=== PATIENT | female | born 1960 | race Caucasian/White ===

== ENCOUNTER 2020-04-27 11:32 | Outpatient (REF) | payer MEDICARE, OTHER, SELFPAY ==
[2020-04-27 13:21] LABS: MANUAL DIFF FLAG NO
[2020-04-27 13:24] LABS: Basophils Percent Auto 0.3 % (0-2); Eosinophils Absolute Auto 0.1 X10*3/uL (0.0-0.4); Eosinophils Percent Auto 2.3 % (0-4); Hematocrit 36.9 % (37-47); Imm Gran Abs Auto 0.01 X10*3/uL (0.00-0.03); Imm Gran Pct Auto 0.2 % (0.0-0.4); Lymphocytes Percent Auto 17.8 % (20-40); Mean Corpuscular HGB Conc 32.5 g/dl (31.0-35.0); Mean Corpuscular Volume 86.2 fL (80-98); Mean Platelet Volume 10.3 fL (9.4-12.3); Monocytes Absolute Auto 0.4 X10*3/uL (0.1-1.2); Monocytes Percent Auto 6.5 % (2-11); Neutrophils Absolute Auto 4.2 X10*3/uL (2.0-8.3); Neutrophils Percent Auto 72.9 % (45-73); Platelet Count 173 X10*3/uL (160-400); Red Blood Count 4.28 X10*6/uL (4.20-5.50); Red Cell Distribution Width 11.9 % (11.0-16.0); White Blood Count 5.7 X10*3/uL (4.8-10.8)
[2020-04-27 13:59] LABS: Alanine Aminotransferase 16 U/L (0-31); Albumin Level 4.2 g/dL (3.5-5.0); Alkaline Phosphatase 129 U/L (39-117); Anion Gap 13 (12-20); Aspartate Amino Transferase 16 U/L (5-31); Bilirubin Total 0.2 mg/dL (0.0-1.0); Blood Urea Nitrogen 24 mg/dL (9-16); C Reactive Protein 1.01 mg/dL (< or = 0.50); Calcium 8.4 mg/dL (8.4-10.2); Carbon Dioxide 23 mmol/L (22-29); Chloride 108 mmol/L (96-108); Estimated Glomerular Filt Rate 55; Glucose Random 163 mg/dL (60-115); Potassium 4.3 mmol/l (3.3-5.1); Sodium 140 mmol/L (135-145); Total Protein 6.6 g/dL (6.5-8.0)
[2020-04-27 14:13] LABS: Estimated Average Glucose 197 mg/dL; Hemoglobin A1c % 8.5 %
[2020-04-27 14:21] LABS: Free T4 (Free Thyroxine) 0.85 ng/dL (0.71-1.85); Thyroid Stimulating Hormone 1.87 mIU/mL (0.32-4.0)
[2020-04-27 18:20] LABS: Creatinine Urine 29.03 mg/dL; Microalbumin Urine < 5.0 mg/L
== END 2020-04-27 11:33 | disposition home or self-care (01) ==
LOC: HO.WFDLDS 11:32
PROVIDERS: Visit Provider Internal Medicine
DX: E11.9 Type 2 diabetes mellitus without complications (principal); K21.9 Gastro-esophageal reflux disease without esophagitis; R19.7 Diarrhea, unspecified; I10 Essential (primary) hypertension; E03.9 Hypothyroidism, unspecified
CPT/HCPCS: 36415; 80053; 82043; 83036; 84439; 84443; 85025; 86140; 87045; 87046

== ENCOUNTER 2021-01-09 18:32 | Emergency (ER) | payer OTHER, MEDICARE, SELFPAY ==
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
[2021-01-09 18:42] VITALS: BP 162/73; PULSE 106; RESP 16; TEMP 36.3; O2SAT 97; BMI 34.9
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
[2021-01-09 21:10] VITALS: BP 138/67; PULSE 87; RESP 18; TEMP 36.7; O2SAT 97
== END 2021-01-09 21:58 | disposition home or self-care (01) ==
PROVIDERS: Emergency Provider Internal Medicine; PCP Internal Medicine
DX: S13.4XXA Sprain of ligaments of cervical spine, initial encounter (principal); S20.211A Contusion of right front wall of thorax, initial encounter; E11.9 Type 2 diabetes mellitus without complications; V89.2XXA Person injured in unspecified motor-vehicle accident, traffic, initial encounter; Y93.9 Activity, unspecified; Y92.410 Unspecified street and highway as the place of occurrence of the external cause; Y99.9 Unspecified external cause status
CPT/HCPCS: 71046; 72040; 73030; 93005; 99284

== ENCOUNTER 2021-09-07 10:25 | Outpatient (REF) | payer MEDICARE, OTHER, SELFPAY ==
--- NOTE | 2021-09-07 14:12 | MHC.AU.ANR ---
Adult Audiological Evaluation Date of Visit: 09/07/21 Reason for Appointment: Audiological evaluation due to concern for decreased hearing. Ms. Estrada was seen at [facility] on 08/24/2021. At that time, the gonzales determined that test results were inconsistent and recommended a full audiological evaluation. She notes that she may have been distracted during testing. Ms. Estrada reports that she was first diagnosed with hearing loss in childhood. She states that she had several sets of PE tubes (last ones were placed in 1977. She was then told that tubes would no longer help and her hearing loss was nerve related. She was fit with hearing aids at age 15. She notes that she wore them for a number of years until they stopped working. She then purchased hearing aids again in 2013, and is pursuing new hearing aids through [facility] now. She reports difficulties following conversations in social settings or in the presence of background noise. Does patient feel they have a hearing loss?: Yes If Yes, Which Ear?: Both Ears When Was Hearing Difficulty First Noticed?: Childhood Has hearing been tested previously?: Yes Previous Hearing Test Results: [facility], 08/24/21 - Noted that results were inconsistent. Responses at that time were in the moderately severe to severe mixed hearing loss range in the left ear and severe to profound mixed hearing loss range in the right ear. SRTs were not consistent with PTAs. 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, lap hernia 2002, cystoscopy 2003, lung biopsy 2005, right rotator cuff repair 2007, right knee scope 2009, stroke 2009, MRSA infection 2010, right TNR in October and April 2014, Left TNY in July 2020, Allergies: Codeine, tramadol, acetaminophen, hydromorphone, oxycodone Medication List: Effexor, Klonopin, lamictal, Levoxyl, pantoprazole, Seroquel, hydrochloroquine, glipizide, topomax, zafurkulast, dicyclomine, albuterol sulfate, ketoconazole, fluticasone, prazosin, Vitamins and supplements Otoscopy: Right Ear: Significant scarring of the TM, clear canal Left Ear: Significant scarring of the TM, clear canal Tympanometry: Tympanometry performed due to: History of middle ear dysfunction Right Ear: Normal Middle Ear System (Type A) Left Ear: Reduced Middle Ear Compliance (Type As) Hearing Evaluation: Transducer(s) Used: Insert Earphones, Bone Conduction Method: Conventional Audiometry Stimuli Used: Pure Tones *Note: used ascending presentation,resulting in consistent responses and good FIRER MARINE /SRT agreement. Right Ear: Description of Hearing: Mild sloping to moderately-severe sensorineural hearing loss from 250-8000 Hz. Left Ear: Description of Hearing: Mild sloping to moderately-severe sensorineural hearing loss from 250-8000 Hz. Speech Recognition Threshold (SRT): Method Used: Monitored Live Voice Stimuli Used: Spondee Words Right Ear: 35 dBHL Left Ear: 35 dBHL Word Discrimination: Method: Recorded Lists Word Lists Used: NU-6 Right Ear: 100% at 70 dBHL Left Ear: 92% at 70 dBHL Comparison: Compared to the most recent evaluation: Thresholds have improved bilaterally. Responses were consistent with ascending presentation today. Better agreement and consistency of test results today compared to [facility] testing on 08/24/21. Recommendations: Audiological re-evaluation in one year. Trial with amplification is recommended. Ms. Estrada plans to return to [facility] [place] to pursue new hearing aids. Diagnosis: Primary Diagnosis: H90.3 Bilateral Sensorineural Hearing Loss Secondary Diagnosis: H69.92 Unspecified Eustachian Tube Dysfunction, Left Ear Services Performed: Services Performed: Comprehensive Audiological Evaluation (CPT 45827) Tympanometry (CPT 89209) Signature: Provider: Sherrie Lozano, [facility]
== END 2021-09-07 10:26 | disposition home or self-care (01) ==
LOC: HO.SH 10:25
PROVIDERS: Visit Provider Internal Medicine
DX: Z01.118 Encounter for examination of ears and hearing with other abnormal findings (principal); H90.3 Sensorineural hearing loss, bilateral; H69.92 Unspecified Eustachian tube disorder, left ear
CPT/HCPCS: 92557; 92567

== ENCOUNTER 2021-09-24 07:48 | Outpatient (REF) | payer MEDICARE, OTHER, SELFPAY ==
[2021-09-24 08:01] LABS: MANUAL DIFF FLAG NO
[2021-09-24 08:32] LABS: Basophils Percent Auto 0.4 % (0-2); Eosinophils Absolute Auto 0.1 X10*3/uL (0.0-0.4); Eosinophils Percent Auto 2.7 % (0-4); Hematocrit 35.8 % (37.0-47.0); Hemoglobin 11.8 g/dl (12.0-16.0); Imm Gran Abs Auto 0.01 X10*3/uL (0.00-0.03); Imm Gran Pct Auto 0.2 % (0.0-0.4); Lymphocytes Percent Auto 20.3 % (20-40); Mean Corpuscular Hemoglobin 27.9 pg (27.0-33.0); Mean Corpuscular Volume 84.6 fL (80.0-98.0); Mean Platelet Volume 9.7 fL (9.4-12.3); Monocytes Absolute Auto 0.4 X10*3/uL (0.1-1.2); Monocytes Percent Auto 8.5 % (2-11); Neutrophils Absolute Auto 3.3 x10*3/uL (2.0-8.3); Neutrophils Percent Auto 67.9 % (45-73); Platelet Count 164 X10*3/uL (160-400); Red Blood Count 4.23 X10*6/uL (4.20-5.50); White Blood Count 4.8 X10*3/uL (4.8-10.8)
[2021-09-24 08:34] LABS: Appearance Urine CLEAR; Color Urine YELLOW; Glucose Urine UA NEG (NEG); Leukocyte Esterase Urine NEG (NEG); Nitrite Urine NEG (NEG); Urine Blood NEG (NEG); Urine Ketones NEG (NEG); Urine Protein NEG (NEG-TRACE)
[2021-09-24 08:37] LABS: Estimated Average Glucose 171 mg/dL; Hemoglobin A1c % 7.6 %
[2021-09-24 08:56] LABS: Alanine Aminotransferase 20 U/L (0-31); Albumin Level 4.2 g/dL (3.5-5.0); Alkaline Phosphatase 137 U/L (39-117); Anion Gap 12 (12-20); Aspartate Amino Transferase 16 U/L (5-31); Bilirubin Total 0.4 mg/dL (0.0-1.0); Blood Urea Nitrogen 18 mg/dL (9-16); Calcium 9.9 mg/dL (8.4-10.2); Carbon Dioxide 23 mmol/L (22-29); Chloride 110 mmol/L (96-108); Cholesterol 195 mg/dL; Creatinine Urine 43.73 mg/dL; Estimated Glomerular Filt Rate 55; Glucose Fasting 180 mg/dL (60-99); HDL Cholesterol 60 mg/dL; LDL Cholesterol Calculated 117 mg/dl; Microalbum/Creatinine Ratio Ur 13.7 ug/mg cr; Potassium 4.3 mmol/L (3.3-5.1); Sodium 141 mmol/L (135-145); Total Protein 6.7 g/dL (6.5-8.0); Triglycerides 90 mg/dL
[2021-09-24 09:18] LABS: Free T4 (Free Thyroxine) 1.04 ng/dL (0.71-1.85); Thyroid Stimulating Hormone 1.01 uIU/mL (0.32-4.0); Vitamin D 25-OH Total 49.4 ng/mL (>30)
== END 2021-09-24 07:49 | disposition home or self-care (01) ==
LOC: HO.LAB 07:48
PROVIDERS: PCP Internal Medicine; Visit Provider Internal Medicine
DX: E11.9 Type 2 diabetes mellitus without complications (principal); M19.90 Unspecified osteoarthritis, unspecified site; I10 Essential (primary) hypertension; E78.00 Pure hypercholesterolemia, unspecified; M06.9 Rheumatoid arthritis, unspecified; E03.9 Hypothyroidism, unspecified
CPT/HCPCS: 36415; 80053; 80061; 81003; 82043; 82306; 83036; 84439; 84443; 85025

== ENCOUNTER 2022-04-21 12:29 | Outpatient (REF) | payer MEDICARE, OTHER, SELFPAY ==
[2022-04-21 13:45] LABS: Basophils Percent Auto 0.2 % (0-2); Eosinophils Percent Auto 0.5 % (0-4); Hematocrit 35.9 % (37.0-47.0); Hemoglobin 11.9 g/dl (12.0-16.0); Imm Gran Abs Auto 0.04 X10*3/uL (0.00-0.03); Imm Gran Pct Auto 0.5 % (0.0-0.4); Lymphocytes Absolute Auto 0.5 X10*3/uL (1.2-4.9); Lymphocytes Percent Auto 6.2 % (20-40); MANUAL DIFF FLAG SCAN; Mean Corpuscular HGB Conc 33.1 g/dl (31.0-35.0); Mean Corpuscular Volume 84.5 fL (80.0-98.0); Mean Platelet Volume 10.1 fL (9.4-12.3); Monocytes Absolute Auto 0.2 X10*3/uL (0.1-1.2); Monocytes Percent Auto 2.3 % (2-11); Neutrophils Absolute Auto 7.8 x10*3/uL (2.0-8.3); Neutrophils Percent Auto 90.3 % (45-73); Platelet Count 177 X10*3/uL (160-400); Red Blood Count 4.25 X10*6/uL (4.20-5.50); Red Cell Distribution Width 12.7 % (11.0-16.0); SCAN SMEAR FLAG 1; White Blood Count 8.6 X10*3/uL (4.8-10.8)
[2022-04-21 13:53] LABS: Estimated Average Glucose 203 mg/dL; Hemoglobin A1c % 8.7 %
[2022-04-21 14:12] LABS: Alanine Aminotransferase 20 U/L (0-31); Albumin Level 4.2 g/dL (3.5-5.0); Alkaline Phosphatase 122 U/L (39-117); Anion Gap 17 (12-20); Aspartate Amino Transferase 18 U/L (5-31); Bilirubin Total 0.3 mg/dL (0.0-1.0); Blood Urea Nitrogen 26 mg/dL (9-16); Calcium 9.3 mg/dL (8.4-10.2); Carbon Dioxide 20 mmol/L (22-29); Chloride 108 mmol/L (96-108); Estimated Glomerular Filt Rate 45; Glucose Random 284 mg/dL (60-115); Potassium 4.6 mmol/L (3.3-5.1); Sodium 140 mmol/L (135-145); Total Protein 6.9 g/dL (6.5-8.0)
[2022-04-21 14:59] LABS: SLIDE REVIEW VERIFIED
== END 2022-04-21 12:30 | disposition home or self-care (01) ==
LOC: HO.LAB 12:29
PROVIDERS: Visit Provider Internal Medicine
DX: E11.22 Type 2 diabetes mellitus with diabetic chronic kidney disease (principal); N18.9 Chronic kidney disease, unspecified; J45.909 Unspecified asthma, uncomplicated
CPT/HCPCS: 36415; 80053; 83036; 85025

== ENCOUNTER 2022-05-23 15:02 | Outpatient (REF) | payer MEDICARE, OTHER, SELFPAY ==
--- NOTE | ~2022-05-23 | US_ITS ---
EXAMINATION: US VENOUS ULTRASOUND WITH DOPPLER LOWER EXTREMITY, RIGHT CLINICAL INFORMATION: Right knee pain. COMPARISON: None TECHNIQUE: Ultrasound of the deep veins is performed from the hip to the calf with compression sonography and color and pulse Doppler assessment. Spectral analysis with color-flow imaging is performed. FINDINGS: There is normal venous compression and respiratory variation and augmented flow. The visualized common femoral vein, superficial femoral vein, profunda femoral vein, popliteal vein, and the trifurcation region shows no evidence of deep venous thrombosis. No right popliteal cyst. The subcutaneous soft tissues are unremarkable. If the patient's symptoms persist, followup ultrasound in 5 days 7 days might be of value to exclude proximal propagation from a non-visualized calf vein. US/US venous duplex LE RT IMPRESSION: No evidence of deep venous thrombosis in the visualized veins of the right lower extremity.
== END 2022-05-23 15:03 | disposition home or self-care (01) ==
LOC: HO.US 15:02
PROVIDERS: PCP Internal Medicine; Visit Provider Orthopaedic Surgery
DX: M25.561 Pain in right knee (principal)
CPT/HCPCS: 93971

== ENCOUNTER 2022-07-26 15:29 | Outpatient (REF) | payer MEDICARE, OTHER, SELFPAY ==
[2022-07-26 15:43] LABS: MANUAL DIFF FLAG NO
[2022-07-26 16:16] LABS: Basophils Percent Auto 0.6 % (0-2); Eosinophils Absolute Auto 0.2 X10*3/uL (0.0-0.4); Eosinophils Percent Auto 3.4 % (0-4); Hematocrit 36.8 % (37.0-47.0); Imm Gran Abs Auto 0.02 X10*3/uL (0.00-0.03); Imm Gran Pct Auto 0.4 % (0.0-0.4); Lymphocytes Absolute Auto 1.2 X10*3/uL (1.2-4.9); Lymphocytes Percent Auto 21.9 % (20-40); Mean Corpuscular HGB Conc 32.6 g/dl (31.0-35.0); Mean Corpuscular Hemoglobin 27.3 pg (27.0-33.0); Mean Corpuscular Volume 83.6 fL (80.0-98.0); Mean Platelet Volume 9.5 fL (9.4-12.3); Monocytes Absolute Auto 0.4 X10*3/uL (0.1-1.2); Monocytes Percent Auto 7.2 % (2-11); Neutrophils Absolute Auto 3.5 x10*3/uL (2.0-8.3); Neutrophils Percent Auto 66.5 % (45-73); Platelet Count 187 X10*3/uL (160-400); Red Cell Distribution Width 11.7 % (11.0-16.0); White Blood Count 5.3 X10*3/uL (4.8-10.8)
[2022-07-26 16:37] LABS: Estimated Average Glucose 243 mg/dL; Hemoglobin A1c % 10.1 %
[2022-07-26 16:40] LABS: Alanine Aminotransferase 17 U/L (0-31); Albumin Level 4.1 g/dL (3.5-5.0); Alkaline Phosphatase 119 U/L (39-117); Anion Gap 13 (12-20); Aspartate Amino Transferase 15 U/L (5-31); Bilirubin Total 0.4 mg/dL (0.0-1.0); Blood Urea Nitrogen 20 mg/dL (9-16); Calcium 9.4 mg/dL (8.4-10.2); Carbon Dioxide 24 mmol/L (22-29); Chloride 109 mmol/L (96-108); Estimated Glomerular Filt Rate 56; Glucose Random 157 mg/dL (60-115); Potassium 4.4 mmol/L (3.3-5.1); Sodium 142 mmol/L (135-145); Total Protein 6.6 g/dL (6.5-8.0)
[2022-07-26 16:59] LABS: Free T4 (Free Thyroxine) 0.84 ng/dL (0.71-1.85); Thyroid Stimulating Hormone 1.42 uIU/mL (0.32-4.0)
== END 2022-07-26 15:30 | disposition home or self-care (01) ==
LOC: HO.LAB 15:29
PROVIDERS: PCP Internal Medicine; Visit Provider Internal Medicine
DX: I12.9 Hypertensive chronic kidney disease with stage 1 through stage 4 chronic kidney disease, or unspecified chronic kidney disease (principal); E11.22 Type 2 diabetes mellitus with diabetic chronic kidney disease; N18.9 Chronic kidney disease, unspecified; E03.9 Hypothyroidism, unspecified
CPT/HCPCS: 36415; 80053; 83036; 84439; 84443; 85025; 87070; 87077; 87186; 87205

== ENCOUNTER 2022-08-29 15:24 | Emergency (ER) | payer MEDICARE, OTHER, SELFPAY ==
--- NOTE | ~2022-08-29 | CT_ITS ---
EXAMINATION: CT CERVICAL SPINE WITHOUT CONTRAST CLINICAL INFORMATION: Neck pain status post fall. COMPARISON: Cervical spine radiographs dated 01/09/2021. TECHNIQUE: Multiple axial images of the cervical spine were obtained without the administration of intravenous contrast. Coronal and sagittal reformatted images were obtained. This CT examination was performed using dose optimization techniques as appropriate, variously including the following: *Automated exposure control *Adjustment of mA and/or kV according to patient size (this includes techniques or standardized protocols for targeted exams where dose is matched to indication/reason for exam; i.e. extremities or head) *Use of iterative reconstruction technique DLP: 500.33 mGy-cm FINDINGS: There is mild reversal the normal cervical lordosis with moderate to severe multilevel degenerative disc disease from C4-5 to C6-7. Minimal bilateral neural foraminal narrowing is seen at these levels as well. The vertebral bodies and odontoid processes are intact. The facet joints are unremarkable. The spinous and transverse processes are intact. The cervical soft tissues are unremarkable. There is no lymphadenopathy. The thyroid gland is unremarkable. The lung apices show motion artifact limiting evaluation without overt abnormality. CT/CT cervical spine wo IV con IMPRESSION: 1. Mild reversal the normal cervical lordosis may be secondary to positioning and/or muscle spasm. 2. Multilevel degenerative changes without acute abnormality.
--- NOTE | ~2022-08-29 | CT_ITS ---
EXAMINATION: CT HEAD WITHOUT CONTRAST CLINICAL INFORMATION: Headache status post injury. COMPARISON: Head CT scan dated 08/22/2014. TECHNIQUE: Contiguous axial imaging was performed from the skull base to vertex without intravenous administration of contrast. Coronal and sagittal reformatted images were obtained. This CT examination was performed using dose optimization techniques as appropriate, variously including the following: *Automated exposure control *Adjustment of mA and/or kV according to patient size (this includes techniques or standardized protocols for targeted exams where dose is matched to indication/reason for exam; i.e. extremities or head) *Use of iterative reconstruction technique DLP: 607.30 mGy-cm FINDINGS: There is mild widening of the cortical sulci and associated ventriculomegaly. The lateral ventricles are symmetrical. The third and fourth ventricles are in their normal midline position. The basilar and prepontine cisterns are unremarkable. Mild periventricular microvascular changes are seen. There is no acute intra or extracerebral abnormality. There is no mass effect or midline shift. Sections through the bony calvarium are unremarkable. The orbits are intact. The paranasal sinuses are clear. The mastoid air cells are clear, but show hypoaeration of the mastoid processes, left greater than right without associated abnormality. CT/CT head/brain wo IV con IMPRESSION: No acute intracranial pathology.
[2022-08-29 16:12] VITALS: BP 150/70; PULSE 91; RESP 20; TEMP 36.7; O2SAT 98; BMI 37.2
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
[2022-08-29] MEDS: Ibuprofen 600 MG TABLET PO (21:53)
[2022-08-29] MEDS: Ondansetron ODT 4 MG TAB.RAPDIS TRANSLINGU (21:53)
== END 2022-08-29 23:01 | disposition home or self-care (01) ==
PROVIDERS: Emergency Provider Internal Medicine; PCP Internal Medicine
DX: S09.90XA Unspecified injury of head, initial encounter (principal); W17.89XA Other fall from one level to another, initial encounter; Y93.89 Activity, other specified; Y92.410 Unspecified street and highway as the place of occurrence of the external cause; Y99.9 Unspecified external cause status
CPT/HCPCS: 70450; 72125; 99283; 99284

== ENCOUNTER 2023-05-09 | Outpatient (REF) | payer MEDICARE, OTHER, SELFPAY ==
[2023-05-08 10:15] LABS: MANUAL DIFF FLAG NO
[2023-05-08 10:49] LABS: Basophils Percent Auto 0.6 % (0-2); Eosinophils Absolute Auto 0.1 X10*3/uL (0.0-0.4); Eosinophils Percent Auto 2.4 % (0-4); Hematocrit 39.5 % (37.0-47.0); Hemoglobin 12.9 g/dl (12.0-16.0); Imm Gran Abs Auto 0.01 X10*3/uL (0.00-0.03); Imm Gran Pct Auto 0.2 % (0.0-0.4); Lymphocytes Absolute Auto 1.1 X10*3/uL (1.2-4.9); Lymphocytes Percent Auto 22.2 % (20-40); Mean Corpuscular HGB Conc 32.7 g/dl (31.0-35.0); Mean Corpuscular Hemoglobin 28.4 pg (27.0-33.0); Mean Corpuscular Volume 86.8 fL (80.0-98.0); Mean Platelet Volume 9.9 fL (9.4-12.3); Monocytes Absolute Auto 0.4 X10*3/uL (0.1-1.2); Monocytes Percent Auto 8.6 % (2-11); Neutrophils Absolute Auto 3.4 x10*3/uL (2.0-8.3); Platelet Count 175 X10*3/uL (160-400); Red Blood Count 4.55 X10*6/uL (4.20-5.50); Red Cell Distribution Width 12.4 % (11.0-16.0); White Blood Count 5.1 X10*3/uL (4.8-10.8)
[2023-05-08 10:51] LABS: Estimated Average Glucose 157 mg/dL; Hemoglobin A1c % 7.1 % (<6.0)
[2023-05-08 11:22] LABS: Alanine Aminotransferase 16 U/L (0-31); Albumin Level 4.1 g/dL (3.5-5.0); Alkaline Phosphatase 117 U/L (39-117); Anion Gap 13 (12-20); Aspartate Amino Transferase 18 U/L (5-31); Bilirubin Total 0.3 mg/dL (0.0-1.0); Blood Urea Nitrogen 17 mg/dL (9-16); Calcium 9.7 mg/dL (8.4-10.2); Carbon Dioxide 21 mmol/L (22-29); Chloride 111 mmol/L (96-108); Estimated Glomerular Filt Rate 46; Glucose Random 163 mg/dL (60-115); Potassium 3.9 mmol/L (3.3-5.1); Sodium 141 mmol/L (135-145)
[2023-05-08 11:29] LABS: Free T4 (Free Thyroxine) 0.87 ng/dL (0.71-1.85); Thyroid Stimulating Hormone 1.03 uIU/mL (0.32-4.0)
== END 2023-05-09 00:01 | disposition home or self-care (01) ==
LOC: HO.LAB
PROVIDERS: PCP Internal Medicine; Visit Provider Internal Medicine
DX: E03.9 Hypothyroidism, unspecified (principal); I12.9 Hypertensive chronic kidney disease with stage 1 through stage 4 chronic kidney disease, or unspecified chronic kidney disease; E11.22 Type 2 diabetes mellitus with diabetic chronic kidney disease; N18.9 Chronic kidney disease, unspecified; Z86.73 Personal history of transient ischemic attack (TIA), and cerebral infarction without residual deficits
CPT/HCPCS: 36415; 80053; 83036; 84439; 84443; 85025

== ENCOUNTER 2023-06-27 15:35 | Outpatient (REF) | payer MEDICARE, OTHER, SELFPAY | END 2023-06-27 15:36 | disposition home or self-care (01) | LOC: HO.XRAY 15:35 | PROVIDERS: PCP Internal Medicine; Visit Provider Internal Medicine | DX: M16.0 Bilateral primary osteoarthritis of hip (principal); Z91.81 History of falling | CPT/HCPCS: 73502 ==

== ENCOUNTER 2023-07-14 07:31 | Outpatient (REF) | payer MEDICARE, OTHER, SELFPAY ==
--- NOTE | ~2023-07-14 | CT_ITS ---
EXAMINATION: CT HIP WITHOUT CONTRAST, RIGHT CLINICAL INFORMATION: Hip pain, status post fall. COMPARISON: X-ray right hip 06/27/2023. TECHNIQUE: Multidetector volumetric imaging was obtained through the right hip without contrast material. Multiplanar reformatted images were submitted in coronal and sagittal planes. This CT examination was performed using dose optimization techniques as appropriate, variously including the following: *Automated exposure control *Adjustment of mA and/or kV according to patient size (this includes techniques or standardized protocols for targeted exams where dose is matched to indication/reason for exam; i.e. extremities or head) *Use of iterative reconstruction technique DLP: 234 mGy-cm FINDINGS: The femoral head is well seated in the acetabulum. There is moderate right hip arthritis, with joint space loss, acetabular subchondral cysts and sclerosis. No acute displaced fracture is identified in the proximal femur or the visualized acetabulum/pubic rami. No dislocation. Moderate symphysis pubis degeneration. No large right hip joint effusion is evident. No significant muscle tear is identified by CT. There is soft tissue swelling and subcutaneous stranding/edema in the lateral soft tissues, partially imaged. No loculated collection is identified in this noncontrast CT. No groin lymphadenopathy. No acute findings seen within the pelvis. CT/CT hip RT wo IV con IMPRESSION: 1. Moderate right hip arthritis. 2. No acute fracture or dislocation is identified. There is ongoing symptoms, clinical concern, lack of weight-bearing, MRI evaluation is more sensitive. 3. Soft tissue swelling and subcutaneous edema/stranding in the lateral soft tissues of the hip.
== END 2023-07-14 07:32 | disposition home or self-care (01) ==
LOC: HO.CT 07:31
PROVIDERS: PCP Internal Medicine; Visit Provider Internal Medicine
DX: M25.551 Pain in right hip (principal)
CPT/HCPCS: 73700

== ENCOUNTER 2023-09-11 10:30 | Outpatient (REF) | payer MEDICARE, OTHER, SELFPAY ==
--- NOTE | ~2023-09-11 | XR_ITS ---
EXAMINATION: XR CHEST 2 VIEWS CLINICAL INFORMATION: Question right pneumothorax. COMPARISON: Prior chest radiographs, most recently 01/09/2021. TECHNIQUE: Frontal and lateral views of the chest were obtained. FINDINGS: The heart, great vessels, pulmonary vasculature and mediastinum are normal. The lungs show no focal infiltrate, effusion or pneumothorax. There is slight chronic blunting of the right lateral costophrenic angle. There is no acute osseous abnormality. There are old, healed right rib fractures. Median sternotomy wires are noted. A telemetry monitor device is noted. There is a right upper quadrant surgical clip. XR/XR chest 2V IMPRESSION: No active cardiopulmonary disease.
== END 2023-09-11 10:31 | disposition home or self-care (01) ==
LOC: HO.XRAY 10:30
PROVIDERS: PCP Internal Medicine; Visit Provider Internal Medicine
DX: J93.9 Pneumothorax, unspecified (principal)
CPT/HCPCS: 71046

== ENCOUNTER 2023-10-04 15:24 | Outpatient (REF) | payer MEDICARE, OTHER, SELFPAY ==
--- NOTE | ~2023-10-04 | XR_ITS ---
EXAMINATION: XR CHEST 2 VIEWS XR RIBS, RIGHT CLINICAL INFORMATION: Right apical pneumothorax. COMPARISON: Chest radiographs dated 09/11/2023. TECHNIQUE: Frontal and lateral views of the chest were obtained. 4 views of the left ribs were obtained. FINDINGS: Lungs are clear. There has been a prior median sternotomy. No consolidation, pneumothorax, or pleural effusion. The cardiomediastinal silhouette and pulmonary vasculature are normal. A hospital monitor device is noted. There are old, healed right third, fifth and seventh posterolateral rib fractures. No acute fractures are identified. There is no focal periosteal thickening. The right upper quadrant surgical clips. There is abdominal herniorrhaphy mesh, and left upper quadrant anastomotic obinna are noted. XR/XR ribs RT 2V IMPRESSION: There are old, healed right third, fifth and seventh rib fractures. No acute fracture or dislocation is seen. No pneumothorax or pleural effusion is seen. There is no focal periosteal thickening.
--- NOTE | ~2023-10-04 | XR_ITS ---
EXAMINATION: XR CHEST 2 VIEWS XR RIBS, RIGHT CLINICAL INFORMATION: Right apical pneumothorax. COMPARISON: Chest radiographs dated 09/11/2023. TECHNIQUE: Frontal and lateral views of the chest were obtained. 4 views of the left ribs were obtained. FINDINGS: Lungs are clear. There has been a prior median sternotomy. No consolidation, pneumothorax, or pleural effusion. The cardiomediastinal silhouette and pulmonary vasculature are normal. A equipment monitor phototypesetting device is noted. There are old, healed right third, fifth and seventh posterolateral rib fractures. No acute fractures are identified. There is no focal periosteal thickening. The right upper quadrant surgical clips. There is abdominal herniorrhaphy mesh, and left upper quadrant anastomotic obinna are noted. XR/XR chest 2V IMPRESSION: There are old, healed right third, fifth and seventh rib fractures. No acute fracture or dislocation is seen. No pneumothorax or pleural effusion is seen. There is no focal periosteal thickening.
== END 2023-10-04 15:25 | disposition home or self-care (01) ==
LOC: HO.XRAY 15:24
PROVIDERS: Visit Provider Internal Medicine
DX: J93.83 Other pneumothorax (principal); S22.41XD Multiple fractures of ribs, right side, subsequent encounter for fracture with routine healing
CPT/HCPCS: 71046; 71100

== ENCOUNTER 2023-10-26 13:38 | Outpatient (REF) | payer MEDICARE, OTHER, SELFPAY ==
[2023-10-26 15:51] LABS: Appearance Urine Clear; Color Urine Yellow; Glucose Urine UA >=1000 mg/dL (Negative); Leukocyte Esterase Urine Negative (Negative); Nitrite Urine Negative (Negative); PH 5.5 (5.0-9.0); Specific Gravity - Urine 1.015 (1.005-1.025); UMIC TRIGGER UACC YES; Urine Blood Negative (Negative); Urine Ketones Negative (Negative); Urine Protein Negative (Neg-Trace)
[2023-10-26 16:22] LABS: Bacteria Urine None Seen (None Seen); Hyaline Casts Urine 0-2 /LPF (0-2); RBC Urine 0-2 /HPF (0-2); Squamous Epithelial Cell Urine 0-2 /HPF (0-2); WBC Urine 0-5 /HPF (0-5)
== END 2023-10-26 13:39 | disposition home or self-care (01) ==
LOC: HO.LAB 13:38
PROVIDERS: PCP Internal Medicine; Visit Provider Internal Medicine
DX: R30.0 Dysuria (principal)
CPT/HCPCS: 81001; 81003; 87086

== ENCOUNTER 2024-09-17 14:07 | Outpatient (REF) | payer MEDICARE, OTHER, SELFPAY ==
--- NOTE | ~2024-09-17 | XR_ITS ---
EXAMINATION: XR FOOT, LEFT CLINICAL INFORMATION: M79.672 - Pain in left foot COMPARISON: None available. TECHNIQUE: AP, lateral, and oblique views of the left foot. FINDINGS: No fracture, dislocation, or suspicious bone lesion. Normal bone mineralization. Normal alignment. Mild to moderate degenerative changes first MTP joint. Mild degenerative arthritis in the dorsal intertarsal joints. Normal plantar arch. There is a small to moderate-sized plantar calcaneal spur. Soft tissues appear normal aside from vascular calcifications. XR/XR foot LT min 3V IMPRESSION: 1. Mild degenerative changes as discussed. No acute bony abnormalities. 2. Vascular calcifications in the soft tissues. Electronically signed by: Simone Howe MD 09/18/2024 02:16 PM EDT
--- OUTSIDE RECORDS SUMMARY | 2024-09-17 18:24 | XMS_ITS | Clinical Summary ---
Author Organization [facility] 299 [facility] Address [address] [place] [address] Phone Care Team Providers Care Snowblower Mechanic Name Role Phone Jose Martin Gray MD Primary Care Provider [phone] Allergies Active Allergy Reactions Criticality Noted Date Comments Codeine Anaphylaxis High 08/06/2024 Hydromorphone Unknown 11/13/2018 Other Reaction(s): Confusion/delirium, Other Reaction(s): Confusion/delirium Other Reaction(s): Confusion/delirium Oxycodone-Acetaminophen Nausea Only 10/10/2013 Level of certainty: Very Certain Tramadol Other 10/10/2013 Level of certainty: Moderately Certain; Other Reaction(s): Confusion/delirium Level of certainty: Moderately Certain ??Other Reaction(s): Confusion/delirium Medications No known medications Active Problems Problem Noted Date Diagnosed Date Other dysphagia 08/06/2024 Personal hx of gastric bypass 05/30/2024 Gastroesophageal reflux disease without esophagi tis 05/30/2024 Irritable bowel syndrome wit h both constipation and diarrhea 05/30/2024 Encounters Date Type Department Care Team Description 09/05/2024 9:12 AM EDT - 09/05/2024 11:59 PM EDT Hospital Encounter [facility] Xray [address] [place] [phone] Dysphagia, unspecified type Discharge Disposition: Home or Self Care 09/05/2024 Telephone Gastroenterology - [address] [phone] Corazon Rogers MA Results 09/03/2024 Telephone Gastroenterology - [address] [phone] Saeed Murphy MD 08/12/2024 Telephone Gastroenterology - [address] [place] [phone] Corazon Rogers MA Results 08/06/2024 3:00 PM EST Office Visit Gastroenterology - [address] [phone] Saeed Murphy MD H/O gastric bypass (Primary Dx); Other iron deficiency anemia; Dysphagia, unspecified type; Gastroesophageal reflux disease without esophagitis; Personal hx of gastric bypass; Other dysphagia from Last 3 Months Immunizations Name Administration Dates Next Due Td Tetanus diptheria (Tdvax) 7yo and older 10/04 Social History Tobacco Use Types Packs/Day Years Used Date Smoking Tobacco: Never Assessed Comments Unknown Sex and Gender Information Value Date Recorded Sex Assigned at Female 09/05/2024 9:10 AM EDT Legal Sex Female 5:32 PM EST Gender Identity Female 09/05/2024 9:10 AM EDT Sexual Orientation Straight 09/05/2024 9: 10 AM EDT Obstetrics History Last Filed Vital Signs Vital Sign Reading Time Taken Comments Blood Pressure - - Pulse - - Temperature - - Respiratory Rate - - Oxygen Saturation - - Inhaled Oxygen Concentration - - Weight 84.4 kg (186 lb) 08/06/2024 2:49 PM EST Height 162.6 cm (5' 4 ) 08/06/2024 2:49 PM EST Body Mass Index 31.93 08/06/2024 2:49 PM EST Plan of Treatment Upcoming Encounters Date Type Department Care Team (Late st Contact Info) Description 10/15/2024 10:00 AM EDT Office Visit Gastroenterology - [address] [phone] Saeed Murphy MD [address] [address] Health Maintenance Due Date Last Done Comments Breast Cancer Screening 1958 Diabetes: Annual Foot Exam 1968 Diabetes: Annual Retina Eye Exam 1968 Pneumococcal Vaccine: 50+ Years (1 of 2 - PCV) 1977 Zoster Vaccines (1 of 2) 2008 RSV Immunization Patients 60+ Years Old (1 - Risk 60-74 years 1-dose series) 2018 Cholesterol Screening (Lipid Panel) 06/04/2024 Colorectal Cancer Screening: Colonoscopy 06/04/2024 Depression Screening 06/04/2024 Falls Risk Assessment 06/04/2024 Hepatitis C Screening 06/04/2024 Medicare Annual Wellness Visit 06/04/2024 Osteoporosis Screening (Bone Density Screening) 06/04/2024 Social Influencers of Health Screening 06/04/2024 Diabetes: Annual Urine Albumin-Creatinine Ratio (uACR) 08/06/2024 Diabetes: Blood Sugar Control Test (HGBA1C) 08/06/2024 Diabetes: Annual GFR (Glomerular Filtration Rate) 08/06/2025 08/06/2024, 09/16/2020, 01/10/2020, Additional history exists DTaP,Tdap,and Td Vaccines (4 - Td or Tdap) 06/07/2033 06/07/2023, 11/16/2020, 10/04/2000 COVID-19 Vaccine Completed 03/15/2024, 07/2021, 07/03/2021, Additional history exists Influenza Vaccine Completed 03/15/2024, 08/08/2020 HIB Vaccines Aged Out No longer eligi ble based on patient's age to complete this topic HPV Vaccines Aged Out No longer eligi ble based on patient's age to complete this topic Hepatitis A Vaccines Aged Out No long er eligible based on patient's age to complete this topic Hepatitis B Vaccines Aged Out No long er eligible based on patient's age to complete this topic IPV Vaccines Aged Out No longer eligi ble based on patient's age to complete this topic MMR Vaccines Aged Out No longer eligi ble based on patient's age to complete this topic Meningococcal ACWY Vaccine Aged Out N o longer eligible based on patient's age to complete this topic Meningococcal B Vacine Aged Out No lo nger eligible based on patient's age to complete this topic RSV Immunization Patients Under 20 months Aged Out No longer eligible based on patient's age to complete this topic Varicella Vaccines Aged Out No longer eligible based on patient's age to complete this topic Procedures Procedure Name Priority Date/Time Associated Diagnosis Comments XR ESOPHAGRAM Routine 09/05/2024 9:39 AM EDT Dysphagia, unspecified type CBC WITH AUTO DIFFERENTIAL Routine 08/06/2024 3:31 PM EST Bariatric surgery status Anemia, due to inadequate iron intake COPPER, SERUM Routine 08/06/2024 3:31 PM EST Bariatric surgery status CBC AND DIFFERENTIAL Routine 08/06/2024 3:31 PM EST Bariatric surgery status Anemia, due to inadequate iron intake COMPREHENSIVE METABOLIC PANEL Routine 08/06/2024 3:31 PM EST Bariatric surgery status METHYLMALONIC ACID, SERUM Routine 08/06/2024 3:31 PM EST Bariatric surgery status FERRITIN Routine 08/06/2024 3:31 PM EST Bariatric surgery status IRON AND TIBC Routine 08/06/2024 3:31 PM EST Bariatric surgery status from Last 3 Months Results * XR Esophagram (09/05/2024 9:39 AM EDT) Anatomical Region Laterality Modality Head and Neck Radiographic Kylie ging 09/05/2024 10:3 4 AM EDT Impressions 09/05/2024 11:52 AM EDT 1. Flash laryngeal penetration without darin aspiration noted on rapid sequence swallowing of thin barium. 2. Moderate amounts of spontaneous gastroesophageal reflux visualized status post gastric bypass. -------- FINAL REPORT -------- Dictated By: Allison Morris Dictated Date: 09/05/2024 10:34 ET Assigned Physician: Bill Garcia Reviewed and Electronically Signed By: Bill Garcia Signed Date: 09/05/2024 11:52 ET Workstation ID: [id number] Transcribed By: Self Edit Transcribed Date: 09/05/2024 11:31 ET Resident/PA/BOLT HEADER: Allison Morris Narrative 09/05/2024 11:52 AM EDT FINDINGS: Double contrast esophagram performed. COMPARISON: No prior esophagram imaging HISTORY: Patient is a 64-year-old female with history of globus sensation. History of gastric bypass. Coil Former radiographs: 1 view chest radiograph demonstrates cardiac and mediastinal contours within normal limits. Sternotomy wires are present. Surgical clips are noted in the right upper quadrant consistent with history of cholecystectomy. There is a leadless pacemaker visualized over the left heart. There are posterior 5th and 7th right-sided chronic appearing rib fractures. Cervical fusion hardware is noted. Coil Former lateral radiograph of the neck demonstrates that the patient is undergone previous anterior fusion at the C4-5 level. The surgical hardware appears well-positioned and intact. Degenerative changes are present at C5-7. There is no prevertebral soft tissue swelling. The epiglottis and aryepiglottic folds are of normal appearance. The included portion of the airway is widely patent. Effervescent crystals were administered orally. Thick and thin barium were administered orally under fluoroscopic control. Pharyngoesophagram: Rapid sequence imaging of the hypopharynx during swallowing demonstrates prompt initiation of swallowing. There is normal soft palate elevation. There is flash laryngeal penetration without darin aspiration. There is no residual in the vallecula nor in the piriform sinuses. Thoracic esophagus: Normal distensibility, motility and mucosal pattern without evidence of ulceration, stricture or mass formation. Hiatal hernia: None. Gastric anatomy is consistent with gastric bypass. Reflux: Moderate amounts of spontaneous gastroesophageal reflux visualized. 13mm Barium pill: Swallowed without difficulty. Prompt passage of pill from the esophagus into the stomach. DAP: 701.5 Gycm^2 Procedure Note Bill Garcia MD - 09/05/2024 FINDINGS: Double contrast esophagram performed. COMPARISON: No prior esophagram imaging HISTORY: Patient is a 64-year-old female with history of globus sensation.History of gastric bypass. Coil Former radiographs: 1 view chest radiograph demonstrates cardiac andmediastinal contours within normal limits. Sternotomy wires are present.Surgical clips are noted in the right upper quadrant consistent withhistory of cholecystectomy. There is a leadless pacemaker visualized overthe left heart. There are posterior 5th and 7th right-sided chronicappearing rib fractures. Cervical fusion hardware is noted. Coil Former lateralradiograph of the neck demonstrates that the patient is undergone previousanterior fusion at the C4-5 level. The surgical hardware appearswell-positioned and intact. Degenerative changes are present at C5- 7.There is no prevertebral soft tissue swelling. The epiglottis andaryepiglottic folds are of normal appearance. The included portion of theairway is widely patent. Effervescent crystals were administered orally. Thick and thin barium wereadministered orally under fluoroscopic control. Pharyngoesophagram: Rapid sequence imaging of the hypopharynx duringswallowing demonstrates prompt initiation of swallowing. There is normalsoft palate elevation. There is flash laryngeal penetration without frankaspiration. There is no residual in the vallecula nor in the piriformsinuses. Thoracic esophagus: Normal distensibility, motility and mucosal patternwithout evidence of ulceration, stricture or mass formation. Hiatal hernia: None. Gastric anatomy is consistent with gastric bypass. Reflux: Moderate amounts of spontaneous gastroesophageal refluxvisualized. 13mm Barium pill: Swallowed without difficulty. Prompt passage of pillfrom the esophagus into the stomach. DAP: 701.5 Gycm^2 IMPRESSION: 1. Flash laryngeal penetration without darin aspiration noted on rapidsequence swallowing of thin barium. 2. Moderate amounts of spontaneous gastroesophageal reflux visualizedstatus post gastric bypass. -------- FINAL REPORT -------- Dictated By: Allison Morris Dictated Date: 09/05/2024 10:34 ET Assigned Physician: Bill Garcia Reviewed and Electronically Signed By: Bill Garcia Signed Date: 09/05/2024 11:52 ET Workstation ID: [id number] Transcribed By: Self Edit Transcribed Date: 09/05/2024 11:31 ET Resident/PA/BOLT HEADER: Allison Morris Saeed Murphy MD IMG FLUOROSCOPY PROCEDURES Dede l Result * (ABNORMAL) CBC auto differential (08/06/2024 3:31 PM EST) WBC 3.7(L) 4.8 - 10.8 K/mcL LAB HEMETOLOGY METHOD 08/06/2024 4:12 PM EST [facility] RBC 4.00 3.80 - 4.80 M/mcL LAB HEMETOLOGY METHOD 08/06/2024 4:12 PM EST [facility] Hemoglobin 11.8 11.5 - 16.0 g/dL LAB HEMETOLOGY METHOD 08/06/2024 4:12 PM [facility] Hematocrit 36.3 35.0 - 47.0 % LAB HEMETOLOGY METHOD 08/06/2024 4:12 PM [facility] MCV 91.2 79.0 - 98.0 FL LAB HEMETOLOGY METHOD 08/06/2024 4:12 PM [facility] MCH 29.6 27.0 - 32.0 pcg LAB HEMETOLOGY METHOD 08/06/2024 4:12 PM [facility] MCHC 32.5 32.0 - 37.0 g/dL LAB HEMETOLOGY METHOD 08/06/2024 4:12 PM [facility] RDW 13.1 11.0 - 15.0 % LAB HEMETOLOGY METHOD 08/06/2024 4:12 PM [facility] Platelets 167 130 - 400 K/mcL LAB HEMETOLOGY METHOD 08/06/2024 4:12 PM [facility] MPV 9.8 7.0 - 11.0 FL LAB HEMETOLOGY METHOD 08/06/2024 4:12 PM [facility] NRBC 0.0 <1.0 % LAB HEMETOLOGY METHOD 08/06/2024 4:12 PM [facility] NRBC Absolute 0.00 <0.10 K/mcL LAB HEMETOLOGY METHOD 08/06/2024 4:12 PM [facility] Neutrophils Relative 67.2 % LAB HEMETOLOGY METHOD 08/06/2024 4:12 PM [facility] Lymphocytes Relative 22.1 % LAB HEMETOLOGY METHOD 08/06/2024 4:12 PM [facility] Monocytes Relative 7.5 % LAB HEMETOLOGY METHOD 08/06/2024 4:12 PM [facility] Eosinophils Relative 2.4 % LAB HEMETOLOGY METHOD 08/06/2024 4:12 PM EST [facility] Basophils Relative 0.5 % LAB HEMETOLOGY METHOD 08/06/2024 4:12 PM [facility] Immature Granulocytes Relative 0.3 % LAB HEMETOLOGY METHOD 08/06/2024 4:12 PM [facility] Neutrophils Absolute 2.49 1.50 - 7.00 K/mcL LAB HEMETOLOGY METHOD 08/06/2024 4:12 PM EST [facility] Lymphocytes Absolute 0.82(L) 1.00 - 5.00 K/mcL LAB HEMETOLOGY METHOD 08/06/2024 4:12 PM [facility] Monocytes Absolute 0.28 0.20 - 1.00 K/mcL LAB HEMETOLOGY METHOD 08/06/2024 4:12 PM EST [facility] Eosinophils Absolute 0.09 0.00 - 0.50 K/mcL LAB HEMETOLOGY METHOD 08/06/2024 4:12 PM EST [facility] Basophils Absolute 0.02 0.00 - 0.20 K/mcL LAB HEMETOLOGY METHOD 08/06/2024 4:12 PM [facility] Immature Granulocytes Absolute 0.01 0.00 - 0.03 K/mcL LAB HEMETOLOGY METHOD 08/06/2024 4:12 PM [facility] Blood Venous blood specimen / Unknown Venipuncture / Unknown 08/06/2024 3:31 PM EST 08/06/2024 3:59 PM EST us Saeed Murphy MD LAB BLOOD ORDERABLES Final Resu lt [facility] [address] [place] [address], * Methylmalonic acid, serum (08/06/2024 3:31 PM EST) Pathologist [facility] Methylmalonic Acid 0.26 <0.40 umol/L 08/10/2024 11:22 AM EST [facility] Comment: If applicable, any drug confirmation testing reported here was developed and the performance characteristics determined by [facility]. This confirmation testing has not been cleared or approved by the FDA. The laboratory is regulated under CLIA as qualified to perform high-complexity testing. This test is used for patient testing purposes. It should not be regarded as investigational or for research. Test performed at [facility], [address] , [place], [place] ??[address] ? [phone] Maria Luisa Brady MD, PhD - Emergency Medicine Blood Venous blood specimen / Unknown Venipuncture / Unknown 08/06/2024 3:31 PM EST 08/06/2024 3:59 PM EST Saeed Murphy MD LAB BLOOD ORDERABLES Final Resu lt [facility] [address] [place] [address] * Iron and TIBC (08/06/2024 3:31 PM EST) [facility] Iron 54 40 - 150 mcg/dL LAB CHEMISTRY METHOD 08/06/2024 4:44 PM EST [facility] TIBC 278 250 - 450 mcg/dL LAB CHEMISTRY METHOD 08/06/2024 4:44 PM EST [facility] Iron Saturation 19 15 - 50 % LAB CHEMISTRY METHOD 08/06/2024 4:44 PM EST [facility] Blood Venous blood specimen / Unknown Venipuncture / Unknown 08/06/2024 3:31 PM EST 08/06/2024 3:59 PM EST Saeed Murphy MD LAB BLOOD ORDERABLES Final Resu lt [facility] [address] [place] [address], [place] [phone] * Copper, serum (08/06/2024 3:31 PM EST) Pathologist [facility] Copper 1474 810 - 1990 ug/L 08/09/2024 3:19 PM EST [facility] Comment: Copper values may be elevated to twice the normal levels in . Elevated results may be due to sample collected in a non-certified trace element-free tube. This test was developed and the performance characteristics determined by [facility]. It has not been cleared or approved by the FDA. The laboratory is regulated under CLIA as qualified to perform high-complexity testing. This test is used for patient testing purposes. It should not be regarded as investigational or for research. Test performed at [facility], [address] , [place], [place] ??[address] ? [phone] Maria Luisa Brady MD, PhD - Emergency Medicine Blood Venous blood specimen / Unknown Venipuncture / Unknown 08/06/2024 3:31 PM EST 08/06/2024 3:59 PM EST us Saeed Murphy MD LAB BLOOD ORDERABLES Final Resu lt [facility] [address] [place] [address] * Ferritin (08/06/2024 3:31 PM EST) Pathologist [facility] Ferritin 163 8 - 252 ng/mL LAB CHEMISTRY METHOD 08/06/2024 4:43 PM EST [facility] Blood Venous blood specimen / Unknown Venipuncture / Unknown 08/06/2024 3:31 PM EST 08/06/2024 3:59 PM EST us Saeed Murphy MD LAB BLOOD ORDERABLES Final Resu lt [facility] [address] [place] [address], [place] [phone] * (ABNORMAL) Comprehensive metabolic panel (08/06/2024 3:31 PM EST) Sodium 139 133 - 145 mmol/L LAB CHEMISTRY METHOD 08/06/2024 4:44 PM [facility] Potassium 4.7 3.5 - 5.5 mmol/L LAB CHEMISTRY METHOD 08/06/2024 4:44 PM [facility] Chloride 111(H) 96 - 110 mmol/L LAB CHEMISTRY METHOD 08/06/2024 4:44 PM [facility] CO2 22 21 - 32 mmol/L LAB CHEMISTRY METHOD 08/06/2024 4:44 PM [facility] Anion Gap 6 3 - 11 LAB CHEMISTRY METHOD 08/06/2024 4:44 PM [facility] Glucose 103(H) 70 - 100 mg/dL LAB CHEMISTRY METHOD 08/06/2024 4:44 PM [facility] BUN 26(H) 5 - 25 mg/dL LAB CHEMISTRY METHOD 08/06/2024 4:44 PM [facility] Creatinine 1.07 0.50 - 1.10 mg/dL LAB CHEMISTRY METHOD 08/06/2024 4:44 PM [facility] eGFR 57(L) >=60 mL/min/1. 73m2 LAB CHEMISTRY METHOD 08/06/2024 4:44 PM [facility] Comment:Calculation based on the??Chronic Kidney Disease Epidemiology Collaboration (CKD-EPI) equation refit??without adjustment for race. BUN/Creatinine Ratio 24.3 LAB CHEMISTRY METHOD 08/06/2024 4:44 PM [facility] Calcium 9.2 8.5 - 10.5 mg/dL LAB CHEMISTRY METHOD 08/06/2024 4:44 PM [facility] AST (SGOT) 13 10 - 42 unit/L LAB CHEMISTRY METHOD 08/06/2024 4:44 PM [facility] ALT (SGPT) 22 10 - 60 unit/L LAB CHEMISTRY METHOD 08/06/2024 4:44 PM EST [facility] Alkaline Phosphatase 157(H) 42 - 121 unit/L LAB CHEMISTRY METHOD 08/06/2024 4:44 PM EST [facility] Total Protein 6.9 6.0 - 8.0 g/dL LAB CHEMISTRY METHOD 08/06/2024 4:44 PM EST [facility] Albumin 4.0 3.2 - 5.0 g/dL LAB CHEMISTRY METHOD 08/06/2024 4:44 PM [facility] Total Bilirubin 0.3 0.0 - 1.4 mg/dL LAB CHEMISTRY METHOD 08/06/2024 4:44 PM [facility] Blood Venous blood specimen / Unknown Venipuncture / Unknown 08/06/2024 3:31 PM EST 08/06/2024 3:59 PM EST Saeed Murphy MD LAB BLOOD ORDERABLES Final Resu lt [facility] [address] [place] [address], from Last 3 Months Insurance [employer] MEDICARE MEDICARE [facility] Care Teams Snowblower Mechanic Relationship Specialty Start Date End Date Jose Martin Gray MD [address] [place] [address] Dr Yuliet [place] PCP - General Internal Medicine 07/18/24
--- OUTSIDE RECORDS SUMMARY | 2024-09-17 18:24 | XMS_ITS | Encounter Summary ---
Author Organization [facility] Address [address] [place] [address] Care Team Providers Care Sanitation Tank Washer Name Role Phone Jose Martin Gray MD Primary Care Provider Encounter Details Date Type Department Care Team (Late st Contact Info) Description 09/03/2024 Telephone Gastroenterology - [address] [place] [phone] Saeed Murphy MD [address] [place] [address] Social History Tobacco Use Types Packs/Day Years Used Date Smoking Tobacco: Never Assessed Comments Unknown Sex and Gender Information Value Date Recorded Sex Assigned at Female 09/05/2024 9:10 AM EDT Legal Sex Female 5:32 PM EST Gender Identity Female 09/05/2024 9:10 AM EDT Sexual Orientation Straight 09/05/2024 9: 10 AM EDT documented as of this encounter Progress Notes * Reyna Villarreal - 09/03/2024 11:07 AM EDT Pt r/s for 10/08/24 at 10am * Teresita Romero - 09/03/2024 10:35 AM EDT Called pt to r/s 11/07 appt, left VM to call back. documented in this encounter Plan of Treatment Upcoming Encounters Date Type Department Care Team (Late st Contact Info) Description 10/15/2024 10:00 AM EDT Office Visit Gastroenterology - [address] [facility] [address] [place] [phone] Saeed Murphy MD 299 [facility] [address] [place] [address] documented as of this encounter Visit Diagnoses Not on filedocumented in this encounter Care Teams Sanitation Tank Washer Relationship Specialty Start Date End Date Jose Martin Gray MD [address] [place] [address] PCP - General Internal Medicine 07/18/24 documented as of this encounter
--- OUTSIDE RECORDS SUMMARY | 2024-09-17 18:24 | XMS_ITS | Encounter Summary ---
Author Organization [facility] Address [address] [place] [address] Care Team Providers Care Theatrical Agent Name Role Phone Jose Martin Gray MD Primary Care Provider [phone] Reason for Referral * Imaging (Routine) - Closed Specialty Diagnoses / Procedures Referred By Halle evans Referred To Contact Radiology Diagnoses Dysphagia, unspecified type Procedures XR Esophagram Saeed Murphy MD [address] [address] Phone: tel: fax: [facility] [address] [place] [address] Phone: tel: Referral ID Status Reason Start Date Expiration Date Visits Re quested Visits Authorized [id number] Closed 08/06/2024 08/06/2025 1 1 Reason for Visit * Imaging (Routine) - Closed Specialty Diagnoses / Procedures Referred By Halle evans Referred To Contact Radiology Diagnoses Dysphagia, unspecified type Procedures XR Esophagram Saeed Murphy MD [address] [address] Phone: tel: fax: [facility] [address] [place] [address] Phone: tel: Referral ID Status Reason Start Date Expiration Date Visits Re quested Visits Authorized [id number] Closed 08/06/2024 08/06/2025 1 1 Encounter Details Date Type Department Care Team (Latest Contact Info) Description 09/05/2024 9:12 AM EDT - 09/05/2024 11:59 PM EDT Hospital Encounter [facility] [address] [place] [id number] Dysphagia, unspecified type Discharge Disposition: Home or Self Care Social History Tobacco Use Types Packs/Day Years Used Date Smoking Tobacco: Never Assessed Comments Unknown Sex and Gender Information Value Date Recorded Sex Assigned at Female 09/05/2024 9:10 AM EDT Legal Sex Female 5:32 PM EST Gender Identity Female 09/05/2024 9:10 AM EDT Sexual Orientation Straight 09/05/2024 9: 10 AM EDT documented as of this encounter Discharge Disposition Disposition Code Departure Means Destination Home or Self Care documented in this encounter Plan of Treatment Upcoming Encounters Date Type Department Care Team (Late st Contact Info) Description 10/15/2024 10:00 AM EDT Office Visit Gastroenterology - [address] [facility] [address] [place] [phone] Saeed Murphy MD [address] [facility] [address] [place] [id number] documented as of this encounter Procedures Procedure Name Priority Date/Time Associated Diagnosis Comments XR ESOPHAGRAM Routine 09/05/2024 9:39 AM EDT Dysphagia, unspecified type documented in this encounter Results * XR Esophagram (09/05/2024 9:39 AM [...] Signed Date: 09/05/2024 11:52 ET Workstation ID: [id number] Transcribed By: Self Edit Transcribed Date: 09/05/2024 11:31 ET Resident/PA/FELLER MACHINE OPERATOR: Allison Morris Narrative 09/05/2024 11:52 AM EDT FINDINGS: Double contrast esophagram performed. COMPARISON: No prior esophagram imaging HISTORY: Patient is a 64-year-old female with history of globus sensation. History of gastric bypass. Relationship Management Lead radiographs: 1 view chest radiograph demonstrates cardiac and mediastinal contours within normal limits. Sternotomy wires are present. Surgical clips are noted in the right upper quadrant consistent with history of cholecystectomy. There is a leadless pacemaker visualized over the left heart. There are posterior 5th and 7th right-sided chronic appearing rib fractures. Cervical fusion hardware is noted. Relationship Management Lead lateral radiograph of the neck demonstrates that [...] history of globus sensation.History of gastric bypass. Relationship Management Lead radiographs: 1 view chest radiograph demonstrates cardiac andmediastinal contours within normal limits. Sternotomy wires are present.Surgical clips are noted in the right upper quadrant consistent withhistory of cholecystectomy. There is a leadless pacemaker visualized overthe left heart. There are posterior 5th and 7th right-sided chronicappearing rib fractures. Cervical fusion hardware is noted. Relationship Management Lead lateralradiograph of the neck demonstrates that the [...] Signed Date: 09/05/2024 11:52 ET Workstation ID: [id number] Transcribed By: Self Edit Transcribed Date: 09/05/2024 11:31 ET Resident/PA/FELLER MACHINE OPERATOR: Allison Morris Saeed Murphy MD IMG FLUOROSCOPY PROCEDURES Dede eugene Result documented in this encounter Visit Diagnoses Diagnosis Dysphagia, unspecified type documented in this encounter Administered Medications Inactive Administered Medications - up to 3 most recent administrations Medication Order MAR Action Action Date Dose Rate Site barium sulfate (E-Z-DISK) tablet 700 mg 700 mg, oral, Once in imaging, Starting on Angi 09/05/24 at 0927, For 1 dose, Swallow whole with 1-2 swallows of water just prior to fluoroscopic examination. Given 09/05/2024 9:28 AM EDT 700 mg barium sulfate (E-Z-HD) 98 % suspension 100 mL 100 mL, oral, Once in imaging, Starting on Angi 09/05/24 at 0927, For 1 dose Given 09/05/2024 9:28 AM EDT 100 mL barium sulfate (E-Z-PAQUE) 96 % (w/w) suspension 100 mL 100 mL, oral, Once in imaging, Starting on Angi 09/05/24 at 0927, For 1 dose Given 09/05/2024 9:28 AM EDT 100 mL documented in this encounter Care Teams Theatrical Agent Relationship Specialty Start Date End Date Jose Martin Gray MD [address] [place] [address] Dr Yuliet MA PCP - General Internal Medicine 07/18/24 documented as of this encounter
--- OUTSIDE RECORDS SUMMARY | 2024-09-17 18:24 | XMS_ITS | Encounter Summary ---
Author Organization [facility] Address [address] [place] [address] Care Team Providers Care Ticker Wirer Name Role Phone Jose Martin Gray MD Primary Care Provider [phone] Reason for Visit * Reason Onset Date Comments Results 09/05/2024 Encounter Details Date Type Department Care Team (Late st Contact Info) Description 09/05/2024 Telephone Gastroenterology - [address] [place] [address] Corazon Rogers MA Results Social History Tobacco Use Types Packs/Day Years Used Date Smoking Tobacco: Never Assessed Comments Unknown Sex and Gender Information Value Date Recorded Sex Assigned at Female 09/05/2024 9:10 AM EDT Legal Sex Female 5:32 PM EST Gender Identity Female 09/05/2024 9:10 AM EDT Sexual Orientation Straight 09/05/2024 9: 10 AM EDT documented as of this encounter Progress Notes * Corazon Rogers MA - 09/05/2024 2:42 PM EDT Lmom UGI was basically normal, if she is still having symptoms she needs to have an EGD. Please call to book. * Corazon Rogers MA - 09/05/2024 2:41 PM EDT ----- Message from Tennille Murphy MD sent at 09/05/2024 2:33 PM EDT ----- Please call her. Her upper GI series really does not show anything significantly wrong. There was 1time when she swallowed and it was not perfectly coordinated and she does have some reflux. If she is still symptomatic the next step would be an upper endoscopy and if you could set this up for thatwould be great thank you documented in this encounter Plan of Treatment Upcoming Encounters Date Type Department Care Team (Late st Contact Info) Description 10/15/2024 10:00 AM EDT Office Visit Gastroenterology - [address] [facility] [address] [place] [address] Saeed Murphy MD 299 [facility] [address] [place] [address] documented as of this encounter Visit Diagnoses Not on filedocumented in this encounter Care Teams Ticker Wirer Relationship Specialty Start Date End Date Jose Martin Gray MD [address] [place] [address] [address] Jones PCP - General Internal Medicine 07/18/24 documented as of this encounter
[2024-09-18 19:03] LABS: A. Phagocytphilium DNA,RT-PCR NOT DETECTED (NOT DETECTED); Babesia Microti DNA, RT-PCR NOT DETECTED (NOT DETECTED); Borrelia Miyamotoi,DNA RT-PCR NOT DETECTED (NOT DETECTED); E.Chaffeensis DNA RT-PCR NOT DETECTED (NOT DETECTED); Lyme(Borrelia ssp)DNA RT-PCR NOT DETECTED (NOT DETECTED)
== END 2024-09-17 14:08 | disposition home or self-care (01) ==
LOC: HO.HMGCX 14:07
PROVIDERS: PCP Internal Medicine; Visit Provider Physician Assistant
DX: M79.672 Pain in left foot (principal); S30.860D Insect bite (nonvenomous) of lower back and pelvis, subsequent encounter; W57.XXXD Bitten or stung by nonvenomous insect and other nonvenomous arthropods, subsequent encounter
CPT/HCPCS: 36415; 73630; 87468; 87469; 87478; 87484; 87798

== ENCOUNTER 2024-09-17 14:07 | Outpatient (AMB) | payer MEDICARE, OTHER, SELFPAY ==
[2024-09-17 14:26] VITALS: BP 112/76; PULSE 90; TEMP 36.8; O2SAT 97
--- NOTE | 2024-09-17 14:26 | MHC.OFFWIV ---
Intake Vital Signs 09/17/24 14:26 Height 5 ft 4 in BMI Reason not done Patient refused/unable BP 112/76 Blood Pressure Location Lt brachial Position Sitting Pulse 90 Pulse Source Pulse Oximeter Temp 98.2 F Temp Source Oral Pulse Oximetry (%) 97 Oxygen Delivery Method Room Air Intake Visit Reasons: EP LT Foot bruised & painful Patient Tobacco Use Status: Former Tobacco user Allergies codeine [Codeine] Allergy (Severe, Verified 09/17/24 14:26) Anaphylaxis acetaminophen [Percocet] Allergy (Unknown, Verified 09/17/24 14:26) Unknown tramadol [TRAMADOL] Adverse Reaction (Severe, Verified 09/17/24 14:26) diarrhea/incoherence hydromorphone [Dilaudid] Adverse Reaction (Unknown, Verified 09/17/24 14:26) Hallucinations oxycodone [From Percocet] Adverse Reaction (Unknown, Verified 09/17/24 14:26) Vomiting Do you need a note to return to daycare/school/sports/work: No HPI HPI Comments History of Present Illness Details This is a 64-year-old female presenting for evaluation of a tick bite that occurred on Monday and left foot pain that she noted yesterday. On Monday evening the patient's removed a live tick from her back which was engorged at the time. Patient brought the tick to this appointment and it is alive in a sealed container. Additionally, patient reports having pain on the top of her left foot yesterday without any known injury or trauma. Patient states she has pain while wearing shoe and while ambulating. Patient denies any history of Lyme disease, ehrlichiosis or or anaplasmosis. [facility] Medical History Anxiety Depression Diabetes PTSD (post-traumatic stress disorder) Social History Alcohol intake: never Patient Tobacco Use Status: Former Tobacco user Review of Systems Const All systems reviewed & are unremarkable except as noted in HPI and below Reports no additional complaints Eyes Reports no additional complaints ENT Reports no additional complaints Card Reports no additional complaints Resp Reports no additional complaints GI Reports no additional complaints Reports no additional complaints Musc Details: left foot pain Skin/Breast Reports system reviewed and no additional complaints, except as documented and Reports other (intact tick removed right mid-back) Neuro Reports no additional complaints Psych Reports no additional complaints Endo Reports no additional complaints [place]/Lymph Reports no additional complaints Physical Exam Vital Signs: Last Vital Signs Temp 98.2 F 09/17/24 14:26 Pulse 90 09/17/24 14:26 BP 112/76 09/17/24 14:26 Pulse Ox 97 09/17/24 14:26 Oxygen Delivery Method Room Air 09/17/24 14:26 Const General: cooperative, healthy appearing, comfortable, no acute distress, well developed, alert, awake and Physically active Nutritional Appearance: average body habitus Orientation/consciousness: patient oriented x3 Limitations: no limitations Skin Other: No cutaneous lesions noted on the back at the site of tick removal; no erythema, no induration, no warmth or tenderness to touch. Neuro General: patient oriented x3 Extrem Other: Mild ecchymosis overlying the left 3rd, 4th and 5th distal metatarsals and digits on the dorsal surface of the left foot with tenderness to touch; no pain to palpation on the plantar surface of the left foot; toenails intact without discoloration or subungual hematoma. Left lower extremity: foot Psych Appearance: grossly normal Mental Status: mental status grossly normal Insight: Good insight present (Psych) Judgement: Good judgement present (Psych) Results Reviewed Results Reviewed: L. foot imaging reviewed; no acute fracture noted. Assessment & Plan Assessment & Plan (1) Tick bite of back: Comment: Tick panel is ordered and results are pending; will presume negative and patient will return in 4-6 weeks for repeat testing for a definitive result. Code(s): S30.860A - Insect bite (nonvenomous) of lower back and pelvis, initial encounter; W57.XXXA - Bitten or stung by nonvenomous insect and other nonvenomous arthropods, initial encounter Qualifiers: Encounter type: initial encounter Qualified Code(s): S30.860A - Insect bite (nonvenomous) of lower back and pelvis, initial encounter; W57.XXXA - Bitten or stung by nonvenomous insect and other nonvenomous arthropods, initial encounter Plan: Repeat testing in 4-6 weeks if tick panel drawn today is negative. (2) Foot pain, left: Comment: No acute fracture noted on imaging. Code(s): M79.672 - Pain in left foot Plan: Naprosyn 500 mg b.i.d. times 7-10 days. Patient to wear a firm soled shoe for immobilization and stabilization of this injury. Orders: Orders XR foot LT min 3V Today M79.672 - Pain in left foot Tick-borne Disease Molecular Today S30.860A - Insect bite (nonvenomous) of lower back and pelvis, initial encounter, W57.XXXA - Bitten or stung by nonvenomous insect and other nonvenomous arthropods, initial encounter Medications: New naproxen (EC-Naprosyn) 500 mg PO BID 20 tabs 0RF Coding Level of Care Code Est Pt Level 4 (65694) Diagnoses Tick bite of back, initial encounter S30.860A; W57.XXXA Encounter type: initial encounter Foot pain, left M79.672 Time Spent (min) 30
== END 2024-09-17 15:37 | disposition home or self-care (01) ==
PROVIDERS: PCP Internal Medicine; Visit Provider Physician Assistant
DX: S30.860A Insect bite (nonvenomous) of lower back and pelvis, initial encounter (principal); W57.XXXA Bitten or stung by nonvenomous insect and other nonvenomous arthropods, initial encounter; M79.672 Pain in left foot

== ENCOUNTER → 2024-09-17 14:47 | Outpatient (BNV) | payer MEDICARE, OTHER, SELFPAY | PROVIDERS: PCP Internal Medicine; Visit Provider Radiology Diagnostic Radiology | DX: M79.672 Pain in left foot (principal) | CPT/HCPCS: 73630 ==

== ENCOUNTER 2024-10-24 15:28 | Outpatient (AMB) | payer MEDICARE, OTHER, SELFPAY ==
[2024-10-24 15:31] VITALS: BP 132/70; PULSE 100; RESP 16; TEMP 36.4; O2SAT 96; BMI 32.6
--- NOTE | 2024-10-24 15:31 | A.OFFPC_ITS ---
Vital Signs 10/24/24 15:31 Height 5 ft 4 in Weight 190 lb BMI 32.6 BP 132/70 Respiration 16 Pulse 100 Pulse Source Pulse Oximeter Temp 97.6 F Temp Source Temporal Artery Scan Pulse Oximetry (%) 96 Oxygen Delivery Method Room Air Intake Visit Reasons: Hospital F/U - see comments Rn Lpn Lvn Required: No Accompanied by: Spouse Allergies codeine [Codeine] Allergy (Severe, Verified 10/24/24 15:32) Anaphylaxis acetaminophen [Percocet] Allergy (Unknown, Verified 10/24/24 15:32) Unknown tramadol [TRAMADOL] Adverse Reaction (Severe, Verified 10/24/24 15:32) diarrhea/incoherence hydromorphone [Dilaudid] Adverse Reaction (Unknown, Verified 10/24/24 15:32) Hallucinations oxycodone [From Percocet] Adverse Reaction (Unknown, Verified 10/24/24 15:32) Vomiting Tobacco use date assessed: 10/24/24 Fall risk assessment: 1 Fall in past year Last assessed Fall Risk: 10/24/24 Dental Screening Dental Screen Date: 10/24/24 Did you have a dental visit in the last 12 months?: Yes Did you have a dental problem in the last 6 months where you did not have access to dental care?: No Was dental information given to patient?: Patient has dentist (pt has dentures) HPI HPI Comments History of Present Illness Details The patient is a 64 year old female with past medical history of CVA 2014, 2022, bipolar disorder, DM, asthma, presenting for follow up She was hospitalized at [facility] from 10/12-10/15/24. She had been seen prior in [place] after falling. She was noted to have worsening subdural hematomas and was hospitalized for frequent neuro checks. She was released on 10/15. Seen again in the ER on 10/20/24 for nausea, reimaged and the bleeding was improving. Has appointment scheduled with neurosurgery November 04. GI: Recently seen by Dr Murphy for GI consultation. Ordered barium swallow. Will likely plan for colonoscopy DM: on jardiance, glipizide. Due for A1C. Checks blood glucose most mornings. Sees Dr Hansel Fregoso last year Colonoscopy: 2019 (poor prep) ROS CONSTITUTIONAL: Denies weight loss, fever and chills. HEENT: Denies changes in vision and hearing. RESPIRATORY: Denies SOB and cough. CV: Denies palpitations and CP GI: Denies abdominal pain, nausea, vomiting and diarrhea. : Denies dysuria and urinary frequency. MSK: Denies new myalgia and joint pain. SKIN: Denies rash and pruritus. NEUROLOGICAL: Denies headache PSYCHIATRIC: Denies recent changes in mood. PHYSICAL EXAM: GENERAL: Alert and oriented x 3. NAD EYES: EOMI. Anicteric. HENT: Moist mucous membranes. No scleral icterus. No cervical lymphadenopathy. LUNGS: Clear to auscultation bilaterally. CARDIOVASCULAR: Regular rate and rhythm. No murmur. No JVD. ABDOMEN: Soft, non-tender +bs EXTREMITIES: No edema. Non-tender. SKIN: No rashes or lesions. Warm. NEUROLOGIC: No focal neurological deficits. CN II-XII grossly intact PSYCHIATRIC: Cooperative. Appropriate mood and affect [facility] Medical History Anxiety PTSD (post-traumatic stress disorder) Depression Diabetes Family History Mother No problems noted. Father No problems noted. Social History Housing: House Alcohol intake: current Alcohol intake frequency: holidays/special occasions only Patient Tobacco Use Status: Former Tobacco user service: No Current occupational status: retired Cognitive needs: Yes (cane) Hearing needs: Yes (b/l hearing aids) Vision needs: Yes (rx glasses) Questionnaire PHQ-9 Over the last 2 weeks, how often have you been bothered by any of the following problems? 1. Little interest or pleasure in doing things: not at all 2. Feeling down, depressed, or hopeless: not at all 3. Trouble falling or staying asleep, or sleeping too much: not at all 4. Feeling tired or having little energy: not at all 5. Poor appetite or overeating: not at all 6. Feeling bad about yourself - or that you are a failure or have let yourself or your family down: not at all 7. Trouble concentrating on things, such as reading the newspaper or watching television: not at all 8. Moving or speaking so slowly that other people could have noticed. Or the opposite - being so fidgety or restless that you have been moving around a lot more than usual: not at all 9. Thoughts that you would be better off or of hurting yourself in some way: not at all Total score: 0 Depression Screening Interpretation: Negative Depression Screening Done: Yes 86345 - PHQ-9 Billing: Yes Source: Developed by Drs. Yariel De La Rosa, Tammi Romero, Emir Zaman and colleagues, with an educational christiane from [employer]. Thrive Questionnaire Date Thrive assessed: 10/24/24 I am a: Patient What is your living situation today?: I have a steady place to live Within the past 12 months, did the food you bought not last and you didn't have the money to get more?: Never true Within the past 12 months, did you worry whether your food would run out before you got money to buy more?: Never true Do you have trouble paying for medicines?: No Do you have trouble getting transportation to medical appointments?: No Do you have trouble paying your heating and electricity bill?: No Do you have trouble taking care of your child, family member or friend?: No Do you have trouble with day-to-day activities such as bathing, preparing meals, shopping, managing finances, etc.?: No Are you currently unemployed and looking for a job?: No Are you interested in more education?: No Please select the resources that you would like help with: None THRIVE Score: 0 AUDIT C Alcohol Use Questionnaire (AUDIT-C) 1. How often do you have a drink containing alcohol?: Monthly or less 2. How many drinks containing alcohol do you have on a typical day when you are drinking?: 1 or 2 3. How often do you have six or more drinks on one occasion?: Never Total Score: 1 MARIE-7 AMB Questionnaire MARIE-7 Date MARIE - 7 assessed: 10/24/24 Feeling nervous, anxious, or on edge: 0 = Not at all Not being able to stop or control worryin = Not at all Worrying too much about different things: 0 = Not at all Trouble relaxin = Not at all Being so restless that it is hard to sit still: 0 = Not at all Becoming easily annoyed or irritable: 0 = Not at all Feeling afraid as if something awful might happen: 0 = Not at all Total MARIE-7 score (0-4 normal; 5-9 mild; 10-14 moderate; 15-21 severe): 0 Source: Developed by Drs. Yariel De La Rosa, Tammi Romero, Emir Zaman and colleagues, with an educational christiane from [employer]. Physical exam (Primary Care) Vital Signs: Last Vital Signs Temp 97.6 F 10/24/24 15:31 Pulse 100 10/24/24 15:31 Resp 16 10/24/24 15:31 BP 132/70 10/24/24 15:31 Pulse Ox 96 10/24/24 15:31 Oxygen Delivery Method Room Air 10/24/24 15:31 BMI result Body Mass Index 32.6 Tobacco/Smoking Status: Tobacco use Status Tobacco use date assessed 10/24/24 10/24/24 15:41 Patient Tobacco Use Status Former Tobacco user 10/24/24 15:41 PHQ-9: PHQ-9 Score PHQ-9: Total score 0 10/24/24 15:55 Depression Screening Interpretation: Negative Thrive Assessment: Date of Thrive Assessment Date Thrive assessed 10/24/24 10/24/24 15:41 Coding Level of Care Code New Pt Level 4 (97016) Diagnoses Recurrent major depressive disorder, in partial remission F33.41 Depression Type: major depressive disorder Major depression recurrence: recurrent Active/Remission status: in partial remission Type 2 diabetes mellitus with hyperglycemia, without long-term current use of insulin E11.65 Diabetes mellitus type: type 2 Diabetes mellitus lineman apprentice insulin use: without lineman apprentice use Diabetes mellitus complication status: with hyperglycemia Anxiety F41.9 Subdural hematoma S06.5XAA History of CVA (cerebrovascular accident) Z86.73 Additional Codes PHQ-9 - 51346 - PHQ-9 Billing: Yes ([id number]) Assessment & Plan Assessment & Plan (1) Depression: Code(s): F32.9 - Major depressive disorder, single episode, unspecified Category: Medical Qualifiers: Depression Type: major depressive disorder Major depression recurrence: recurrent Active/Remission status: in partial remission Qualified Code(s): F33.41 - Major depressive disorder, recurrent, in partial remission (2) Diabetes: Code(s): E11.9 - Type 2 diabetes mellitus without complications Category: Medical Qualifiers: Diabetes mellitus type: type 2 Diabetes mellitus detention insulin use: without detention use Diabetes mellitus complication status: with hyperglycemia Qualified Code(s): E11.65 - Type 2 diabetes mellitus with hyperglycemia (3) Anxiety: Code(s): F41.9 - Anxiety disorder, unspecified Category: Medical (4) Subdural hematoma: Code(s): S06.5XAA - Traumatic subdural hemorrhage with loss of consciousness status unknown, initial encounter Category: Medical (5) History of CVA (cerebrovascular accident): Code(s): Z86.73 - Personal history of transient ischemic attack (TIA), and cerebral infarction without residual deficits Category: Medical Plan 64 y/o to establish care Past medical, surgical and social history reviewed DM-Check A1C Hypothyroid-continue levothyroxine Orders: Orders Complete Blood Count Auto Diff 10/24/24 E11.9 - Type 2 diabetes mellitus without complications, F32.9 - Major depressive disorder, single episode, unspecified, F41.9 - Anxiety disorder, unspecified, F43.10 - Post-traumatic stress disorder, unspecified Comprehensive Met. Panel 10/24/24 E11.9 - Type 2 diabetes mellitus without complications, F32.9 - Major depressive disorder, single episode, unspecified, F41.9 - Anxiety disorder, unspecified, F43.10 - Post-traumatic stress disorder, unspecified IRON PROFILE 10/24/24 E11.9 - Type 2 diabetes mellitus without complications, F32.9 - Major depressive disorder, single episode, unspecified, F41.9 - Anxiety disorder, unspecified, F43.10 - Post-traumatic stress disorder, unspecified Ferritin 10/24/24 E11.9 - Type 2 diabetes mellitus without complications, F32.9 - Major depressive disorder, single episode, unspecified, F41.9 - Anxiety disorder, unspecified, F43.10 - Post-traumatic stress disorder, unspecified Vitamin B12 and Folate 10/24/24 E11.9 - Type 2 diabetes mellitus without complications, F32.9 - Major depressive disorder, single episode, unspecified, F41.9 - Anxiety disorder, unspecified, F43.10 - Post-traumatic stress disorder, unspecified Comprehensive Met. Panel 3 Months E11.9 - Type 2 diabetes mellitus without complications Tick-borne Disease Molecular 10/24/24 W57.XXXA - Bitten or stung by nonvenomous insect and other nonvenomous arthropods, initial encounter TSH reflex Free T4 10/24/24 E11.9 - Type 2 diabetes mellitus without complications, F32.9 - Major depressive disorder, single episode, unspecified, F41.9 - Anxiety disorder, unspecified, F43.10 - Post-traumatic stress disorder, unspecified Hemoglobin A1c 10/24/24 E11.9 - Type 2 diabetes mellitus without complications, F32.9 - Major depressive disorder, single episode, unspecified, F41.9 - Anxiety disorder, unspecified, F43.10 - Post-traumatic stress disorder, unspecified Hemoglobin A1c 3 Months E11.9 - Type 2 diabetes mellitus without complications
--- OUTSIDE RECORDS SUMMARY | 2024-10-24 17:13 | XMS_ITS | Clinical Summary ---
Author Organization [facility] Address [address] [place] [address] Phone Care Team Providers Care Kaiwhakahaere Name Role Phone Jose Martin Gray MD Primary Care Provider [phone] Allergies Active Allergy Reactions Criticality Noted Date [...] - 09/05/2024 11:59 PM EDT Hospital Encounter [facility] Xray [address] [place] [phone] Dysphagia, unspecified type Discharge Disposition: Home or Self Care 09/05/2024 Telephone Gastroenterology - [address] [phone] Corazon Rogers MA Results 09/03/2024 Telephone Gastroenterology - [address] [phone] Saeed Murphy MD 08/12/2024 Telephone Gastroenterology - 299 [address] [facility] [address] [place] [address] oCrazon Rogers MA Results 08/06/2024 3:00 PM EST Office Visit Gastroenterology - [address] [place] [phone] Saeed Murphy MD H/O gastric bypass (Primary [...] 08/06/2024 2:49 PM EST Plan of Treatment Health Maintenance Due Date Last Done Comments Breast Cancer Screening 1958 Diabetes: Annual Foot Exam 1968 Diabetes: Annual Retina Eye Exam 1968 Pneumococcal Vaccine: 50+ Years (1 of 2 - PCV) 1977 Zoster Vaccines (1 of 2) 2008 RSV Immunization Adult Patients (1 - Risk 60-74 years 1-dose series) 2018 Cholesterol Screening (Lipid Panel) 06/04/2024 Colorectal Cancer Screening: Colonoscopy 06/04/2024 Depression Screening 06/04/2024 Falls Risk Assessment 06/04/2024 Hepatitis C Screening 06/04/2024 Medicare Annual Wellness Visit 06/04/2024 Osteoporosis Screening (Bone Density Screening) 06/04/2024 Social Influencers of Health Screening 06/04/2024 Diabetes: Annual Urine Albumin-Creatinine Ratio (uACR) 08/06/2024 Diabetes: Blood Sugar Control Test (HGBA1C) 08/06/2024 COVID-19 Vaccine (8 - Mixed Product risk season) 2024 03/15/2024, 04/27/2022, 07/03/2021, Additional history exists Diabetes: Annual GFR (Glomerular Filtration Rate) 08/06/2025 08/06/2024, 09/16/2020, 01/10/2020, Additional history exists DTaP,Tdap,and Td Vaccines (4 - Td or Tdap) 06/07/2033 06/07/2023, 11/16/2020, 10/04/2000 Influenza Vaccine Completed 03/15/2024, 08/08/2020 HIB Vaccines [...] age to complete this topic Meningococcal B Vaccine Aged Out No l onger eligible based on patient's age to complete [...] Signed Date: 09/05/2024 11:52 ET Workstation ID: [id number] Transcribed By: Self Edit Transcribed Date: 09/05/2024 11:31 ET Resident/PA/PALLET REPAIRER: Allison Morris Narrative 09/05/2024 11:52 AM EDT FINDINGS: Double contrast esophagram performed. COMPARISON: No prior esophagram imaging HISTORY: Patient is a 64-year-old female with history of globus sensation. History of gastric bypass. Child Care Centre Director radiographs: 1 view chest radiograph demonstrates cardiac and mediastinal contours within normal limits. Sternotomy wires are present. Surgical clips are noted in the right upper quadrant consistent with history of cholecystectomy. There is a leadless pacemaker visualized over the left heart. There are posterior 5th and 7th right-sided chronic appearing rib fractures. Cervical fusion hardware is noted. Child Care Centre Director lateral radiograph of the neck demonstrates that [...] history of globus sensation.History of gastric bypass. Child Care Centre Director radiographs: 1 view chest radiograph demonstrates cardiac andmediastinal contours within normal limits. Sternotomy wires are present.Surgical clips are noted in the right upper quadrant consistent withhistory of cholecystectomy. There is a leadless pacemaker visualized overthe left heart. There are posterior 5th and 7th right-sided chronicappearing rib fractures. Cervical fusion hardware is noted. Child Care Centre Director lateralradiograph of the neck demonstrates that the [...] Signed Date: 09/05/2024 11:52 ET Workstation ID: [id number] Transcribed By: Self Edit Transcribed Date: 09/05/2024 11:31 ET Resident/PA/PALLET REPAIRER: Allison Morris Saeed Murphy MD IMG FLUOROSCOPY PROCEDURES Dede l Result * (ABNORMAL) CBC auto differential (08/06/2024 3:31 PM EST) WBC 3.7(L) 4.8 - 10.8 K/mcL LAB HEMETOLOGY METHOD 08/06/2024 4:12 PM [facility] RBC 4.00 3.80 - 4.80 M/mcL LAB HEMETOLOGY METHOD 08/06/2024 4:12 PM [facility] Hemoglobin 11.8 11.5 - 16.0 g/dL LAB HEMETOLOGY METHOD 08/06/2024 4:12 PM [facility] Hematocrit 36.3 35.0 - 47.0 % LAB HEMETOLOGY METHOD 08/06/2024 4:12 PM [facility] MCV 91.2 79.0 - 98.0 FL LAB HEMETOLOGY METHOD 08/06/2024 4:12 PM [facility] MCH 29.6 27.0 - 32.0 pcg LAB HEMETOLOGY METHOD 08/06/2024 4:12 PM [facility] MCHC 32.5 32.0 - 37.0 g/dL LAB HEMETOLOGY METHOD 08/06/2024 4:12 PM [facility] RDW 13.1 11.0 - 15.0 % LAB HEMETOLOGY METHOD 08/06/2024 4:12 PM [facility] Platelets 167 130 - 400 K/mcL LAB HEMETOLOGY METHOD 08/06/2024 4:12 PM [facility] MPV 9.8 7.0 - 11.0 FL LAB HEMETOLOGY METHOD 08/06/2024 4:12 PM [facility] NRBC 0.0 <1.0 % LAB HEMETOLOGY METHOD 08/06/2024 4:12 PM [facility] NRBC Absolute 0.00 <0.10 K/mcL LAB HEMETOLOGY METHOD 08/06/2024 4:12 PM [facility] Neutrophils Relative 67.2 % LAB HEMETOLOGY METHOD 08/06/2024 4:12 PM [facility] Lymphocytes Relative 22.1 % LAB HEMETOLOGY METHOD 08/06/2024 4:12 PM [facility] Monocytes Relative 7.5 % LAB HEMETOLOGY METHOD 08/06/2024 4:12 PM [facility] Eosinophils Relative 2.4 % LAB HEMETOLOGY METHOD 08/06/2024 4:12 PM [facility] Basophils Relative 0.5 % LAB HEMETOLOGY METHOD 08/06/2024 4:12 PM [facility] Immature Granulocytes Relative 0.3 % LAB HEMETOLOGY METHOD 08/06/2024 4:12 PM EST [facility] Neutrophils Absolute 2.49 1.50 - 7.00 K/mcL LAB HEMETOLOGY METHOD 08/06/2024 4:12 PM EST [facility] Lymphocytes Absolute 0.82(L) 1.00 - 5.00 K/mcL LAB HEMETOLOGY METHOD 08/06/2024 4:12 PM EST [facility] Monocytes Absolute 0.28 0.20 - 1.00 K/mcL LAB HEMETOLOGY METHOD 08/06/2024 4:12 PM EST [facility] Eosinophils Absolute 0.09 0.00 - 0.50 K/mcL LAB HEMETOLOGY METHOD 08/06/2024 4:12 PM EST [facility] Basophils Absolute 0.02 0.00 - 0.20 K/mcL LAB HEMETOLOGY METHOD 08/06/2024 4:12 PM EST [facility] Immature Granulocytes Absolute 0.01 0.00 - 0.03 K/mcL LAB HEMETOLOGY METHOD 08/06/2024 4:12 PM EST [facility] Blood Venous blood specimen / Unknown Venipuncture / Unknown 08/06/2024 3:31 PM EST 08/06/2024 3:59 PM EST Saeed Murphy MD LAB BLOOD ORDERABLES Final Resu lt [facility] [address] [place] [address], * Methylmalonic acid, serum (08/06/2024 3:31 PM EST) Methylmalonic Acid 0.26 <0.40 umol/L 08/10/2024 11:22 AM EST [facility] Comment: If applicable, any drug confirmation testing reported here was developed and the performance characteristics determined by [facility]. This confirmation testing has not been cleared or approved by the FDA. The laboratory is regulated under CLIA as qualified to perform high-complexity testing. This test is used for patient testing purposes. It should not be regarded as investigational or for research. Test performed at [facility], [address] , [place], [place] ??[address] ? [phone] Maria Luisa Brady MD, PhD - Sap Trainer Blood Venous blood specimen / Unknown Venipuncture / Unknown 08/06/2024 3:31 PM EST 08/06/2024 3:59 PM EST Saeed Murphy MD LAB BLOOD ORDERABLES Final Resu lt Performing Organization Address [facility]/ZIP Co de Phone Number [facility] [address] [place] [place] [address] * Iron and TIBC (08/06/2024 3:31 PM EST) Iron 54 40 - 150 mcg/dL LAB CHEMISTRY METHOD 08/06/2024 4:44 PM EST [facility] TIBC 278 250 - 450 mcg/dL LAB CHEMISTRY METHOD 08/06/2024 4:44 PM EST [facility] Iron Saturation 19 15 - 50 % LAB CHEMISTRY METHOD 08/06/2024 4:44 PM EST [facility] Blood Venous blood specimen / Unknown Venipuncture / Unknown 08/06/2024 3:31 PM EST 08/06/2024 3:59 PM EST Saeed Murphy MD LAB BLOOD ORDERABLES Final Resu lt Performing Organization Address City/[facility]/ZIP Co de Phone Number [facility] [address] [place] [address], * Copper, serum (08/06/2024 3:31 PM EST) Copper 1474 810 - 1990 ug/L 08/09/2024 3:19 PM EST [facility] Comment: Copper values may be elevated to twice the normal levels in . Elevated results may be due to sample collected in a non-certified trace element-free tube. This test was developed and the performance characteristics determined by [facility]. It has not been cleared or approved by the FDA. The laboratory is regulated under CLIA as qualified to perform high-complexity testing. This test is used for patient testing purposes. It should not be regarded as investigational or for research. Test performed at [facility], [address] , [place], [place] ??[address] ? [phone] Maria Luisa Brady MD, PhD - Sap Trainer Blood Venous blood specimen / Unknown Venipuncture / Unknown 08/06/2024 3:31 PM EST 08/06/2024 3:59 PM EST us Saeed Murphy MD LAB BLOOD ORDERABLES Final Resu lt [facility] [address] [place] [address] * Ferritin (08/06/2024 3:31 PM EST) Pathologist [facility] Ferritin 163 8 - 252 ng/mL LAB CHEMISTRY METHOD 08/06/2024 4:43 PM EST [facility] Blood Venous blood specimen / Unknown Venipuncture / Unknown 08/06/2024 3:31 PM EST 08/06/2024 3:59 PM EST us Saeed Murphy MD LAB BLOOD ORDERABLES Final Resu lt [facility] [address] [place] [address], * (ABNORMAL) Comprehensive metabolic panel (08/06/2024 3:31 PM EST) Pathologist [facility] Sodium 139 133 - 145 mmol/L LAB CHEMISTRY METHOD 08/06/2024 4:44 PM EST [facility] Potassium 4.7 3.5 - 5.5 mmol/L LAB CHEMISTRY METHOD 08/06/2024 4:44 PM [facility] Chloride 111(H) 96 - 110 mmol/L LAB CHEMISTRY METHOD 08/06/2024 4:44 PM [facility] CO2 22 21 - 32 mmol/L LAB CHEMISTRY METHOD 08/06/2024 4:44 PM [facility] Anion Gap 6 3 - 11 LAB CHEMISTRY METHOD 08/06/2024 4:44 PM [facility] Glucose 103(H) 70 - 100 mg/dL LAB CHEMISTRY METHOD 08/06/2024 4:44 PM [facility] BUN 26(H) 5 - 25 mg/dL LAB CHEMISTRY METHOD 08/06/2024 4:44 PM [facility] Creatinine 1.07 0.50 - 1.10 mg/dL LAB CHEMISTRY METHOD 08/06/2024 4:44 PM [facility] eGFR 57(L) >=60 mL/min/1. 73m2 LAB CHEMISTRY METHOD 08/06/2024 4:44 PM [facility] Comment:Calculation based on the??Chronic Kidney Disease Epidemiology Collaboration (CKD-EPI) equation refit??without adjustment for race. BUN/Creatinine Ratio 24.3 LAB CHEMISTRY METHOD 08/06/2024 4:44 PM [facility] Calcium 9.2 8.5 - 10.5 mg/dL LAB CHEMISTRY METHOD 08/06/2024 4:44 PM [facility] AST (SGOT) 13 10 - 42 unit/L LAB CHEMISTRY METHOD 08/06/2024 4:44 PM [facility] ALT (SGPT) 22 10 - 60 unit/L LAB CHEMISTRY METHOD 08/06/2024 4:44 PM [facility] Alkaline Phosphatase 157(H) 42 - 121 unit/L LAB CHEMISTRY METHOD 08/06/2024 4:44 PM [facility] Total Protein 6.9 6.0 - 8.0 g/dL LAB CHEMISTRY METHOD 08/06/2024 4:44 PM EST [facility] Albumin 4.0 3.2 - 5.0 g/dL LAB CHEMISTRY METHOD 08/06/2024 4:44 PM EST [facility] Total Bilirubin 0.3 0.0 - 1.4 mg/dL LAB CHEMISTRY METHOD 08/06/2024 4:44 PM EST [facility] Blood Venous blood specimen / Unknown Venipuncture / Unknown 08/06/2024 3:31 PM EST 08/06/2024 3:59 PM EST Saeed Murphy MD LAB BLOOD ORDERABLES Final Resu lt [facility] [address] [place] [address], from Last 3 Months Insurance [employer] MEDICARE MEDICARE [facility] Care Teams Kaiwhakahaere Relationship Specialty Start Date End Date Jose Martin Gray MD [address] [place] [address] Dr Yuliet [place] PCP - General Internal Medicine 07/18/24
== END 2024-10-24 16:00 | disposition home or self-care (01) ==
LOC: HO.HMCHD 15:29
PROVIDERS: PCP Internal Medicine; Visit Provider Internal Medicine
DX: F33.41 Major depressive disorder, recurrent, in partial remission (principal); E11.65 Type 2 diabetes mellitus with hyperglycemia; F41.9 Anxiety disorder, unspecified; S06.5XAA Traumatic subdural hemorrhage with loss of consciousness status unknown, initial encounter; Z86.73 Personal history of transient ischemic attack (TIA), and cerebral infarction without residual deficits

== ENCOUNTER → 2024-10-24 15:28 | Outpatient (BNVA) | payer MEDICARE, OTHER, SELFPAY | PROVIDERS: PCP Internal Medicine; Visit Provider Internal Medicine | DX: F33.41 Major depressive disorder, recurrent, in partial remission (principal); E11.65 Type 2 diabetes mellitus with hyperglycemia; F41.9 Anxiety disorder, unspecified; S06.5XAD Traumatic subdural hemorrhage with loss of consciousness status unknown, subsequent encounter; E03.9 Hypothyroidism, unspecified; Z86.73 Personal history of transient ischemic attack (TIA), and cerebral infarction without residual deficits; Z79.899 Other long term (current) drug therapy | CPT/HCPCS: 96127; 99202 ==

== ENCOUNTER 2024-11-11 15:59 | Outpatient (REF) | payer MEDICARE, OTHER, SELFPAY ==
--- OUTSIDE RECORDS SUMMARY | 2024-11-11 16:02 | XMS_ITS | Clinical Summary ---
Author Organization [facility] 299 [facility] Address [address] [place] [address] Phone Care Team Providers Care Respiratory Therapist Assistant Name Role Phone Jose Martin Gray MD Primary Care Provider [phone] Allergies Active Allergy Reactions Criticality Noted Date [...] Encounters Date Type Department Care Team Description 10/29/2024 Telephone Gastroenterology - [address] [phone] Zeina Robertson MA 09/05/2024 9:12 AM EDT - 09/05/2024 11:59 PM EDT Hospital Encounter [facility] Xray [address] [place] [phone] Dysphagia, unspecified type Discharge Disposition: Home or Self Care 09/05/2024 Telephone Gastroenterology - [address] [phone] Corazon Rogers MA Results 09/03/2024 Telephone Gastroenterology - 299 [facility] 299 [facility] [address] [place] [phone] Saeed Murphy MD from Last 3 Months Immunizations Name Administration [...] Care Team (Late st Contact Info) Description 01/02/2025 10:00 AM EDT Appointment [facility] Endoscopy [address] [place] [phone] Reyna Flaherty MD [address] [address] Health Maintenance Due Date Last Done Comments [...] 09/05/2024 9:39 AM EDT Dysphagia, unspecified type COMPREHENSIVE METABOLIC PANEL Routine 08/06/2024 3:31 PM EST Bariatric surgery status from Last 3 Months or Most Recently Relevant to Health Maintenance Results * XR Esophagram (09/05/2024 9:39 AM [...] Signed Date: 09/05/2024 11:52 ET Workstation ID: [id number] Transcribed By: Self Edit Transcribed Date: 09/05/2024 11:31 ET Resident/PA/WAFER PRODUCTION LEAD WORKER: Allison Morris Narrative 09/05/2024 11:52 AM EDT FINDINGS: Double contrast esophagram performed. COMPARISON: No prior esophagram imaging HISTORY: Patient is a 64-year-old female with history of globus sensation. History of gastric bypass. Blade Grinder radiographs: 1 view chest radiograph demonstrates cardiac and mediastinal contours within normal limits. Sternotomy wires are present. Surgical clips are noted in the right upper quadrant consistent with history of cholecystectomy. There is a leadless pacemaker visualized over the left heart. There are posterior 5th and 7th right-sided chronic appearing rib fractures. Cervical fusion hardware is noted. Blade Grinder lateral radiograph of the neck demonstrates that [...] history of globus sensation.History of gastric bypass. Blade Grinder radiographs: 1 view chest radiograph demonstrates cardiac andmediastinal contours within normal limits. Sternotomy wires are present.Surgical clips are noted in the right upper quadrant consistent withhistory of cholecystectomy. There is a leadless pacemaker visualized overthe left heart. There are posterior 5th and 7th right-sided chronicappearing rib fractures. Cervical fusion hardware is noted. Blade Grinder lateralradiograph of the neck demonstrates that the [...] Signed Date: 09/05/2024 11:52 ET Workstation ID: [id number] Transcribed By: Self Edit Transcribed Date: 09/05/2024 11:31 ET Resident/PA/WAFER PRODUCTION LEAD WORKER: Allison Morris Saeed Murphy MD IMG FLUOROSCOPY PROCEDURES Dede l Result * (ABNORMAL) Comprehensive metabolic panel (08/06/2024 3:31 PM EST) Sodium 139 133 - 145 mmol/L LAB CHEMISTRY METHOD 08/06/2024 4:44 PM [facility] Potassium 4.7 3.5 - 5.5 mmol/L LAB CHEMISTRY METHOD 08/06/2024 4:44 PM [facility] Chloride 111(H) 96 - 110 mmol/L LAB CHEMISTRY METHOD 08/06/2024 4:44 PM [facility] CO2 22 21 - 32 mmol/L LAB CHEMISTRY METHOD 08/06/2024 4:44 PM [facility] Anion Gap 6 3 - 11 LAB CHEMISTRY METHOD 08/06/2024 4:44 PM [facility] Glucose 103(H) 70 - 100 mg/dL LAB CHEMISTRY METHOD 08/06/2024 4:44 PM [facility] BUN 26(H) 5 - 25 mg/dL LAB CHEMISTRY METHOD 08/06/2024 4:44 PM [facility] Creatinine 1.07 0.50 - 1.10 mg/dL LAB CHEMISTRY METHOD 08/06/2024 4:44 PM [facility] eGFR 57(L) >=60 mL/min/1. 73m2 LAB CHEMISTRY METHOD 08/06/2024 4:44 PM [facility] Comment:Calculation based on the??Chronic Kidney Disease Epidemiology Collaboration (CKD-EPI) equation refit??without adjustment for race. BUN/Creatinine Ratio 24.3 LAB CHEMISTRY METHOD 08/06/2024 4:44 PM [facility] Calcium 9.2 8.5 - 10.5 mg/dL LAB CHEMISTRY METHOD 08/06/2024 4:44 PM [facility] AST (SGOT) 13 10 - 42 unit/L LAB CHEMISTRY METHOD 08/06/2024 4:44 PM [facility] ALT (SGPT) 22 10 - 60 unit/L LAB CHEMISTRY METHOD 08/06/2024 4:44 PM [facility] Alkaline Phosphatase 157(H) 42 - 121 unit/L LAB CHEMISTRY METHOD 08/06/2024 4:44 PM [facility] Total Protein 6.9 6.0 - 8.0 g/dL LAB CHEMISTRY METHOD 08/06/2024 4:44 PM [facility] Albumin 4.0 3.2 - 5.0 g/dL LAB CHEMISTRY METHOD 08/06/2024 4:44 PM [facility] Total Bilirubin 0.3 0.0 - 1.4 mg/dL LAB CHEMISTRY METHOD 08/06/2024 4:44 PM [facility] Blood Venous blood specimen / Unknown Venipuncture / Unknown 08/06/2024 3:31 PM EST 08/06/2024 3:59 PM EST Saeed Murphy MD LAB BLOOD ORDERABLES Final Resu lt [facility] [address] [place] [address], from Last 3 Months or Most Recently Relevant to Health Maintenance Insurance [employer] MEDICARE MEDICARE [facility] Care Teams Respiratory Therapist Assistant Relationship Specialty Start Date End Date Jose Martin Gray MD [address] [place] [address] Dr Yuliet [place] PCP - General Internal Medicine 07/18/24
[2024-11-11 16:17] LABS: MANUAL DIFF FLAG NO
[2024-11-11 17:23] LABS: Basophils Percent Auto 0.5 % (0-2); Eosinophils Absolute Auto 0.2 X10*3/uL (0.0-0.4); Eosinophils Percent Auto 3.6 % (0-4); Estimated Average Glucose 160 mg/dL; Hematocrit 35.1 % (37.0-47.0); Hemoglobin 11.3 g/dl (12.0-16.0); Hemoglobin A1C 159.8313 umol/L; Hemoglobin A1c % 7.2 % (<6.0); Imm Gran Abs Auto 0.02 X10*3/uL (0.00-0.03); Imm Gran Pct Auto 0.5 % (0.0-0.4); Lymphocytes Absolute Auto 0.9 X10*3/uL (1.2-4.9); Lymphocytes Percent Auto 21.4 % (20-40); Mean Corpuscular HGB Conc 32.2 g/dl (31.0-35.0); Mean Corpuscular Hemoglobin 29.9 pg (27.0-33.0); Mean Corpuscular Volume 92.9 fL (80.0-98.0); Mean Platelet Volume 9.6 fL (9.4-12.3); Monocytes Absolute Auto 0.4 X10*3/uL (0.1-1.2); Monocytes Percent Auto 8.6 % (2-11); Neutrophils Absolute Auto 2.8 x10*3/uL (2.0-8.3); Neutrophils Percent Auto 65.4 % (45-73); Platelet Count 205 X10*3/uL (160-400); Red Blood Count 3.78 X10*6/uL (4.20-5.50); Red Cell Distribution Width 13.5 % (11.0-16.0); Total Hemoglobin (HGBA1C) 2918.6306 umol/L; White Blood Count 4.2 X10*3/uL (4.8-10.8)
[2024-11-11 17:59] LABS: Alanine Aminotransferase 15 U/L (0-31); Albumin Level 4.1 g/dL (3.5-5.0); Alkaline Phosphatase 140 U/L (39-117); Anion Gap 11 (12-20); Aspartate Amino Transferase 18 U/L (5-31); Bilirubin Total 0.3 mg/dL (0.0-1.0); Blood Urea Nitrogen 22 mg/dL (9-16); Calcium 8.9 mg/dL (8.4-10.2); Carbon Dioxide 21 mmol/L (22-29); Chloride 112 mmol/L (96-108); Estimated Glomerular Filt Rate > 60; Glucose Random 109 mg/dL (60-115); Iron 55 mcg/dL (30-160); Percent Iron Saturation 23 % (15-50); Potassium 4.1 mmol/L (3.3-5.1); Sodium 140 mmol/L (135-145); Total Iron Binding Capacity 237 mcg/dL (228-428); Total Protein 6.9 g/dL (6.5-8.0); Unsaturated Iron Binding 182 ug/dL
[2024-11-11 18:04] LABS: Ferritin 229 ng/mL (10-250); TSH reflex Free T4 0.49 uIU/mL (0.32-4.0)
[2024-11-11 18:25] LABS: Folate > 20.0 ng/mL (> or = 4.0); Vitamin B12 > 2000 pg/mL (200-900)
[2024-11-13 13:53] LABS: A. Phagocytphilium DNA,RT-PCR NOT DETECTED (NOT DETECTED); Babesia Microti DNA, RT-PCR NOT DETECTED (NOT DETECTED); Borrelia Miyamotoi,DNA RT-PCR NOT DETECTED (NOT DETECTED); E.Chaffeensis DNA RT-PCR NOT DETECTED (NOT DETECTED); Lyme(Borrelia ssp)DNA RT-PCR NOT DETECTED (NOT DETECTED)
== END 2024-11-11 16:00 | disposition home or self-care (01) ==
LOC: HO.LAB 15:59
PROVIDERS: PCP Internal Medicine; Visit Provider Internal Medicine
DX: E11.9 Type 2 diabetes mellitus without complications (principal); F32.9 Major depressive disorder, single episode, unspecified; F43.10 Post-traumatic stress disorder, unspecified; F41.9 Anxiety disorder, unspecified; T14.8XXA Other injury of unspecified body region, initial encounter
CPT/HCPCS: 36415; 80053; 82607; 82728; 82746; 83036; 83540; 84443; 85025; 87468; 87469; 87478; 87484; 87798

== ENCOUNTER 2025-01-01 09:12 | Outpatient (AMB) | payer MEDICARE, OTHER, SELFPAY ==
--- NOTE | 2025-01-01 09:13 | A.OFFPC_ITS ---
Vital Signs 01/01/25 09:23 Height 5 ft 4 in Weight 83.007 kg BMI 31.4 BP 118/64 Blood Pressure Location Lt brachial Position Sitting Respiration 18 Pulse 100 Pulse Source Pulse Oximeter Temp 98.6 F Temp Source Temporal Artery Scan Pulse Oximetry (%) 96 Oxygen Delivery Method Room Air Intake Visit Reasons: rash and diarrhea/upcoming colonoscopy Manager Cosmetics Required: No Accompanied by: Self / Same As Patient Allergies codeine (Codeine) Allergy (Severe, Verified 01/01/25 09:13) Anaphylaxis acetaminophen (Percocet) Allergy (Unknown, Verified 01/01/25 09:13) Unknown tramadol (TRAMADOL) Adverse Reaction (Severe, Verified 01/01/25 09:13) diarrhea/incoherence hydromorphone (Dilaudid) Adverse Reaction (Unknown, Verified 01/01/25 09:13) Hallucinations oxycodone (From Percocet) Adverse Reaction (Unknown, Verified 01/01/25 09:13) Vomiting Medication List - Last Reconciled 01/01/25 by MARY ELLEN Boyd albuterol sulfate 90 mcg/actuation 2 puffs inhalation Q4H PRN atorvastatin 10 mg PO DAILY empagliflozin (Jardiance) 10 mg PO DAILY folic acid 1 mg PO QAM glipizide ER 10 mg PO BID ibuprofen 600 mg PO Q6H PRN ketoconazole 2% 1 appl topical BID lamotrigine 100 mg PO BID levothyroxine 100 mcg PO DAILY methotrexate sodium 15 mg PO QWEEK pantoprazole 40 mg PO DAILY perfluorohexyloctane (PF) 100% (Miebo (PF)) drps ophthalmic (eye) prazosin 1 mg PO BEDTIME prednisone 10 mg PO DIRECTED quetiapine 300 mg PO BEDTIME quetiapine 100 mg PO TID PRN tizanidine 2 - 4 mg PO TID PRN topiramate 100 mg PO BID venlafaxine ER 150 mg PO BID venlafaxine ER 75 mg PO .at night zafirlukast 20 mg PO BID Tobacco use date assessed: 10/24/24 Dental Screening Dental Screen Date: 10/24/24 HPI HPI Comments History of Present Illness Details 64 year old female with past medical his tory of CVA 2014, 2022, bipolar disorder, DM, asthma, presenting for evaluation of a rash that started 4 days ago. She is unsure of any new contacts but does not believe there have been any. No new medications. No known allergies other than narcotics and tylenol non of which she ingested. She does report the nigh before rash eruption she ate lobster and clams but states she has had these before without any adverse effects. No insect bites except for a tick bite 11/10. Tick panel was checked at that time but the day after bite. She has large patches on extremities, back, abd, under L breast. She had a lesion on her face which resolved but reports there is still pruritus. Endorses fatigue as well. No other associated symptoms. ROS: General: No fevers, malaise, unintentional weight loss. see hpi HEENT: No blurred vision, diplopia. No sore throat, nasal congestion, rhinorrhea, sinus pain, ear pain Cardiovascular: No chest pain, palpitations, or leg edema Respiratory: No shortness of breath, wheezing, cough GI: No abdominal pain, nausea, vomiting, diarrhea, constipation, melena, hematochezia : No dysuria, hematuria, increased urinary frequency, decreased urinary output MSK: No myalgia, back pain Neuro: No headaches, weakness, paresthesias Skin: see hpi EXAM: Constitutional - Awake and Alert, No apparent distress Eyes - PERRL Cardiovascular - S1S2, RRR, No edema Respiratory - Normal lung expansion, Normal respiratory effort, No respiratory distress, CTA bilaterally Extremities - no calf tenderness bilaterally, no swelling Skin - Warm/Dry. Large oblong faint erythematous patches (largest about 15 cm by 8cm) on L upper chest, several patches under left breast and abdomen. No consistent bull's-eye Neurological - Alert & oriented x3 Psychological - Appropriate affect [facility] Medical History (Updated 01/01/25 @ 09:42 by MARY ELLEN Boyd) Rash Anxiety PTSD (post-traumatic stress disorder) Depression Diabetes Family History Mother No problems noted. Father No problems noted. Social History Housing: House Alcohol intake: current Alcohol intake frequency: holidays/special occasions only Patient Tobacco Use Status: Former Tobacco user service: No Current occupational status: retired Cognitive needs: Yes (cane) Hearing needs: Yes (b/l hearing aids) Vision needs: Yes (rx glasses) Questionnaire PHQ-9 Over the last 2 weeks, how often have you been bothered by any of the following problems? 1. Little interest or pleasure in doing things: not at all 2. Feeling down, depressed, or hopeless: not at all 3. Trouble falling or staying asleep, or sleeping too much: several days 4. Feeling tired or having little energy: nearly every day 5. Poor appetite or overeating: several days 6. Feeling bad about yourself - or that you are a failure or have let yourself or your family down: not at all 7. Trouble concentrating on things, such as reading the newspaper or watching television: not at all 8. Moving or speaking so slowly that other people could have noticed. Or the opposite - being so fidgety or restless that you have been moving around a lot more than usual: not at all 9. Thoughts that you would be better off or of hurting yourself in some way: not at all Total score: 5 Source: Developed by Drs. Yariel De La Rosa, Tammi Romero, Emir Zaman and colleagues, with an educational christiane from [employer]. Thrive Questionnaire Date Thrive assessed: 01/01/25 I am a: Patient What is your living situation today?: I have a steady place to live Within the past 12 months, did the food you bought not last and you didn't have the money to get more?: Never true Within the past 12 months, did you worry whether your food would run out before you got money to buy more?: Never true Do you have trouble paying for medicines?: No Do you have trouble getting transportation to medical appointments?: No Do you have trouble paying your heating and electricity bill?: No Do you have trouble taking care of your child, family member or friend?: No Do you have trouble with day-to-day activities such as bathing, preparing meals, shopping, managing finances, etc.?: No Are you currently unemployed and looking for a job?: No Are you interested in more education?: No THRIVE Score: 0 MARIE-7 AMB Questionnaire MARIE-7 Date MARIE - 7 assessed: 07/09/25 Feeling nervous, anxious, or on edge: 1 = Several days Not being able to stop or control worryin = Not at all Worrying too much about different things: 1 = Several days Trouble relaxin = Not at all Being so restless that it is hard to sit still: 0 = Not at all Becoming easily annoyed or irritable: 1 = Several days Feeling afraid as if something awful might happen: 1 = Several days Total MARIE-7 score (0-4 normal; 5-9 mild; 10-14 moderate; 15-21 severe): 4 Source: Developed by Drs. Yariel De La Rosa, Tammi Romero, Emir Zaman and colleagues, with an educational christiane from [employer]. Physical exam (Primary Care) Vital Signs: Last Vital Signs Temp 98.6 F 01/01/25 09:23 Pulse 100 01/01/25 09:23 Resp 18 01/01/25 09:23 BP 118/64 01/01/25 09:23 Pulse Ox 96 01/01/25 09:23 Oxygen Delivery Method Room Air 01/01/25 09:23 BMI result Body Mass Index 31.4 Tobacco/Smoking Status: Tobacco use Status Tobacco use date assessed 10/24/24 01/01/25 09:26 Patient Tobacco Use Status Former Tobacco user 01/01/25 09:26 PHQ-9: PHQ-9 Score PHQ-9: Total score 5 01/01/25 09:52 Thrive Assessment: Date of Thrive Assessment Date Thrive assessed 01/01/25 01/01/25 09:52 Coding Level of Care Code Est Pt Level 4 (12074) Complex EM visit Add On G2211 Diagnoses Rash R21 Assessment & Plan Assessment & Plan (1) Rash: Code(s): R21 - Rash and other nonspecific skin eruption Category: Medical Plan: Rash with unknown etiology. Given history could be allergic in nature though not consistent with urticaria and also with delayed onset with persist. Less likely irritant/contact. Possibly tickborne with a fading erythema migrans but no definite bulls eye. Has history of autoimmune conditions, but again seems less likely given rash appearance. Will check cbc, lyme igm/igg, tick panel molecular, bmp, inflammatory markers. Trial prednisone taper. Counseled on dosing and sode effects. Plan Follow up as scheduled next month. Labs to be compelted today Orders: Orders Liver Panel Today R21 - Rash and other nonspecific skin eruption C Reactive Protein Today R21 - Rash and other nonspecific skin eruption Erythrocyte Sedimentation Rate Today R21 - Rash and other nonspecific skin eruption Tick-borne Disease Molecular Today R21 - Rash and other nonspecific skin eruption Basic Metabolic Panel Today R21 - Rash and other nonspecific skin eruption Complete Blood Count Auto Diff Today R21 - Rash and other nonspecific skin eruption Lyme IgG/IgM w/reflex to WB Today R21 - Rash and other nonspecific skin eruption Medications: New topiramate 100 mg PO BID 180 tabs 1RF prednisone see taper instructions; 40 mg Daily x3 days, 30 mg daily x3 days, 20 mg daily x3 days, 10 mg daily x3 days 10 mg PO DIRECTED 30 tabs 0RF
[2025-01-01 09:23] VITALS: BP 118/64; PULSE 100; RESP 18; TEMP 37; O2SAT 96; BMI 31.4
--- OUTSIDE RECORDS SUMMARY | 2025-01-01 09:29 | XMS_ITS | Clinical Summary ---
Author Organization [address] Address [address] [place] [address] Phone Care Team Providers Care Laborer General Name Role Phone Jose Martin Gray MD Primary Care Provider [phone] Allergies Active Allergy Reactions Criticality Noted Date Comments Codeine Anaphylaxis High 08/06/2024 Hydromorphone Unknown 11/13/2018 Other Reaction(s): Confusion/delirium, Other Reaction(s): Confusion/delirium Other Reaction(s): Confusion/delirium Oxycodone-Acetaminophen Nausea Only 10/10/2013 Level of certainty: Very Certain Tramadol Other 10/10/2013 Level of certainty: Moderately Certain; Other Reaction(s): Confusion/delirium Level of certainty: Moderately Certain Other Reaction(s): Confusion/delirium Medications bisacodyL (DULCOLAX) 5 mg EC tablet Take 2 tablets by mouth right before beginning bowel prep. See instructions provided by the office 2 tablet 5 Active polyethylene glycol (Golytely) 236-22.74-6.74 -5.86 gram solution Take 4L by mouth once for one dose. May substitue any PEG. Starting at 6PM the night before your procedure drink 1 8oz glasses at your own pace until you complete half of the gallon. Finish 2nd half of the gallon 5 hours before your procedure. 4000 mL 5 Active Active Problems Problem Noted Date Diagnosed Date Other dysphagia 08/06/2024 Personal hx of gastric bypass 05/30/2024 Gastroesophageal reflux disease without esophagi tis 05/30/2024 Irritable bowel syndrome wit h both constipation and diarrhea 05/30/2024 Encounters Date Type Department Care Team Description 10/29/2024 Telephone Gastroenterology - [address] [phone] Zeina Robertson MA from Last 3 Months Immunizations Name Administration [...] Contact Info) Description 01/02/2025 10:00 AM EDT Hospital Encounter [facility] Endoscopy [address] [place] [phone] Reyna Flaherty MD [address] [id number] Health Maintenance Due Date Last Done Comments [...] 2024 03/15/2024, 04/27/2022, 07/03/2021, Additional history exists Influenza Vaccine (#1) 2025 03/15/2024, 2020 Diabetes: Annual GFR (Glomerular Filtration Rate) 08/06/2025 08/06/2024, 09/16/2020, 01/10/2020, Additional history exists DTaP,Tdap,and Td Vaccines (4 - Td or Tdap) 06/07/2033 06/07/2023, 11/16/2020, 10/04/2000 HIB Vaccines Aged Out No longer eligi [...] Procedure Name Priority Date/Time Associated Diagnosis Comments COMPREHENSIVE METABOLIC PANEL Routine 08/06/2024 3:31 PM EST Bariatric surgery status from Last 3 Months or Most Recently Relevant to Health Maintenance Results * (ABNORMAL) Comprehensive metabolic panel (08/06/2024 3:31 PM EST) Sodium 139 133 - 145 mmol/L LAB CHEMISTRY METHOD 08/06/2024 4:44 PM [facility] Potassium 4.7 3.5 - 5.5 mmol/L LAB CHEMISTRY METHOD 08/06/2024 4:44 PM [facility] Chloride 111(H) 96 - 110 mmol/L LAB CHEMISTRY METHOD 08/06/2024 4:44 PM [facility] CO2 22 21 - 32 mmol/L LAB CHEMISTRY METHOD 08/06/2024 4:44 PM [facility] Anion Gap 6 3 - 11 LAB CHEMISTRY METHOD 08/06/2024 4:44 PM [facility] Glucose 103(H) 70 - 100 mg/dL LAB CHEMISTRY METHOD 08/06/2024 4:44 PM [facility] BUN 26(H) 5 - 25 mg/dL LAB CHEMISTRY METHOD 08/06/2024 4:44 PM [facility] Creatinine 1.07 0.50 - 1.10 mg/dL LAB CHEMISTRY METHOD 08/06/2024 4:44 PM [facility] eGFR 57(L) >=60 mL/min/1. 73m2 LAB CHEMISTRY METHOD 08/06/2024 4:44 PM [facility] Comment:Calculation based on the Chronic Kidney Disease Epidemiology Collaboration (CKD-EPI) equation refit without adjustment for race. BUN/Creatinine Ratio 24.3 LAB CHEMISTRY METHOD 08/06/2024 4:44 PM [facility] Calcium 9.2 8.5 - 10.5 mg/dL LAB CHEMISTRY METHOD 08/06/2024 4:44 PM [facility] AST (SGOT) 13 10 - 42 unit/L LAB CHEMISTRY METHOD 08/06/2024 4:44 PM [facility] ALT (SGPT) 22 10 - 60 unit/L LAB CHEMISTRY METHOD 08/06/2024 4:44 PM [facility] Alkaline Phosphatase 157(H) 42 - 121 unit/L LAB CHEMISTRY METHOD 08/06/2024 4:44 PM EST [facility] Total Protein 6.9 6.0 - 8.0 g/dL LAB CHEMISTRY METHOD 08/06/2024 4:44 PM EST [facility] Albumin 4.0 3.2 - 5.0 g/dL LAB CHEMISTRY METHOD 08/06/2024 4:44 PM EST [facility] Total Bilirubin 0.3 0.0 - 1.4 mg/dL LAB CHEMISTRY METHOD 08/06/2024 4:44 PM EST [facility] Blood Venous blood specimen / Unknown Venipuncture / Unknown 08/06/2024 3:31 PM EST 08/06/2024 3:59 PM EST Saeed Murphy MD LAB BLOOD ORDERABLES Final Resu lt [facility] [address] [place] [address], from Last 3 Months or Most Recently Relevant to Health Maintenance Insurance [employer] MEDICARE MEDICARE [facility] Care Teams Laborer General Relationship Specialty Start Date End Date Jose Martin Gray MD [address] [place] [address] Dr Yuliet MA PCP - General Internal Medicine 07/18/24
== END 2025-01-01 09:41 | disposition home or self-care (01) ==
LOC: HO.HMCHD 09:12
PROVIDERS: PCP Internal Medicine; Visit Provider Physician Assistant
DX: R21 Rash and other nonspecific skin eruption (principal)

== ENCOUNTER 2025-01-01 09:12 | Outpatient (REF) | payer MEDICARE, OTHER, SELFPAY ==
[2025-01-01 10:29] LABS: MANUAL DIFF FLAG NO
[2025-01-01 10:53] LABS: Hematocrit 33.4 % (37.0-47.0); Hemoglobin 10.9 g/dl (12.0-16.0); Imm Gran Abs Auto 0.03 X10*3/uL (0.00-0.03); Imm Gran Pct Auto 0.5 % (0.0-0.4); Lymphocytes Absolute Auto 0.5 X10*3/uL (1.2-4.9); Mean Corpuscular HGB Conc 32.6 g/dl (31.0-35.0); Mean Corpuscular Hemoglobin 28.8 pg (27.0-33.0); Mean Corpuscular Volume 88.4 fL (80.0-98.0); NRBC Abs Auto 0.000 X10*3/uL (0.0-0.012); NRBC Pct Auto 0.0 /100WBC (0.0-0.2); Platelet Count 269 X10*3/uL (160-400); Red Blood Count 3.78 X10*6/uL (4.20-5.50); White Blood Count 6.2 X10*3/uL (4.8-10.8)
[2025-01-01 11:22] LABS: Alanine Aminotransferase 45 U/L (0-31); Albumin Level 3.7 g/dL (3.5-5.0); Alkaline Phosphatase 331 U/L (39-117); Anion Gap 12 (12-20); Aspartate Amino Transferase 32 U/L (5-31); Blood Urea Nitrogen 15 mg/dL (9-16); Calcium 9.0 mg/dL (8.4-10.2); Carbon Dioxide 20 mmol/L (22-29); Chloride 112 mmol/L (96-108); Estimated Glomerular Filt Rate 58; Potassium 4.3 mmol/L (3.3-5.1); Sodium 140 mmol/L (135-145); Total Protein 7.0 g/dL (6.5-8.0)
[2025-01-02 13:44] LABS: Lyme Blot 7.61 index
[2025-01-02 23:54] LABS: A. Phagocytphilium DNA,RT-PCR NOT DETECTED (NOT DETECTED); Babesia Microti DNA, RT-PCR NOT DETECTED (NOT DETECTED); Borrelia Miyamotoi,DNA RT-PCR NOT DETECTED (NOT DETECTED); E.Chaffeensis DNA RT-PCR NOT DETECTED (NOT DETECTED); Lyme(Borrelia ssp)DNA RT-PCR DETECTED (NOT DETECTED)
[2025-01-03 09:09] LABS: Lyme Abs Screen POSITIVE
[2025-01-07 20:24] LABS: 39KD (IgG) Band REACTIVE; 41KD (IgG) Band REACTIVE; Lyme IgG Blot Interp NEGATIVE (NEGATIVE); Lyme IgM Blot Interp POSITIVE (NEGATIVE)
== END 2025-01-01 09:13 | disposition home or self-care (01) ==
LOC: HO.LAB 09:12
PROVIDERS: Absent Provider Physician Assistant; PCP Internal Medicine; Visit Provider Physician Assistant
DX: R21 Rash and other nonspecific skin eruption (principal); R19.7 Diarrhea, unspecified; Z86.73 Personal history of transient ischemic attack (TIA), and cerebral infarction without residual deficits; E11.9 Type 2 diabetes mellitus without complications; J45.909 Unspecified asthma, uncomplicated; S30.860A Insect bite (nonvenomous) of lower back and pelvis, initial encounter; W57.XXXA Bitten or stung by nonvenomous insect and other nonvenomous arthropods, initial encounter; Y93.9 Activity, unspecified; Y92.9 Unspecified place or not applicable; Y99.9 Unspecified external cause status
CPT/HCPCS: 36415; 80048; 80076; 85025; 85652; 86140; 86617; 86618; 87468; 87469; 87478; 87484; 87798; 96127; 99212

== ENCOUNTER 2025-02-20 09:55 | Outpatient (AMB) | payer MEDICARE, OTHER, SELFPAY ==
[2025-02-20 09:42] VITALS: BP 122/74; PULSE 85; TEMP 36.2; O2SAT 98; BMI 32.1
--- NOTE | 2025-02-20 09:42 | A.OFFPC_ITS ---
Vital Signs 02/20/25 09:42 Height 5 ft 4 in Weight 187 lb BMI 32.1 BP 122/74 Blood Pressure Location Lt brachial Position Sitting Pulse 85 Pulse Source Pulse Oximeter Temp 97.1 F Temp Source Temporal Artery Scan Pulse Oximetry (%) 98 Oxygen Delivery Method Room Air Intake Visit Reasons: 3 Month F/U Muck Operator Required: No Accompanied by: Self / Same As Patient Allergies codeine (Codeine) Allergy (Severe, Verified 02/20/25 09:43) Anaphylaxis acetaminophen (Percocet) Allergy (Unknown, Verified 02/20/25 09:43) Unknown tramadol (TRAMADOL) Adverse Reaction (Severe, Verified 02/20/25 09:43) diarrhea/incoherence hydromorphone (Dilaudid) Adverse Reaction (Unknown, Verified 02/20/25 09:43) Hallucinations oxycodone (From Percocet) Adverse Reaction (Unknown, Verified 02/20/25 09:43) Vomiting Tobacco use date assessed: 02/20/25 Fall risk assessment: No Falls in past year Last assessed Fall Risk: 02/20/25 Dental Screening Dental Screen Date: 02/20/25 Did you have a dental visit in the last 12 months?: No Did you have a dental problem in the last 6 months where you did not have access to dental care?: No HPI HPI Comments History of Present Illness Details The patient is a 64 year old female with past medical history of CVA 2014, 2022, bipolar disorder, DM, asthma, presenting for follow up Treated in December for Lyme after being evaluated for rash-she was treated. Neuro: No interval issues. She was hospitalized at [facility] from 10/12-10/15/24. She had been seen prior in [place] after falling. She was noted to have worsening subdural hematomas and was hospitalized for frequent neuro checks. She was released on 10/15. Seen again in the ER on 10/20/24 for nausea, reimaged and the bleeding was improving. Saw NS thereafter GI: Saw Dr Murphy for GI consultation. Tells me colonoscopy is planned DM: on jardiance 10, glipizide 10 bid. Due for A1C. Follows with rheumatology. DXA osteoporosis. They are considering prolia for treatment Sees Dr Hamm -Mammradha last year Colonoscopy: 2019 (poor prep) ROS CONSTITUTIONAL: Denies weight loss, fever and chills. HEENT: Denies changes in vision and hearing. RESPIRATORY: Denies SOB and cough. CV: Denies palpitations and CP GI: Denies abdominal pain, nausea, vomiting and diarrhea. : Urinary incontinence, denies dysuria. Some urgency MSK: Denies new myalgia and joint pain. SKIN: Denies rash and pruritus. NEUROLOGICAL: Denies headache PSYCHIATRIC: Denies recent changes in mood. PHYSICAL EXAM: GENERAL: Alert and oriented x 3. NAD EYES: EOMI. Anicteric. HENT: Moist mucous membranes. No scleral icterus. No cervical lymphadenopathy. LUNGS: Clear to auscultation bilaterally. CARDIOVASCULAR: Regular rate and rhythm. No murmur. No JVD. ABDOMEN: Soft, non-tender +bs EXTREMITIES: No edema. Non-tender. SKIN: No rashes or lesions. Warm. NEUROLOGIC: No focal neurological deficits. CN II-XII grossly intact PSYCHIATRIC: Cooperative. Appropriate mood and affect [facility] Medical History Disseminated Lyme disease Rash Anxiety PTSD (post-traumatic stress disorder) Depression Diabetes Family History Mother No problems noted. Father No problems noted. Social History Housing: House Alcohol intake: current Alcohol intake frequency: holidays/special occasions only Patient Tobacco Use Status: Former Tobacco user e-Cigarette/Vaping Use: Former Use service: No Current occupational status: retired Cognitive needs: Yes (cane) Hearing needs: Yes (b/l hearing aids) Vision needs: Yes (rx glasses) Questionnaire PHQ-9 Over the last 2 weeks, how often have you been bothered by any of the following problems? 1. Little interest or pleasure in doing things: not at all 2. Feeling down, depressed, or hopeless: not at all 3. Trouble falling or staying asleep, or sleeping too much: not at all 4. Feeling tired or having little energy: not at all 5. Poor appetite or overeating: not at all 6. Feeling bad about yourself - or that you are a failure or have let yourself or your family down: not at all 7. Trouble concentrating on things, such as reading the newspaper or watching television: not at all 8. Moving or speaking so slowly that other people could have noticed. Or the opposite - being so fidgety or restless that you have been moving around a lot more than usual: not at all 9. Thoughts that you would be better off or of hurting yourself in some way: not at all Total score: 0 Depression Screening Interpretation: Negative Depression Screening Done: Yes 02138 - PHQ-9 Billing: Yes Source: Developed by Drs. Yariel De La Rosa, Tammi Romero, Emir Zaman and colleagues, with an educational christiane from [employer]. Thrive Questionnaire Date Thrive assessed: 02/20/25 I am a: Patient Within the past 12 months, did the food you bought not last and you didn't have the money to get more?: Never true Within the past 12 months, did you worry whether your food would run out before you got money to buy more?: Never true Do you have trouble paying for medicines?: No Do you have trouble getting transportation to medical appointments?: No Do you have trouble paying your heating and electricity bill?: No Do you have trouble taking care of your child, family member or friend?: No Do you have trouble with day-to-day activities such as bathing, preparing meals, shopping, managing finances, etc.?: No Are you currently unemployed and looking for a job?: No Are you interested in more education?: No THRIVE Score: 0 AUDIT C Alcohol Use Questionnaire (AUDIT-C) 1. How often do you have a drink containing alcohol?: Never 3. How often do you have six or more drinks on one occasion?: Never Total Score: 0 MARIE-7 AMB Questionnaire MARIE-7 Date MARIE - 7 assessed: 02/20/25 Feeling nervous, anxious, or on edge: 0 = Not at all Not being able to stop or control worryin = Not at all Worrying too much about different things: 0 = Not at all Trouble relaxin = Not at all Being so restless that it is hard to sit still: 0 = Not at all Becoming easily annoyed or irritable: 0 = Not at all Feeling afraid as if something awful might happen: 0 = Not at all Total MARIE-7 score (0-4 normal; 5-9 mild; 10-14 moderate; 15-21 severe): 0 Source: Developed by Drs. Yariel De La Rosa, Tammi Romero, Emir Zaman and colleagues, with an educational christiane from [employer]. Physical exam (Primary Care) Vital Signs: Last Vital Signs Temp 97.1 F 02/20/25 09:42 Pulse 85 02/20/25 09:42 BP 122/74 02/20/25 09:42 Pulse Ox 98 02/20/25 09:42 Oxygen Delivery Method Room Air 02/20/25 09:42 BMI result Body Mass Index 32.1 Tobacco/Smoking Status: Tobacco use Status Tobacco use date assessed 02/20/25 02/20/25 09:44 Patient Tobacco Use Status Former Tobacco user 02/20/25 09:44 e-Cigarette/Vaping Use Former Use 02/20/25 09:44 PHQ-9: PHQ-9 Score PHQ-9: Total score 0 02/22/25 12:32 Depression Screening Interpretation: Negative Thrive Assessment: Date of Thrive Assessment Date Thrive assessed 02/20/25 02/20/25 09:44 Coding Level of Care Code Est Pt Level 4 (56319) Diagnoses Type 2 diabetes mellitus with hyperglycemia, without long-term current use of insulin E11.65 Diabetes mellitus complication status: with hyperglycemia Diabetes mellitus exterminator helper insulin use: without half-way use Diabetes mellitus type: type 2 Recurrent major depressive disorder, in partial remission F33.41 Active/Remission status: in partial remission Depression Type: major depressive disorder Major depression recurrence: recurrent Additional Codes PHQ-9 - 40423 - PHQ-9 Billing: Yes ([id number]) Assessment & Plan Assessment & Plan (1) Diabetes: Code(s): E11.9 - Type 2 diabetes mellitus without complications Category: Medical Qualifiers: Diabetes mellitus complication status: with hyperglycemia Diabetes mellitus exterminator helper insulin use: without exterminator helper use Diabetes mellitus type: type 2 Qualified Code(s): E11.65 - Type 2 diabetes mellitus with hyperglycemia (2) Depression: Code(s): F32.9 - Major depressive disorder, single episode, unspecified Category: Medical Qualifiers: Active/Remission status: in partial remission Depression Type: major depressive disorder Major depression recurrence: recurrent Qualified Code(s): F33.41 - Major depressive disorder, recurrent, in partial remission Plan 64 year old female presenting for follow up Diabetes-due for A1C. A1C returned elevated -advised to add actos Urine ordered-returned positive for UTI-abx sent Orders: Orders Urine Culture 02/20/25 R32 - Unspecified urinary incontinence UA and rflx microscopic 02/20/25 R32 - Unspecified urinary incontinence Referrals Urogynecology Referral R32 - Unspecified urinary incontinence Medications: Discontinued nitrofurantoin macrocrystal must administer with a meal/food Discontinued Reason: Doctor's Order 100 mg PO BID 14 caps 0RF
--- OUTSIDE RECORDS SUMMARY | 2025-02-20 11:03 | XMS_ITS | Clinical Summary ---
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 07/31/19 18 Active prazosin (MINIPRESS) 1 MG capsule Take 1 mg by mouth nightly at bedtime. 07/30/19 18 Active topiramate 200 mg Cp24 Take 200 mg by mouth daily. 3 07/10/19 18 Active clonazePAM (KLONOPIN) 1 MG tablet Take 1 mg by mouth nightly at bedtime as needed. 3 06/03/20 17 Active cholecalciferol (VITAMIN D3) 5,000 unit tablet Take 5,000 Units by mouth daily. Active multivitamin per tablet as directed Active lamoTRIgine (LAMICTAL) 200 MG IMMEDIATE release tablet 1 tablet at bedtime Active QUEtiapine (SEROQUEL) 300 MG tablet Take 300 mg by mouth daily. 3 06/18/20 17 Active pantoprazole (PROTONIX) 40 MG tablet Take 40 mg by mouth daily. Active cyanocobalamin, vitamin B-12, 250 MCG tabletIndications: unsure strength Take 1,000 mcg by mouth daily. Indications: unsure strength Active ketoconazole 2 % cream APPLY TO AFFECTED AREA TWICE A DAY NEEDED 07/08/19 Active venlafaxine (EFFEXOR-XR) 150 MG 24 hr capsule Take 150 mg by mouth 2 (two) times a day. Active venlafaxine (EFFEXOR) 75 MG tablet Take 75 mg by mouth nightly at bedtime. Active acetaminophen (TYLENOL) 325 mg tablet as needed. 05/10/20 Active ibuprofen (ADVIL,MOTRIN) 600 MG tablet as needed. 05/10/20 Active QUEtiapine (SEROQUEL) 100 MG tabletIndications: 3 tabs prn a day Take by mouth nightly at bedtime. Indications: 3 tabs prn a day Active FML FORTE 0.25 % ophthalmic suspension SHAKE LIQUID AND INSTILL 1 DROP IN RIGHT EYE FOUR TIMES DAILY DIRECTED 08/05/19 Active hydrOXYchloroQUINE (PLAQUENIL) 200 mg tabletIndications: Rheumatoid arthritis involving multiple sites with positive rheumatoid factor,Primary osteoarthritis involving multiple joints,Long-term use of Plaquenil TAKE 1 TABLET BY MOUTH TWICE A DAY 180 tablet 3 10/12/19 Active Additional Information Patient not taking.Reported on 01/06/2025 zafirlukast (ACCOLATE) 20 MG tablet Take 1 tablet (20 mg total) by mouth 2 (two) times a day. 60 tablet 11 01/20/20 Active celecoxib (CELEBREX) 100 MG capsule Take 200 mg by mouth 2 (two) times a day. Active fluticasone-umecli din-vilanter (TRELEGY ELLIPTA) 100-62.5-25 mcg inhalation powder Inhale 1 puff into the lungs daily. Rinse mouth, gargle, and spit after 30 each 11 04/15/20 Active zafirlukast (ACCOLATE) 20 MG tabletIndications: Medication refill Take 1 tablet (20 mg total) by mouth 2 (two) times a day. 180 tablet 3 10/07/19 23 Active tiotropium bromide (SPIRIVA RESPIMAT) 1.25 mcg/actuation Mist Inhale 2 puffs into the lungs daily. 12 g 3 10/07/19 23 Active aspirin 81 mg chewable tablet Take 81 mg by mouth. MED ON HOLD UNTIL 12/30 - 01/0802/07/20 Active atorvastatin (LIPITOR) 10 MG tablet Take 1 tablet by mouth every morning. 03/09/20 23 Active JARDIANCE 10 mg tablet 04/07/20 Active tiZANidine (ZANAFLEX) 2 MG tablet TAKE 1 TO 2 TABLET BY MOUTH THREE TIMES A DAY NEEDED 03/27/20 Active ferrous sulfate 324 mg (65 mg [place] iron) TbEC Take 324 mg by mouth. 09/15/19 24 Active folic acid 0.8 mg Cap capsule(s) oral 08/07/19 24 Active folic acid (FOLVITE) 1 MG tablet Take 1 mg by mouth. 07/31/19 24 Active methotrexate 2.5 MG Oral tablet PT TAKES 6 TABS ONCE A WEEK 08/07/19 24 Active oxyCODONE 5 MG immediate release tablet TAKE 2 TABLETS BY MOUTH EVERY 6 HOURS NEEDED FOR PAIN FOR 3 DAYS 07/18/19 24 Active oxyCODONE-acetamin ophen (PERCOCET) 5-325 mg per tablet Take 1 tablet by mouth 2 (two) times a day. 09/11/19 24 Active predniSONE (DELTASONE) 1 MG tablet tablet(s) oral 08/07/19 24 Active predniSONE (DELTASONE) 2.5 MG tablet Take 7.5 mg by mouth. 07/31/19 24 Active predniSONE (DELTASONE) 5 MG tablet Take 15 mg by mouth daily. 15 mg daily 09/05/19 24 Active albuterol (VENTOLIN HFA) 90 mcg/actuation inhaler Inhale 2 puffs into the lungs every 4 (four) hours as needed for wheezing or shortness of breath/dyspnea. 18 g 11 01/02/20 24 Active zafirlukast (ACCOLATE) 20 MG tablet TAKE 1 TABLET BY MOUTH TWICE A DAY 180 tablet 3 11/29/19 25 Active Additional Information Patient not taking.Reported on 01/06/2025 perfluorohexylocta ne, PF, 100 % DropIndications:Ch ronically dry eyes, bilateral Apply 1 drop in each eye to eye 4 (four) times a day. 3 mL 12/19/19 Active bisacodyl (DULCOLAX) 5 mg EC tablet Take 2 tablets by mouth right before beginning bowel prep. See instructions provided by the office 12/20/19 Active doxycycline hyclate (DORYX) 100 MG tablet TAKE 1 TABLET BY MOUTH 2 TIMES A DAY FOR 21 DAYS 01/04/20 Active NOVOLOG FLEXPEN U-100 INSULIN 100 unit/mL (3 mL) flexpen PLEASE SEE ATTACHED FOR DETAILED DIRECTIONS 01/02/20 Active levETIRAcetam (KEPPRA) 500 MG tablet Take 1 tablet by mouth 2 (two) times a day. 10/16/19 Active polyethylene glycol (GOLYTELY) 236-22.74-6.74 -5.86 gram solution Take 4L by mouth once for one dose. May substitue any PEG. Starting at 6PM the night before your procedure drink 1 8oz glasses at your own pace until you complete half of the gallon. Finish 2nd half of the gallon 5 hours before your procedure. 12/20/19 Active dicyclomine (BENTYL) 10 MG capsule Take 10 mg by mouth 4 (four) times a day before meals and nightly. Active fluticasone furoate (ARNUITY ELLIPTA) 100 mcg/actuation DsDv Inhale 1 puff into the lungs daily. 1 each 01/07/20 Active ipratropium (ATROVENT) 42 mcg (0.06 %) nasal spray 2 sprays by Nasal route 3 (three) times a day. 15 mL 01/07/20 025 Active Active Problems Problem Noted Date Diagnosed Date Lateral epicondylitis of left elbow 08/12/2021 Assessment & Plan (08/17/2021 5:49 PM EST): Avoid repetitive pulling, pushing and lifting with outstretched arms. Use lateral elbow pad for extended activities. Use warm pack prior to gentle, regular exercises-it is below of appropriate exercises with pictures and detailed instructions printed for home use today. Topical products 2-3 times daily as needed. If no better or worse may need to consider formal PT/OT. prison (current) use of oral hypoglycemic nelia gs 10/28/2019 Assessment & Plan (01/13/2020 2:43 PM EDT): Take exactly as prescribed. Keep well-hydrated. Aim at BS= 90-120 mg %. Assessment & Plan (10/28/2019 2:56 PM EDT): Take exactly as prescribed. Keep well-hydrated. Aim at BS= 90-120 mg %. Dry mouth 07/01/2019 Assessment & Plan (07/15/2019 8:07 AM EST): Keep well-hydrated. Avoid spicy and acidic foods. Diligent mouth hygiene. Regular dental checkups. Vitamin D insufficiency 11/14/2018 Assessment & Plan (08/12/2021 4:14 PM EST): Continue proper supplementation to replace deficit. Assessment & Plan (09/16/2020 2:46 PM EDT): Continue proper supplementation to replace deficit. Assessment & Plan (01/13/2020 2:42 PM EDT): Continue proper supplementation to replace deficit. Assessment & Plan (10/28/2019 2:53 PM EDT): Continue proper supplementation to replace deficit. Assessment & Plan (07/15/2019 8:08 AM EST): Continue proper supplementation to replace deficit. Class 2 obesity due to exces s calories without serious comorbidity in adult 11/14/2018 Assessment & Plan (08/17/2021 5:46 PM EST): Congratulations on ongoing 10 lbs weight loss-keep it off. Continue portion control. Limit concentrated sugars, saturated fats and calories in the diet. Keep well-hydrated. If unable to achieve expected goal consider formal dietary/nutritional support. Assessment & Plan (09/22/2020 6:10 PM EDT): Congratulations on 7 pounds weight loss since December 2019-keep it off and continue efforts. Portion control. Limit concentrated sugars, saturated fats and calories in the diet. Keep well-hydrated. If unable to achieve expected goal consider formal dietary/nutritional support. 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 Portion control. Limit concentrated sugars, saturated fats and calories in the diet. Keep well-hydrated. If unable to achieve expected goal consider formal dietary/nutritional support. Rheumatoid arthritis involvi ng multiple sites with positive rheumatoid factor 11/09/2017 Assessment & Plan (08/17/2021 5:47 PM EST): Carefully continue Plaquenil as prescribed. Get an EKG to monitor QT interval with long-term Plaquenil therapy. Get labs monitoring safety and efficacy today and prior to next visit in 3 months. Joint protection, energy conservation. Gentle, regular exercise routine-pamphlets on hands and shoulder exercises printed with written instructions and pictures for home use. Avoid falls, injuries, overuse. Keep body weight in ideal range for his height. She may benefit from topical cream such as Arnica, Biofreeze, Aspercreme versus medicated patches such as salonpas, icy hot patch 2-3 times daily and if necessary at bedtime x 3 weeks. Call if questions or problems. Assessment & Plan (09/16/2020 2:46 PM EDT): Carefully continue Plaquenil as prescribed. Get an EKG to monitor QT interval with long-term Plaquenil therapy. Get labs monitoring safety and efficacy prior to next visit in 2 months. Joint protection, energy conservation. Gentle, regular exercise routine-pamphlets on hands and shoulder exercises printed with written instructions and pictures for home use. Avoid falls, injuries, overuse. Keep body weight in ideal range for his height. She may benefit from topical cream such as Arnica, Biofreeze, Aspercreme versus medicated patches such as salonpas, icy hot patch 2-3 times daily and if necessary at bedtime x 3 weeks. Call if questions or problems. Assessment & Plan (01/14/2020 6:47 PM EDT): Carefully continue Plaquenil as prescribed. Get an EKG to monitor QT interval with long-term Plaquenil therapy. Get labs monitoring safety and efficacy prior to next visit in 2 months. Get yearly influenza vaccine by March 2020. Joint protection, energy conservation. Gentle, regular exercise routine-pamphlets on hands and shoulder exercises printed with written instructions and pictures for home use. Avoid falls, injuries, overuse. Keep body weight in ideal range for his height. She may benefit from topical cream such as Arnica, Biofreeze, Aspercreme versus medicated patches such as salonpas, icy hot patch 2-3 times daily and if necessary at bedtime x 3 weeks. Call if questions or problems. Assessment & Plan (10/28/2019 2:54 PM EDT): Carefully continue Plaquenil as prescribed. Get an EKG to monitor QT interval with long-term Plaquenil therapy. Get labs monitoring safety and efficacy prior to next visit in 2 months. Joint protection, energy conservation. Gentle, regular exercise routine. Avoid falls, injuries, overuse. Keep body weight in ideal range for his height. She may benefit from topical cream such as Arnica, Biofreeze, Aspercreme versus medicated patches such as salonpas, icy hot patch 2-3 times daily and if necessary at bedtime x 3 weeks. Call if questions or problems. Assessment & Plan (07/15/2019 8:06 AM EST): Carefully continue Plaquenil as prescribed. Get an EKG to monitor QT interval with long-term Plaquenil therapy. Get labs monitoring safety and efficacy. Joint protection, energy conservation. Gentle, regular exercise routine. Avoid falls, injuries, overuse. Keep body weight in ideal range for his height. She may benefit from topical cream such as Arnica, Biofreeze, Aspercreme versus medicated patches such as salonpas, icy hot patch 2-3 times daily and if necessary at bedtime x 3 weeks. Call if questions or problems. Primary osteoarthritis involving multiple joints 11/09/2017 Assessment & Plan (08/12/2021 4:12 PM EST): Joint protection, energy conservation. Gentle, regular exercise routine. Avoid falls, injuries, overuse. Topical cream versus patch as needed. Keep body weight in ideal range for her height. Assessment & Plan (09/16/2020 2:46 PM EDT): Joint protection, energy conservation. Gentle, regular exercise routine. Avoid falls, injuries, overuse. Topical cream versus patch as needed. Keep body weight in ideal range for her height. Assessment & Plan (01/13/2020 2:41 PM EDT): Joint protection, energy conservation. Gentle, regular exercise routine. Avoid falls, injuries, overuse. Topical cream versus patch as needed. Keep body weight in ideal range for her height. Assessment & Plan (10/28/2019 2:55 PM EDT): Joint protection, energy conservation. Gentle, regular exercise routine. Avoid falls, injuries, overuse. Topical cream versus patch as needed. Keep body weight in ideal range for her height. Assessment & Plan (07/15/2019 8:05 AM EST): Joint protection, energy conservation. Gentle, regular exercise routine. Avoid falls, injuries, overuse. Topical cream versus patch as needed. Keep body weight in ideal range for her height. History of total right knee replacement 11/10/19 18 Dry eyes 11/09/2017 Long-term use of Plaquenil 11/09/2017 Assessment & Plan (08/12/2021 4:14 PM EST): Daily sun protection. Proper hydration. Regular ocular checkups as scheduled-at least every 12 months. Assessment & Plan (09/16/2020 2:47 PM EDT): Daily sun protection. Proper hydration. Regular ocular checkups as scheduled-at least every 12 months. Assessment & Plan (01/13/2020 2:42 PM EDT): Daily sun protection. Proper hydration. Regular ocular checkups as scheduled-at least every 12 months. Assessment & Plan (10/28/2019 2:55 PM EDT): Daily sun protection. Proper hydration. Regular ocular checkups as scheduled-at least every 12 months. Assessment & Plan (07/15/2019 8:07 AM EST): Daily sun protection. Proper hydration. Regular ocular checkups as scheduled Encounter for monitoring chronic NSAID therapy 0 11/09/2017 Assessment & Plan (08/12/2021 4:13 PM EST): Take the lowest dose, with least frequency, for shortest time. Remember to take it always with food. Favor topical over oral preparations. Assessment & Plan (09/16/2020 2:47 PM EDT): Take the lowest dose, with least frequency, for shortest time. Remember to take it always with food. Favor topical over oral preparations. Assessment & Plan (01/13/2020 2:43 PM EDT): Take the lowest dose, with least frequency, for shortest time. Remember to take it always with food. Favor topical over oral preparations. Assessment & Plan (10/28/2019 2:55 PM EDT): Take the lowest dose, with least frequency, for shortest time. Remember to take it always with food. Favor topical over oral preparations. Cerebrovascular accident 07/19/2011 Overview (08/16/2014): Cerebrovascular accident Encounters Date Type Department Care Team Description 01/06/2025 3:30 PM EDT Office Visit [facility] [address], [address] [place] [address] Reg Regan MD Moderate persistent asthma without complication (Primary Dx); Chronic cough 12/18/2024 11:00 AM EDT Office Visit [facility] in [address] [place] [address] Nuvia Shields, OD Chronically dry eyes, bilateral (Primary Dx); High risk medication use; Age-related nuclear cataract of right eye; Pseudophakia of left eye; Hyperopia of both eyes with astigmatism and presbyopia; Type 2 diabetes mellitus without complication, without long-term current use of insulin 11/28/2024 Refill [facility] [address], [address] [place] [address] Reg Regan MD Medication Refill from Last 3 Months Social History Tobacco Use Types Packs/Day Years Used Date Smoking Tobacco: Former Cigarettes 1 15 1 973 - 1987 Smokeless Tobacco: Never Alcohol Use Standard Drinks/Week Comments Not Currently 0 (1 standard drink = 0.6 oz pur e alcohol) Education Answer Date Recorded Are you interested in more education? Not on mail e 10/20/2022 Are you concerned about learning? Not on file 10/20/2022 No 10/20/2022 No 10/20/2022 Digital Access Answer Date Recorded No 11/21/2022 No 11/21/2022 Reliable internet access at home? Not on file 11/21/2022 Device with a working camera? Not on file Comments Unknown Sex and Gender Information Value Date Recorded Sex Assigned at Not on file Legal Sex Female 7:15 PM EST Gender Identity Not on file Sexual Orientation Not on file Last Filed Vital Signs Vital Sign Reading Time Taken Comments Blood Pressure 118/60 01/06/2025 3:42 PM EDT Pulse 88 01/06/2025 3:42 PM EDT Temperature 36.8 C (98.2 F) 08/22/2011 11:21 AM EST Respiratory Rate 20 08/22/2011 11:21 AM EST Oxygen Saturation 94% 01/06/2025 3:42 PM EDT Inhaled Oxygen Concentration - - Weight 85.7 kg (189 lb) 01/06/2025 3:42 PM EDT Height 165.1 cm (5' 5 ) 01/06/2025 3:42 PM EDT Body Mass Index 31.45 01/06/2025 3:42 PM EDT Plan of Treatment Upcoming Encounters Date Type Department Care Team (Late st Contact Info) Description 04/08/2025 2:30 PM EDT Office Visit [facility] [address], [address] [place] [address] Reg Regan MD [address] [facility], [address] [place], [place] [id number] 01/09/2026 1:00 PM EDT Office Visit [facility] [place] [address] [facility] [address] [place] [address] Nuvia Shields, OD [address] [facility], [address] [email or web address] 01/09/2026 1:15 PM EDT Procedure visit [facility] [place] [address] [facility] [address] [place] [address] Health Maintenance Due Date Last Done Comments TSH LEVEL 1958 DEPRESSION SCREENING 1970 HEPATITIS C SCREENING 1976 LIPID PANEL 1976 PNEUMOCOCCAL VACCINES (50+ years) (1 of 2 - PCV) 1977 ZOSTER VACCINES (1 of 2) 1977 MAMMOGRAM 1998 COLOGUARD 2003 COLONOSCOPY 2003 COLORECTAL CANCER SCREENING 2003 FIT TEST 2003 FOBT 2003 SIGMOIDOSCOPY 2003 VIRTUAL COLONOSCOPY 2003 RSV VACCINE (1 - Risk 60-74 years 1-dose series) 2018 SCREENING FOR DIABETES 11/09/2020 11/09/2017 OSTEOPOROSIS SCREENING INITIAL (ONE-TIME) 2023 COVID-19 VACCINE ( season) 2024 07/03/2021, 08/31/2020, 08/24/2020, Additional history exists INFLUENZA VACCINE (#1) 2025 Adult Td,Tdap Booster 11/16/2030 11/16/2020 SMOKING STATUS SCREENING (Once After 26 Yrs) Completed 01/06/2025 HEPATITIS A VACCINES Aged Out No long er eligible based on patient's age to complete this topic HIB VACCINES Aged Out No longer eligi ble based on patient's age to complete this topic MENINGOCOCCAL VACCINES (ACWY) Aged Out No longer eligible based on patient's age to complete this topic MENINGOCOCCAL VACCINES (B) Aged Out N o longer eligible based on patient's age to complete this topic Medical Devices Not on file Procedures Procedure Name Priority Date/Time Associated Diagnosis Comments OCT, RETINA - OU - BOTH EYES Routine 12/18/2024 11:49 AM EDT High risk medication use from Last 3 Months Results * OCT, RETINA - OU - BOTH EYES - [facility]rus (12/18/2024 11:49 AM EDT) Central Macular Thickness - OS 266 um HARMONY Central Macular Thickness - OD 268 um HARMONY Other Narrative HARMONY - 12/18/2024 12:04 PM EDT Right Eye Quality was good. Findings include normal observations. The Central Macular Thickness was 268 um. Left Eye Quality was good. Findings include normal observations. The Central Macular Thickness was 266 um. Notes Test completed by Primo Marquis No retinal toxicity seen us Nuvia Shields OD OPHTHALMOLOGY IMAGING Final Res ult [facility] from Last 3 Months Insurance [facility] A & B [facility] MEDICARE SUPPLEMENT MEDICARE PART A & B [id number] [place] [address] [employer] MEDICARE SUPPLEMENT MEDICARE PART A & B [employer] MEDICARE SUPPLEMENT MED[place] PART A & [place] [id number] [facility] EXTENSION MEDICARE SUPPLEMENT MEDICARE PART A & [place] [address] [place], [place] [address] MEDICARE SUPPLEMENT MEDICARE PART A & B [employer] MEDICARE SUPPLEMENT MEDICARE PART A & B [facility] EX[employer]ION MEDICARE SUPPLEMENT [employer] MEDICARE SUPPLEMENT MEDICARE PART A & B Member Subscriber Plan / Payer ( fective 2018-Present) Name:Monet Valle Member ID:[id number] Relation to Subscriber:Self Name:Monet Valle Subscriber ID:[id number] Payer ID:[id number] Group ID:Not on file Type:Medicare Address: [facility] TRADE 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 It is not the complete legal health record.[facility]
--- OUTSIDE RECORDS SUMMARY | 2025-02-20 11:03 | XMS_ITS | Clinical Summary ---
Author Organization [facility] Address [facility] [place] [address] Care Team Providers Care Injection Moulding Machine Operator Name Role Phone Jose Martin Gray MD Primary Care Provider [phone] Allergies Active Allergy Reactions Criticality Noted Date Comments Codeine Shortness Of Breath High 03/07/2017 Oxycodone-Acetaminoph en Shortness Of Breath High 03/07/2017 Tramadol Other (See Comments) 03/07/2017 stroke like symptoms Medications venlafaxine (EFFEXOR-XR) 150 mg Capsule, Sust. Release 24 hr Take 150 mg by mouth daily. Active levothyroxine (SYNTHROID) 100 mcg Tablet Take 100 mcg by mouth daily. Active pantoprazole (PROTONIX) 40 mg Tablet, Delayed Release (E.C.) Take 40 mg by mouth daily. Active fluticasone-igor meterol (ADVAIR) 500-50 mcg/dose Disk with Device Inhale 1 puff into the lungs every 12 hours. Active zafirlukast (ACCOLATE) 20 mg Tablet Take 20 mg by mouth 2 times daily. Active glipiZIDE (GLUCOTROL) 5 mg Tablet Take 5 mg by mouth 2 times daily (before meals). Active prazosin (MINIPRESS) 1 mg Capsule Take 1 mg by mouth nightly. Active zolpidem (AMBIEN) 10 mg Tablet Take 10 mg by mouth nightly as needed for Sleep. Active venlafaxine (EFFEXOR) 75 mg Tablet Take 75 mg by mouth 3 times daily. Active clonazePAM (KLONOPIN) 2 mg Tablet Take 2 mg by mouth 2 times daily as needed for Anxiety. Active lamoTRIgine (LAMICTAL) 200 mg Tablet Take 200 mg by mouth daily. Active pantoprazole (PROTONIX) 40 mg Tablet, Delayed Release (E.C.) Take 40 mg by mouth daily. Active QUEtiapine (SEROQUEL) 300 mg Tablet Take 300 mg by mouth 2 times daily. Active topiramate (TOPAMAX) 200 mg Tablet Take 200 mg by mouth 2 times daily. Active hydroxychloroqu ine (PLAQUENIL) 200 mg Tablet Take by mouth daily. Active multivitamin (THERAGRAN) Tablet Take 1 tablet by mouth daily. Active CALCIUM CARBONATE/VITAM IN D3 (CALCIUM WITH VITAMIN D3 ORAL) Take by mouth. Active QUEtiapine (SEROQUEL) 100 mg Tablet Take 100 mg by mouth 2 times daily. Active albuterol 90 mcg/actuation HFA Aerosol Inhaler Inhale 2 puffs into the lungs every 4 hours as needed for Wheezing. Use with spacer Active clonazePAM (KLONOPIN) 1 mg Tablet Take 1 mg by mouth as needed for Anxiety. Active Social History Tobacco Use Types Packs/Day Years Used Date Smoking Tobacco: Former Cigarettes Q uit: 03/07/1987 Smokeless Tobacco: Never Alcohol Use Standard Drinks/Week Comments Yes 0 (1 standard drink = 0.6 oz pur e alcohol) very rarely Comments Unknown Sex and Gender Information Value Date Recorded Sex Assigned at Not on file Legal Sex Female 1:57 PM EDT Gender Identity Not on file Sexual Orientation Not on file Last Filed Vital Signs Vital Sign Reading Time Taken Comments Blood Pressure 108/64 03/22/2017 10:22 AM EDT Pulse 90 03/22/2017 10:22 AM EDT Temperature - - Respiratory Rate - - Oxygen Saturation - - Inhaled Oxygen Concentration - - Weight 100.7 kg (222 lb) 03/22/2017 10:22 AM EDT Height 162.6 cm (5' 4 ) 03/22/2017 10:22 AM EDT Body Mass Index 38.11 03/22/2017 10:22 AM EDT Plan of Treatment Health Maintenance Due Date Last Done Comments CT Colonography 1958 Colonoscopy 1958 Colorectal Cancer Screening 1958 FIT DNA 1958 FIT 1958 Sigmoidoscopy (10 year) with FIT yearly 1958 Sigmoidoscopy 1958 Hepatitis C Screening 1976 Tetanus/Diphtheria/Pertussis Vaccines (1 - Tdap) 04/05 HPV test 1988 PAP Smear 1988 Breast Cancer Share Decision Needed 1998 Breast Cancer screening 1998 Pneumoccocal Vaccine: 50+ (1 of 1 - PCV) 2008 Zoster vaccine (1 of 2) 2008 Advance Directive 2013 Bone Density Scan 2023 Covid-19 Vaccine (1 - 2023- season) 2024 Influenza (Flu) vaccine (1 o f 1 - Influenza standard series) 02/24/2025 Insurance [facility] Care Teams Injection Moulding Machine Operator Relationship Specialty Start Date End Date Jose Martin Gray MD [place] [address] [place] [address] PCP - General General Internal Medicine 02/20/17
--- OUTSIDE RECORDS SUMMARY | 2025-02-20 11:03 | XMS_ITS | Encounter Summary ---
Author Organization [facility] Address [address] [place] [address] Care Team Providers Care Signal Mechanic Name Role Phone Jose Martin Gray MD Primary Care Provider [phone] Reason for Visit * Reason Onset Date Comments special procedure 02/19/2025 Encounter Details Date Type Department Care Team (Late st Contact Info) Description 02/19/2025 Telephone Gastroenterology - [address] [place] [address] Reyna Flaherty MD [address] [place] [phone] Social History Tobacco Use Types Packs/Day Years Used Date Smoking Tobacco: Never Assessed Comments Unknown Sex and Gender Information Value Date Recorded Sex Assigned at Female 09/05/2024 9:10 AM EDT Legal Sex Female 5:32 PM EST Gender Identity Female 09/05/2024 9:10 AM EDT Sexual Orientation Straight 09/05/2024 9: 10 AM EDT documented as of this encounter Progress Notes * Nayely Roldan - 02/20/2025 8:21 AM EDT 2nd attempt to reach patient to schedule appointment. Left message to call back. * Norma Chi - 02/19/2025 4:08 PM EDT Pt returning call. * Nayely Roldan - 02/19/2025 4:01 PM EDT 1st attempt to reach patient to schedule appointment. Left message to call back. COL/EGD - ANY (RESCHEDULE) * Cynthia Perry - 02/19/2025 3:23 PM EDT Pt is calling to schedule colon and egd documented in this encounter Plan of Treatment Not on file documented as of this encounter Visit Diagnoses Not on filedocumented in this encounter Care Teams Signal Mechanic Relationship Specialty Start Date End Date Jose Martin Gray MD [address] [place] [address] Dr Yuliet [place] PCP - General Internal Medicine 07/18/24 documented as of this encounter
--- OUTSIDE RECORDS SUMMARY | 2025-02-20 11:03 | XMS_ITS | Clinical Summary ---
Author Organization [address] Address [address] [place] [address] Phone Care Team Providers Care Tube Bender Hand Name Role Phone Jose Martin Gray MD Primary Care Provider [phone] Allergies Active Allergy Reactions Criticality Noted Date [...] Encounters Date Type Department Care Team Description 02/19/2025 Telephone Gastroenterology - [address] [facility] [address] [place] [address] Reyna Flaherty MD from Last 3 Months Immunizations Name [...] series) 2018 Cholesterol Screening (Lipid Panel) 06/04/2024 Falls Risk Assessment 06/04/2024 Hepatitis C Screening 06/04/2024 Medicare Annual Wellness Visit 06/04/2024 Osteoporosis Screening (Bone Density Screening) 06/04/2024 Social Influencers of Health Screening 06/04/2024 Depression Screening 06/26/2024 Diabetes: Annual Urine Albumin-Creatinine Ratio (uACR) 08/06/2024 Diabetes: Blood Sugar Control Test (HGBA1C) 08/06/2024 COVID-19 Vaccine (8 - Mixed Product risk season) 2024 03/15/2024, 04/27/2022, 07/03/2021, Additional history exists Colorectal Cancer Screening: Colonoscopy 10/08/2024 10/08/2014 Influenza Vaccine (#1) 2025 03/15/2024, 2020 Diabetes: [...] 08/06/2024 3:31 PM EST Bariatric surgery status EXTERNAL COLONOSCOPY REPORT Routine 10/08/2014 11:21 AM EDT from Last 3 Months or Most Recently Relevant to Health Maintenance Results * (ABNORMAL) Comprehensive metabolic panel (08/06/2024 3:31 PM EST) Sodium 139 133 - 145 mmol/L LAB CHEMISTRY METHOD 08/06/2024 4:[address] [facility] Potassium 4.7 3.5 - 5.5 mmol/L LAB CHEMISTRY METHOD 08/06/2024 4:[address] [facility] Chloride 111(H) 96 - 110 mmol/L LAB CHEMISTRY METHOD 08/06/2024 4:44 PM [facility] CO2 22 21 - 32 mmol/L LAB CHEMISTRY METHOD 08/06/2024 4:44 PM [facility] Anion Gap 6 3 - 11 LAB CHEMISTRY METHOD 08/06/2024 4:44 PM [facility] Glucose 103(H) 70 - 100 mg/dL LAB CHEMISTRY METHOD 08/06/2024 4:44 PM [facility] BUN 26(H) 5 - 25 mg/dL LAB CHEMISTRY METHOD 08/06/2024 4:44 PM [facility] Creatinine 1.07 0.50 - 1.10 mg/dL LAB CHEMISTRY METHOD 08/06/2024 4:44 PM [facility] eGFR 57(L) >=60 mL/min/1. 73m2 LAB CHEMISTRY METHOD 08/06/2024 4:44 PM [facility] Comment:Calculation based on the Chronic Kidney Disease Epidemiology Collaboration (CKD-EPI) equation refit without adjustment for race. BUN/Creatinine Ratio 24.3 LAB CHEMISTRY METHOD 08/06/2024 4:44 PM [facility] Calcium 9.2 8.5 - 10.5 mg/dL LAB CHEMISTRY METHOD 08/06/2024 4:44 PM [facility] AST (SGOT) 13 10 - 42 unit/L LAB CHEMISTRY METHOD 08/06/2024 4:44 PM [facility] ALT (SGPT) 22 10 - 60 unit/L LAB CHEMISTRY METHOD 08/06/2024 4:44 PM [facility] Alkaline Phosphatase 157(H) 42 - 121 unit/L LAB CHEMISTRY METHOD 08/06/2024 4:44 PM [facility] Total Protein 6.9 6.0 - 8.0 g/dL LAB CHEMISTRY METHOD 08/06/2024 4:44 PM [facility] Albumin 4.0 3.2 - 5.0 g/dL LAB CHEMISTRY METHOD 08/06/2024 4:[address] [facility] Total Bilirubin 0.3 0.0 - 1.4 mg/dL LAB CHEMISTRY METHOD 08/06/2024 4:[address] [facility] Blood Venous blood specimen / Unknown Venipuncture / Unknown 08/06/2024 3:31 PM EST 08/06/2024 3:59 PM EST Saeed Murphy MD LAB BLOOD ORDERABLES Final Resu lt [facility] [address] [place] [address], [place] [phone] * External Colonoscopy Report (10/08/2014 11:21 AM EDT) Anatomical Region Laterality Modality Endoscopy [facility] Provider GI~PROCEDURE ORDERABLES F inal Result from Last 3 Months or Most Recently Relevant to Health Maintenance Insurance [employer] MEDICARE MEDICARE [facility] Care Teams Tube Bender Hand Relationship Specialty Start Date End Date Jose Martin Gray MD [address] [place] [address] Dr Yuliet [place] PCP - General Internal Medicine 07/18/24
== END 2025-02-20 10:42 | disposition home or self-care (01) ==
LOC: HO.HMCHD 09:55
PROVIDERS: PCP Internal Medicine; Visit Provider Internal Medicine
DX: E11.65 Type 2 diabetes mellitus with hyperglycemia (principal); F33.41 Major depressive disorder, recurrent, in partial remission

== ENCOUNTER 2025-02-20 09:55 | Outpatient (REF) | payer MEDICARE, OTHER, SELFPAY ==
[2025-02-20 11:52] LABS: Alanine Aminotransferase 17 U/L (0-31); Albumin Level 4.1 g/dL (3.5-5.0); Alkaline Phosphatase 129 U/L (39-117); Anion Gap 9 (12-20); Aspartate Amino Transferase 19 U/L (5-31); Blood Urea Nitrogen 26 mg/dL (9-16); Calcium 8.9 mg/dL (8.4-10.2); Carbon Dioxide 21 mmol/L (22-29); Chloride 113 mmol/L (96-108); Estimated Glomerular Filt Rate 46; Potassium 4.0 mmol/L (3.3-5.1); Sodium 139 mmol/L (135-145); Total Protein 6.5 g/dL (6.5-8.0)
[2025-02-20 12:16] LABS: Appearance Urine Cloudy; Glucose Urine UA >=1000 mg/dL (Negative); PH 5.5 (5.0-9.0); Specific Gravity - Urine 1.020 (1.005-1.025); UMIC TRIGGER UA YES
== END 2025-02-20 09:56 | disposition home or self-care (01) ==
LOC: HO.LAB 09:55
PROVIDERS: PCP Internal Medicine; Visit Provider Internal Medicine
DX: E11.65 Type 2 diabetes mellitus with hyperglycemia (principal); R32 Unspecified urinary incontinence; F33.41 Major depressive disorder, recurrent, in partial remission; Z86.73 Personal history of transient ischemic attack (TIA), and cerebral infarction without residual deficits
CPT/HCPCS: 36415; 80053; 81001; 81003; 83036; 87086; 87088; 87186; 96127; 99212

== ENCOUNTER 2025-05-26 13:48 | Outpatient (AMB) | payer MEDICARE, OTHER, SELFPAY ==
--- NOTE | 2025-05-26 13:47 | MHC.PC.OV ---
Vital Signs 05/26/25 13:55 Height 5 ft 4 in Weight 200 lb BMI 34.3 BP 110/68 Blood Pressure Location Lt brachial Position Sitting Respiration 14 Pulse 85 Pulse Source Pulse Oximeter Temp 98.2 F Temp Source Oral Pulse Oximetry (%) 94 Oxygen Delivery Method Room Air Intake Visit Reasons: Diabetic follow up /MRI for Shoulder Intake Note: Diabetes follow up, MRI for right shoulder Open Cut Examiner Required: No Accompanied by: Spouse Allergies codeine (Codeine) Allergy (Severe, Verified 05/26/25 13:49) Anaphylaxis acetaminophen (Percocet) Allergy (Unknown, Verified 05/26/25 13:49) Unknown tramadol (TRAMADOL) Adverse Reaction (Severe, Verified 05/26/25 13:49) diarrhea/incoherence hydromorphone (Dilaudid) Adverse Reaction (Unknown, Verified 05/26/25 13:49) Hallucinations oxycodone (From Percocet) Adverse Reaction (Unknown, Verified 05/26/25 13:49) Vomiting Tobacco use date assessed: 05/26/25 Fall risk assessment: 2 + Falls in past year Last assessed Fall Risk: 05/26/25 Dental Screening Dental Screen Date: 10/24/24 HPI HPI Comments History of Present Illness Details The patient is a 64 year old female with past medical history of CVA 2014, 2022, bipolar disorder, DM, asthma, presenting for follow up Treated in December for Lyme after being evaluated for rash-she was treated. Neuro: No interval issues. She [place] [facility] [place]. She had been seen prior in [place] after falling. She was noted to have worsening subdural hematomas and was hospitalized for frequent neuro checks. She was released on 10/15. Seen again in the ER on 10/20/24 for nausea, reimaged and the bleeding was improving. Saw NS thereafter GI: Saw Dr Murphy for GI consultation. Tells colonoscopy is planned DM: on jardiance 10, glipizide 10 bid. A1C 6.9 from 8.1 Follows with rheumatology. DXA osteoporosis. They are considering prolia for treatment Sees Dr Hamm -Chris last year Colonoscopy: 2014, 2019 (poor prep) ROS CONSTITUTIONAL: Denies weight loss, fever and chills. HEENT: Denies changes in vision and hearing. RESPIRATORY: Denies SOB and cough. CV: Denies palpitations and CP GI: Denies abdominal pain, nausea, vomiting and diarrhea. : Urinary incontinence, denies dysuria. Some urgency MSK: Denies new myalgia and joint pain. SKIN: Denies rash and pruritus. NEUROLOGICAL: Denies headache PSYCHIATRIC: Denies recent changes in mood. PHYSICAL EXAM: GENERAL: Alert and oriented x 3. NAD EYES: EOMI. Anicteric. HENT: Moist mucous membranes. No scleral icterus. No cervical lymphadenopathy. LUNGS: Clear to auscultation bilaterally. CARDIOVASCULAR: Regular rate and rhythm. No murmur. No JVD. ABDOMEN: Soft, non-tender +bs EXTREMITIES: No edema. Non-tender. SKIN: No rashes or lesions. Warm. NEUROLOGIC: No focal neurological deficits. CN II-XII grossly intact PSYCHIATRIC: Cooperative. Appropriate mood and affect [facility] Medical History Disseminated Lyme disease Rash Anxiety PTSD (post-traumatic stress disorder) Depression Diabetes Family History Mother No problems noted. Father No problems noted. Social History (Updated 05/26/25 @ 14:04 by Lillian Oates CMA) Housing: House Alcohol intake: current Alcohol intake frequency: holidays/special occasions only Patient Tobacco Use Status: Former Tobacco user e-Cigarette/Vaping Use: Former Use service: No Current occupational status: retired Cognitive needs: Yes (cane) Hearing needs: Yes (b/l hearing aids) Vision needs: Yes (rx glasses) Questionnaire Thrive Questionnaire Date Thrive assessed: 01/01/25 AUDIT C Alcohol Use Questionnaire (AUDIT-C) 1. How often do you have a drink containing alcohol?: Monthly or less 2. How many drinks containing alcohol do you have on a typical day when you are drinking?: 1 or 2 3. How often do you have six or more drinks on one occasion?: Never Total Score: 1 MARIE-7 AMB Questionnaire MARIE-7 Date MARIE - 7 assessed: 01/01/25 Source: Developed by Drs. Yariel De La Rosa, Tammi Romero, Emir Zaman and colleagues, with an educational christiane from [employer]. Physical exam (Primary Care) Tobacco/Smoking Status: Tobacco use Status Tobacco use date assessed 10/24/24 05/26/25 13:48 Patient Tobacco Use Status Former Tobacco user 05/26/25 13:48 e-Cigarette/Vaping Use Former Use 05/26/25 13:48 Thrive Assessment: Date of Thrive Assessment Date Thrive assessed 01/01/25 05/26/25 13:48 Results AMB Hemoglobin A1c AMB Hemoglobin A1c 6.9 % Last Edit by Lillian Oates CMA on 05/26/25 14:06 Coding Assessment & Plan Assessment & Plan Orders: Orders MR shoulder LT wo con Today M12.812 - Other specific arthropathies, not elsewhere classified, left shoulder, M19.019 - Primary osteoarthritis, unspecified shoulder AMB Hemoglobin A1c Today Z13.9 - Encounter for screening, unspecified MR cervical spine wo con Today M47.812 - Spondylosis without myelopathy or radiculopathy, cervical region, Z98.890 - Other specified postprocedural states Medications: New Mounjaro 2.5 mg (0.5 mL) subcut QWEEK 2 mL 1RF NS E11.65 - Type 2 diabetes mellitus with hyperglycemia
[2025-05-26 13:55] VITALS: BP 110/68; PULSE 85; RESP 14; TEMP 36.8; O2SAT 94; BMI 34.3
--- OUTSIDE RECORDS SUMMARY | 2025-05-26 17:18 | XMS_ITS | Clinical Summary ---
Author Organization [facility] Address [facility] [place] [address] Care Team Providers Care Oncology Nurse Navigator Name Role Phone Jose Martin Gray MD Primary Care Provider [phone] Allergies Active Allergy Reactions Criticality Noted Date [...] 1976 Tetanus/Diphtheria/Pertussis Vaccines (1 - Tdap) 04/05 Breast Cancer Share Decision Needed 1998 Breast Cancer screening 1998 Pneumoccocal Vaccine: 50+ (1 of 1 - PCV) 2008 Zoster vaccine (1 of 2) 2008 Advance Directive 2013 Bone Density Scan 2023 Covid-19 Vaccine (1 - season) 2025 Influenza (Flu) vaccine (1 o f 1 - Influenza standard series) 02/24/2025 Insurance [facility] Care Teams Oncology Nurse Navigator Relationship Specialty Start Date End Date Jose Martin Gray MD [facility] [address] [place] [address] PCP - General General Internal Medicine 02/20/17
--- OUTSIDE RECORDS SUMMARY | 2025-05-26 17:18 | XMS_ITS | Clinical Summary ---
Author Organization [employer] [facility] Address [address] [address] Phone Care Team Providers Care Rn Allergy Name Role Phone Josefina Ford MD Primary [...] Active prazosin (MINIPRESS) 1 MG capsule Take 2 mg by mouth nightly at bedtime. 07/30/19 [...] AFFECTED AREA TWICE A DAY NEEDED 07/08/19 21 Active venlafaxine (EFFEXOR-XR) 150 MG 24 hr capsule Take 150 mg by mouth 2 (two) times a day. Active venlafaxine (EFFEXOR) 75 MG tablet Take 75 mg by mouth nightly at bedtime. Active acetaminophen (TYLENOL) 325 mg tablet as needed. 05/10/20 21 Active ibuprofen (ADVIL,MOTRIN) 600 MG tablet as needed. 05/10/20 21 Active QUEtiapine (SEROQUEL) 100 MG tabletIndications: 3 tabs prn a day Take by mouth nightly at bedtime. Indications: 3 tabs prn a day Active FML FORTE 0.25 % ophthalmic suspension SHAKE LIQUID AND INSTILL 1 DROP IN RIGHT EYE FOUR TIMES DAILY DIRECTED 08/05/19 22 Active hydrOXYchloroQUINE (PLAQUENIL) 200 mg tabletIndications: Rheumatoid arthritis involving multiple sites with positive rheumatoid factor,Primary osteoarthritis involving multiple joints,Long-term use of Plaquenil TAKE 1 TABLET BY MOUTH TWICE A DAY 180 tablet 3 10/12/19 22 Active Additional Information Patient not taking.Reported on 03/11/2025 celecoxib (CELEBREX) 100 MG capsule Take 200 mg by mouth 2 (two) times a day. Active fluticasone-umecli din-vilanter (TRELEGY ELLIPTA) 100-62.5-25 mcg inhalation powder Inhale 1 puff into the lungs daily. Rinse mouth, gargle, and spit after 30 each 11 04/15/20 22 Active Additional Information Patient not taking.Reported on 03/11/2025 zafirlukast (ACCOLATE) 20 MG tabletIndications: Medication refill Take 1 tablet (20 mg total) by mouth 2 (two) times a day. 180 tablet 3 10/07/19 23 Active tiotropium bromide (SPIRIVA RESPIMAT) 1.25 mcg/actuation Mist Inhale 2 puffs into the lungs daily. 12 g 3 10/07/19 23 Active aspirin 81 mg chewable tablet Take 81 mg by mouth. MED ON HOLD UNTIL 12/30 - 01/0802/07/20 23 Active atorvastatin (LIPITOR) 10 MG tablet Take 1 tablet by mouth every morning. 03/09/20 23 Active JARDIANCE 10 mg tablet 04/07/20 23 Active tiZANidine (ZANAFLEX) 2 MG tablet TAKE 1 TO 2 TABLET BY MOUTH THREE TIMES A DAY NEEDED 03/27/20 23 Active ferrous sulfate 324 mg (65 mg shoshone-paiute iron) TbEC Take 324 mg by mouth. [...] Active Additional Information Patient not taking.Reported on 03/11/2025 perfluorohexylocta ne, PF, 100 % DropIndications:Ch ronically dry eyes, bilateral Apply 1 drop in each eye to eye 4 (four) times a day. 3 mL 11 /25/20 25 Active bisacodyl (DULCOLAX) 5 mg EC tablet [...] (three) times a day. 15 mL 01/07/20 Active Active Problems Problem Noted Date Diagnosed [...] worse may need to consider formal PT/OT. residential (current) use of oral hypoglycemic nelia 10/28/2019 Assessment & Plan (01/13/2020 2:43 PM [...] EST): Continue regular meetings with her weight records management manager as scheduled and follow his advice. Portion [...] 2 months. Get yearly influenza vaccine by mid March 2020. Joint protection, energy conservation. Gentle, [...] Encounters Date Type Department Care Team Description 03/11/2025 4:30 PM EDT Office Visit [facility] [address] [facility] 3rd Floor, [address] [place] [address] Reg Regan MD Moderate persistent asthma without complication (Primary Dx); Chronic cough from Last 3 Months Social History Tobacco Use Types Packs/Day Years Used Date Smoking Tobacco: Former Cigarettes 1 15 1 973 - 1988 Smokeless Tobacco: Never Alcohol Use Standard Drinks/Week Comments Not Currently 0 (1 standard drink = 0.6 oz pur e alcohol) Education Answer Date Recorded Are you interested in more education? Not on mali e 10/20/2022 Are you concerned about learning? [...] Sign Reading Time Taken Comments Blood Pressure 148/70 03/11/2025 4:57 PM EDT Pulse 102 03/11/2025 4:57 PM EDT Temperature 36.8 C (98.2 F) 08/22/2011 11:21 AM EST Respiratory Rate 20 08/22/2011 11:21 AM EST Oxygen Saturation 96% 03/11/2025 4:57 PM EDT Inhaled Oxygen Concentration - - Weight 85.7 kg (189 lb) 01/06/2025 3:42 PM EDT Height 165.1 cm (5' 5 ) 01/06/2025 3:42 PM EDT Body Mass Index 31.45 01/06/2025 3:42 PM EDT Plan of Treatment Upcoming Encounters Date Type Department Care Team (Late st Contact Info) Description 09/29/2025 2:40 PM EDT Office Visit [facility] [address] [place] [address] 3rd Floor, [address] [place] [address] Yariel Arthur MD, MS [address] [facility], [address] [address] [email or web address] 01/09/2026 1:00 PM EDT Office Visit [facility] in [address] [place] [address] Nuvia Shields, OD [address] [facility] [address] 01/09/2026 1:15 PM EDT Procedure visit [facility] in [address] [place] [address] Health Maintenance Due Date Last Done Comments TSH LEVEL 1958 DEPRESSION SCREENING 1970 HEPATITIS C SCREENING 1976 LIPID PANEL 1976 PNEUMOCOCCAL VACCINES (50+ years) (1 of 2 - PCV) 1977 ZOSTER VACCINES (1 of 2) 1977 MAMMOGRAM 1998 COLOGUARD 2003 COLONOSCOPY 2003 COLORECTAL CANCER SCREENING 2003 FIT TEST 2003 FOBT 2003 SIGMOIDOSCOPY 2003 VIRTUAL COLONOSCOPY 2003 RSV VACCINE (1 - Risk 50-74 years 1-dose series) 2008 SCREENING FOR DIABETES 11/09/2020 11/09/2017 OSTEOPOROSIS SCREENING INITIAL (ONE-TIME) 2023 INFLUENZA VACCINE (#1) 2025 COVID-19 VACCINE ( season) 2025 07/03/2021, 08/31/2020, 08/24/2020, Additional history exists Adult Td,Tdap Booster 11/16/2030 11/16/2020 SMOKING STATUS SCREENING (Once After 26 Yrs) Completed 01/06/2025 HEPATITIS A VACCINES Aged Out No long er eligible based on patient's age to complete this topic HIB VACCINES Aged Out No longer eligi ble based on patient's age to complete this topic IPV VACCINES Aged Out No longer eligi ble based on patient's age to complete this topic MENINGOCOCCAL VACCINES (ACWY) Aged Out No longer eligible based on patient's age to complete this topic MENINGOCOCCAL VACCINES (B) Aged Out N o longer eligible based on patient's age to complete this topic Medical Devices Not on file Insurance MEDICARE PART A & B [facility] [employer] MEDICARE SUPPLEMENT MEDICARE PART A & B [facility] [employer] MEDICARE SUPPLEMENT MEDICARE PART A & B [facility] MEDICARE SUPPLEMENT MEDICARE PART A & B [facility] MEDICARE SUPPLEMENT MEDICARE PART A & B [facility] MEDICARE SUPPLEMENT MEDICARE PART A & B [facility] MEDICARE SUPPLEMENT MEDICARE PART A & B [facility] MEDICARE SUPPLEMENT MEDICARE PART A & B [facility] MEDICARE SUPPLEMENT MEDICARE PART A & B [facility] MEDICARE SUPPLEMENT MEDICARE PART A & B [employer] [facility] MEDICARE SUPPLEMENT Care Teams Rn Allergy Relationship Specialty Start Date End Date Josefina Ford MD [address] [place] [address] [place] [address] PCP - General Internal Medicine 01/06/25 Additional Source Comments The information contained in this document represents components of the legal health record. It is not the complete legal health record.[facility]
== END 2025-05-26 14:18 | disposition home or self-care (01) ==
LOC: HO.HMCFM 13:48
PROVIDERS: PCP Internal Medicine; Visit Provider Internal Medicine
DX: Z13.9 Encounter for screening, unspecified (principal)

== ENCOUNTER → 2025-05-26 13:48 | Outpatient (BNVA) | payer MEDICARE, OTHER, SELFPAY | PROVIDERS: PCP Internal Medicine; Visit Provider Internal Medicine | DX: E11.65 Type 2 diabetes mellitus with hyperglycemia (principal); M12.812 Other specific arthropathies, not elsewhere classified, left shoulder; Z86.19 Personal history of other infectious and parasitic diseases; M50.30 Other cervical disc degeneration, unspecified cervical region; M81.0 Age-related osteoporosis without current pathological fracture; Z86.73 Personal history of transient ischemic attack (TIA), and cerebral infarction without residual deficits; Z98.890 Other specified postprocedural states; Z13.9 Encounter for screening, unspecified | CPT/HCPCS: 83036; 99212 ==

== ENCOUNTER 2025-06-24 10:40 | Outpatient (REF) | payer MEDICARE, OTHER, SELFPAY ==
--- OUTSIDE RECORDS SUMMARY | 2025-06-24 14:19 | XMS_ITS | Clinical Summary ---
Author Organization [employer] [facility] Address [address] [address] Phone Care Team Providers Care Microchip Specialist Name Role Phone Josefina Ford MD Primary [...] Active ferrous sulfate 324 mg (65 mg timbi-sha shoshone iron) TbEC Take 324 mg by mouth. [...] worse may need to consider formal PT/OT. 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 Portion [...] Cerebrovascular accident 07/19/2011 Overview (08/16/2014): Cerebrovascular accident Social History Tobacco Use Types Packs/Day Years [...] Description 09/29/2025 2:40 PM EDT Office Visit [facility] [address] [place] [address] 3rd Floor, [address] [place] [address] Yariel Arthur MD, [place] [facility], [address] [place] [address] [email or web address] 01/09/2026 1:00 PM EDT Office Visit [facility] in [address] [place] [address] Nuvia Shields OD [address] [place] [address] 01/09/2026 1:15 PM EDT Procedure visit [facility] in [address] [place] [address] Health Maintenance Due Date Last Done Comments [...] file Insurance MEDICARE PART A & B [facility] MEDICARE SUPPLEMENT MEDICARE PART A & B [facility] MEDICARE SUPPLEMENT MEDICARE PART A & B [facility] MEDICARE SUPPLEMENT MEDICARE PART A & [facility] MEDICARE SUPPLEMENT MEDICARE PART A & B [facility] MEDICARE SUPPLEMENT MEDICARE PART A & B Member Subscriber Plan / Payer (Ef fective 2018-Present) Name:Monet Valle Member ID:[id number] Relation to Subscriber:Self Name:Monet Valle Subscriber ID:[id number] Payer ID:[id number] Group ID:Not on file Type:Medicare Address: [employer] [address] [place] [id number] [place] [address] EXTENSION MEDICARE SUPPLEMENT MEDICARE PART A & B Member Subscriber Plan / Payer (Ef fective 2018-Present) Name:Monet Valle Member ID:[id number] Relation to Subscriber:Self Name:Monet Valle Subscriber ID:[id number] Payer ID:[id number] Group ID:Not on file Type:Medicare Address: [employer] [address] [place] [phone] [place] [address] EXTENSION MEDICARE SUPPLEMENT MEDICARE PART A & B [facility] MEDICARE SUPPLEMENT MEDICARE PART A & B [id number] [place] [address] EXTENSION MEDICARE SUPPLEMENT MEDICARE PART A & B MEDICARE SUPPLEMENT Care Teams Microchip Specialist Relationship Specialty Start Date End Date Josefina Ford MD [address] [place] [address] [place] [address] PCP - General Internal Medicine 01/06/25 Additional Source Comments The information contained in this document represents components of the legal health record. It is not the complete legal health record.[facility]
--- OUTSIDE RECORDS SUMMARY | 2025-06-24 14:19 | XMS_ITS | Encounter Summary ---
Author Organization [facility] Address [address] [place] [address] Care Team Providers Care Game Artist Name Role Phone Jose Martin Gray MD Primary Care Provider [phone] Encounter Details Date Type Department Care Team (Late st Contact Info) Description 02/27/2025 Lab Requisition [facility] Main Lab [address] [place] [address] Hudson Weinstein DO [address] [facility] [address] [place] [address] Encounter for screening for malignant neoplasm of colon Social History Tobacco Use Types Packs/Day Years Used Date Smoking Tobacco: Never Assessed Comments Unknown Sex and Gender Information Value Date Recorded Sex Assigned at Female 09/05/2024 9:10 AM EDT Legal Sex Female 5:32 PM EST Gender Identity Female 09/05/2024 9:10 AM EDT Sexual Orientation Straight 09/05/2024 9: 10 AM EDT documented as of this encounter Progress Notes * Hudson Weinstein DO - 02/27/2025 7:17 AM EDT Please let the patient know that the colon polyp was benign and nonprecancerous. Repeat colonoscopyin 10 years is recommended as per current guidelines. The esophagus biopsies showed evidence of acid reflux inflammation without any precancerous cells. She should be on some sort of antireflux medication such as omeprazole 20 mg daily. Her esophagus was fully dilated. If she continues to have symptoms, she should follow-up in GI clinic as instructed.Thank you. documented in this encounter Plan of Treatment Not on file documented as of this encounter Procedures Procedure Name Priority Date/Time Associated Diagnosis Comments TISSUE EXAM Routine 02/26/2025 Encounter for screening for malignant neoplasm of colon documented in this encounter Results * Tissue Exam (02/26/2025) Final Diagnosis A. Esophagus, mid, biopsy: Squamous epithelium with features of reflux esophagitis. B. Ileocecal valve, biopsy: Intestinal mucosa with slightly hyperplastic change. 02/28/2025 9:19 AM EDT [facility] at 0919 EDT Gross Description A. Esophagus, : Received in formalin labeled esophagus mid biopsy , are multiple, irregular chandler-white soft tissue fragments ranging from 0.2 x 0.1 x 0.1 cm to 0.7 x 0.3 x 0.2 cm. The specimen is entirely submitted in cassette A1, in toto, multiple pieces. MARY ELLEN LENNON student, 02/27/25 B. Large intestine, Ileocecal valve, : Received in formalin labeled large intestine, ileocecal valve , are multiple, irregular chandler-white soft tissue fragments ranging from 0.1 x 0 point by 0.1 cm to 0.3 x 0.2 x 0.2 cm. The specimen is filtered and entirely submitted in cassette B1, in toto, multiple pieces. MARY ELLEN LENNON student, 02/27/25 02/28/2025 9:19 AM EDT [facility] Disclaimer The technical components of this case were performed at [address] # [id number] 02/28/2025 9:19 AM EDT [facility] Tissue Ileocecal valve structure / Unknown 02/26/2025 02/27/2025 7:18 AM EDT Tissue specimen (specimen) Ileocecal valve structure / Unknown 02/26/2025 02/27/2025 7:18 AM EDT us Hudson Weinstein DO LAB PATHOLOGY ORDERABLES Final R esult [facility] [address] [place] [address], [place] [phone] documented in this encounter Visit Diagnoses Diagnosis Encounter for screening for malignant neoplasm of colon documented in this encounter Care Teams Game Artist Relationship Specialty Start Date End Date Jose Martin Gray MD [address] [place] [address] Dr Yuliet [place] PCP - General Internal Medicine 07/18/24 documented as of this encounter
--- OUTSIDE RECORDS SUMMARY | 2025-06-24 14:19 | XMS_ITS | Clinical Summary ---
Author Organization [facility] [address] [facility] Address [address] [place] [address] Phone Care Team Providers Care Mining Consultant Name Role Phone Jose Martin Gray MD Primary Care Provider [phone] Allergies Active Allergy Reactions Criticality Noted Date [...] before your procedure. 4000 mL 5 Active polyethylene glycol (Golytely) 236-22.74-6.74 -5.86 gram solution Take 4L by mouth once for one dose. May substitue any PEG. Starting at 2PM the day before your procedure drink 1 8oz glasses at your own pace until you complete half of the gallon. Finish 2nd half of the gallon at 8PM. 4000 mL 5 Active bisacodyL (DULCOLAX) 5 mg EC tablet Take 2 tablets by mouth right before beginning bowel prep. See instructions provided by the office 2 tablet 5 Active Active Problems Problem Noted Date Diagnosed Date Other dysphagia 08/06/2024 Personal hx of gastric bypass 05/30/2024 Gastroesophageal reflux disease without esophagi tis 05/30/2024 Irritable bowel syndrome wit h both constipation and diarrhea 05/30/2024 Immunizations Immunization Administration Dates Next Due Td Tetanus diptheria (Tdvax) 7yo and older 10/04 Social History Tobacco Use Types Packs/Day Years Used Date Smoking Tobacco: Never Assessed Comments Unknown Sex and Gender Information Value Date Recorded Sex Assigned at Female 09/05/2024 9:10 AM EDT Legal Sex Female 5:32 PM EST Gender Identity Female 09/05/2024 9:10 AM EDT Sexual Orientation Straight 09/05/2024 9: 10 AM EDT Last Filed Vital Signs Vital Sign Reading [...] Years (1 of 2 - PCV) 1977 RSV Immunization Adult Patients (1 - Risk 50-74 years 1-dose series) 2008 Zoster Vaccines (1 of 2) 2008 Cholesterol Screening (Lipid Panel) 06/04/2024 Falls Risk Assessment 06/04/2024 Hepatitis C Screening 06/04/2024 Medicare Annual Wellness Visit 06/04/2024 Osteoporosis Screening (Bone Density Screening) 06/04/2024 Social Influencers of Health Screening 06/04/2024 Depression Screening 06/26/2024 Diabetes: Annual Urine Albumin-Creatinine Ratio (uACR) 08/06/2024 Diabetes: Blood Sugar Control Test (HGBA1C) 08/06/2024 COVID-19 Vaccine ( season) 2025 03/15/2024, 04/27/2022, 07/03/2021, Additional history exists Influenza Vaccine (#1) 2025 03/15/2024, 2020 Diabetes: Annual GFR (Glomerular Filtration Rate) 08/06/2025 08/06/2024, 09/16/2020, 01/10/2020, Additional history exists DTaP,Tdap,and Td Vaccines (4 - Td or Tdap) 06/07/2033 06/07/2023, 11/16/2020, 10/04/2000 Colorectal Cancer Screening: Colonoscopy 03/02/2035 10/08/2014 HIB Vaccines Aged Out No longer eligi [...] mmol/L LAB CHEMISTRY METHOD 08/06/2024 4:44 PM [facility] Potassium 4.7 3.5 - 5.5 mmol/L LAB CHEMISTRY METHOD 08/06/2024 4:44 PM [facility] Chloride 111(H) 96 - 110 mmol/L LAB CHEMISTRY METHOD 08/06/2024 4:44 PM [facility] CO2 22 21 - 32 mmol/L LAB CHEMISTRY METHOD 08/06/2024 4:44 PM [facility] Anion Gap 6 3 - 11 LAB CHEMISTRY METHOD 08/06/2024 4:44 PM [facility] Glucose 103(H) 70 - 100 mg/dL LAB CHEMISTRY METHOD 08/06/2024 4:44 PM [facility] BUN 26(H) 5 - 25 mg/dL LAB CHEMISTRY METHOD 08/06/2024 4:44 PM [facility] Creatinine 1.07 0.50 - 1.10 mg/dL LAB CHEMISTRY METHOD 08/06/2024 4:44 PM [facility] eGFR 57(L) >=60 mL/min/1. 73m2 LAB CHEMISTRY METHOD 08/06/2024 4:44 PM [facility] Comment:Calculation based on the Chronic Kidney Disease Epidemiology Collaboration (CKD-EPI) equation refit without adjustment for race. BUN/Creatinine Ratio 24.3 LAB CHEMISTRY METHOD 08/06/2024 4:44 PM [facility] Calcium 9.2 8.5 - 10.5 mg/dL LAB CHEMISTRY METHOD 08/06/2024 4:44 PM [facility] AST (SGOT) 13 10 - 42 unit/L LAB CHEMISTRY METHOD 08/06/2024 4:44 PM [facility] ALT (SGPT) 22 10 - 60 unit/L LAB CHEMISTRY METHOD 08/06/2024 4:44 PM [facility] Alkaline Phosphatase 157(H) 42 - 121 unit/L LAB CHEMISTRY METHOD 08/06/2024 4:44 PM [facility] Total Protein 6.9 6.0 - 8.0 g/dL LAB CHEMISTRY METHOD 08/06/2024 4:44 PM EST [facility] Albumin 4.0 3.2 - 5.0 g/dL LAB CHEMISTRY METHOD 08/06/2024 4:44 PM EST [facility] Total Bilirubin 0.3 0.0 - 1.4 mg/dL LAB CHEMISTRY METHOD 08/06/2024 4:44 PM EST [facility] Blood Venous blood specimen / Unknown Venipuncture / Unknown 08/06/2024 3:31 PM EST 08/06/2024 3:59 PM EST Saeed Murphy MD LAB BLOOD ORDERABLES Final Resu lt [facility] [address] [place] [address], * External Colonoscopy Report (10/08/2014 11:21 AM EDT) Anatomical Region Laterality Modality Endoscopy Historical Provider GI~PROCEDURE ORDERABLES F inal Result from Last 3 Months or Most Recently Relevant to Health Maintenance Insurance MEDICARE [facility] on file Care Teams Mining Consultant Relationship Specialty Start Date End Date Jose Martin Gray MD [address] [place] [address] Dr Yuliet [place] PCP - General Internal Medicine 07/18/24
--- OUTSIDE RECORDS SUMMARY | 2025-06-24 14:19 | XMS_ITS | Clinical Summary ---
Author Organization [facility] Address [address] [place] [address] Care Team Providers Care Cabin Equipment Supervisor Name Role Phone Jose Martin Gray Maria Del Rosario Unavailable Curt Grider MD Unavailable [phone] Yariel Yun MD Unavailable Eliel Phipps MD Unavailable Debbie Coto MD Unavailable Allergies Active Allergy Reactions Criticality Noted Date Comments Codeine Anaphylaxis Hydromorphone Other (See Comments) 11/13/2018 Other Reaction(s): Confusion/delirium, Other Reaction(s): Confusion/delirium Other Reaction(s): Confusion/delirium Oxycodone-Acetaminophen GI Intolerance 10/11/19 14 Level of certainty: Very Certain Tramadol Other (See Comments) 10/10/2013 Level of certainty: Moderately Certain; Other Reaction(s): Confusion/delirium Level of certainty: Moderately Certain Other Reaction(s): Confusion/delirium Medications cyanocobalamin (VITAMIN B-12) 1000 MCG tablet 1 (One) tablet(s) by mouth once a day 0 Active venlafaxine ER (EFFEXOR XR) 75 MG 24 hr capsule 1 capsule(s) by mouth at bedtime to total 225 mg. at bedtime 9 Active venlafaxine ER (EFFEXOR XR) 150 MG 24 hr capsule 1 capsule(s) by mouth twice a day 9 Active glipiZIDE (GLUCOTROL) 10 MG tablet 1 (One) tablet(s) by mouth twice a day 4 Active empagliflozin (JARDIANCE) 10 mg Tab tablet tablet(s) oral 3 Active calcium carbonate-tomas min D3 (CALCIUM 600 WITH VITAMIN D3) 600 mg-10 mcg (400 unit) cap 1 by mouth once a day 9 Active lamoTRIgine (LaMICtal) 200 MG tablet 1 tablet(s) by mouth at bedtime 4 Active levothyroxine (SYNTHROID, LEVOXYL) 100 MCG tablet 1 (One) tablet(s) by mouth once a day 4 Active folic acid 0.8 mg cap capsule(s) oral 4 Active methotrexate 2.5 MG tablet tablet(s) oral 4 Active pantoprazole (PROTONIX) [address] tablet 1 tablet(s) by mouth once a day 8 Active prazosin (MINIPRESS) 1 MG capsule 1 capsule(s) by mouth once a day--takes at bedtiime 0 Active predniSONE (DELTASONE) 1 MG tablet tablet(s) oral 4 Active QUEtiapine (SeroqueL) 100 MG tablet 3 (Three) tablet(s) by mouth bedtime(total 600mg) 0 Active QUEtiapine (SeroqueL) 300 MG tablet 1 (One) tablet(s) by mouth at bedtime(total 600mg) physchiatrist reduced dosage 0 Active topiramate (TOPAMAX) 100 MG tablet 2 (Two) tablet(s) by mouth at bedtime 0 Active albuterol HFA (VENTOLIN HFA) 90 mcg/actuation aerosol inhaler 2 puffs mouth as needed 9 Active zafirlukast (ACCOLATE) 20 MG tablet 1 tablet(s) by mouth twice a day 8 Active cholecalcifero l (VITAMIN D3) 125 mcg (5,000 unit) Tab tablet 1 by mouth once a day 9 Active tiZANidine (ZANAFLEX) 2 MG tablet TAKE 1 TO 2 TABLETS BY MOUTH 3 TIMES DAILY NEEDED 540 tablet 2 5 Active Active Problems Problem Noted Date Diagnosed Date Lumbar spinal stenosis 09/27/2021 Asthma 06/07/2018 Hypothyroidism 06/07/2018 Rheumatoid arthritis 06/07/2018 Stroke 06/07/2018 Overview (11/28/2023): complicated by seizures Type 2 diabetes mellitus without complications 1 08/08/2017 Osteoarthritis 12/21/2011 Immunizations Immunization Administration Dates Next Due Influenza, Unspecified 08/08/2020 Social History Tobacco Use Types Packs/Day Years Used Date Smoking Tobacco: Never Assessed Comments Unknown Sex and Gender Information Value Date Recorded Sex Assigned at Female 08/11/2023 3:16 AM EST Legal Sex Female 4:14 PM EST Gender Identity Female 08/11/2023 3:16 AM EST Sexual Orientation Not on file Last Filed Vital Signs Vital Sign Reading Time Taken Comments Blood Pressure - - Pulse - - Temperature - - Respiratory Rate - - Oxygen Saturation - - Inhaled Oxygen Concentration - - Weight 83.5 kg (184 lb) 08/07/2023 12:0 0 AM EST Legacy value: 184 lbs Height 162.6 cm (5' 4 ) 08/07/2023 12:0 0 AM EST Legacy value: 64 in Body Mass Index 31.58 08/07/2023 12:00 AM EST Plan of Treatment Upcoming Encounters Date Type Department Care Team (Late st Contact Info) Description 07/18/2025 9:00 AM EST Office Visit [facility] Orth[facility] [address] [facility] 4th [place] [address] [facility]ar[facility] [address] [address] In Person with Physician Health Maintenance Due Date Last Done Comments Blood Pressure 1958 Lipid Panel 1958 TSH Level 1958 Urine Microalbumin 1958 Depression Screening 1970 Hepatitis C Screening 1976 Pneumococcal Vaccine: 50+ Years (1 of 2 - PCV) 1977 Breast Cancer Screening 1998 CT Colonography 2003 Colonoscopy 2003 Colorectal Cancer Screening 2003 FIT 2003 FOBT 2003 Multitarget Stool DNA (Cologuard) 2003 Sigmoidoscopy 2003 Zoster Vaccine (1 of 2) 2008 Medicare Initial AWV [id number] 01/24/2019 Diabetic Eye Exam 08/31/2019 08/30/2018 Hemoglobin A1c 01/31/2021 08/03/2020 Osteoporosis Screening 2023 COVID-19 Vaccine ( season) 2025 03/15/2024, 04/27/2022, 07/03/2021, Additional history exists Influenza Vaccine (#1) 2025 03/15/2024, 2020 DTaP,Tdap,and Td Vaccines (4 - Td or Tdap) 06/07/2033 06/07/2023, 11/16/2020, 10/04/2000 Meningococcal B Vaccines Aged Out No longer eligible based on patient's age to complete this topic Meningococcal Vaccines Aged Out No lo nger eligible based on patient's age to complete this topic Procedures Procedure Name Priority Date/Time Associated Diagnosis Comments HEMOGLOBIN, GLYCATED (CONVERSION) Routine 08/03/2020 9:35 AM EST from Last 3 Months or Most Recently Relevant to Health Maintenance Results * (ABNORMAL) HEMOGLOBIN, GLYCATED (CONVERSION) (08/03/2020 9:35 AM EST) Hemoglobin A1C 8.9(A) 4.000 - 6.000 % CONVERSION FROM [facility] Comment:ADA recommendations: ...<7%.goal of therapy...>8%.warrants therapeutic action 08/03/2020 9:35 AM EST 08/03/2020 6:09 PM EST us Georgie HYDE LAB BLOOD ORDERABLES Final R esult CONVERSION FROM [facility] from Last 3 Months or Most Recently Relevant to Health Maintenance Additional Health Concerns Infection Onset Date Last Indicated 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 11/24/2023 Insurance MEDICARE [facility] MEDICARE [employer] MEDICARE [employer] MED[employer]ARE [employer] Care Teams Cabin Equipment Supervisor Relationship Specialty Start Date End Date IsaacJose Martin [address] [place] [address] PCP - Insurance Assigned PCP 08/07/23 Curt Grider MD [address] [facility] [address] [place] [address] -b3 (Work) Orthopedic Surgery 03/21/23 Yariel Yun MD [address] [facility] [place] [address] Orthopedic Surgery 09/25/20 Eliel Phipps MD [address] [facility] [address] [place] [address] 02/14/21 Debbie Coto MD [address] [place] [address] Neurology 05/27/19
--- OUTSIDE RECORDS SUMMARY | 2025-06-24 14:20 | XMS_ITS | Clinical Summary ---
Author Organization [facility] Address [facility] [place] [address] Care Team Providers Care Police Superintendent Name Role Phone Jose Martin Gray MD Primary Care Provider [phone] Allergies Active Allergy Reactions Criticality Noted Date [...] 1 - Influenza standard series) 02/24/2025 Insurance [facility] Care Teams Police Superintendent Relationship Specialty Start Date End Date Jose Martin Gray MD [facility] [address] [place] [address] PCP - General General Internal Medicine 02/20/17
== END 2025-06-24 10:41 ==
LOC: HO.MRI 10:40
PROVIDERS: PCP Internal Medicine; Visit Provider Internal Medicine
DX: M47.812 Spondylosis without myelopathy or radiculopathy, cervical region (principal); M19.012 Primary osteoarthritis, left shoulder; Z98.890 Other specified postprocedural states
CPT/HCPCS: 72141; 73221